=== PATIENT | male | born 1950 | race Caucasian/White ===

== ENCOUNTER 2016-09-20 01:09 | Inpatient (IN) | payer OTHER, MEDICARE ==
[~2016-09-20] VITALS: Ht 177.8 cm; Wt 82.8 kg
[2016-09-20] VITALS (25 sets, daily range): BP systolic 94–132; BP diastolic 57–87; PULSE 57–80; RESP 15–20; TEMP 97.8–98.5; O2SAT 93–99
[~2016-09-20 01:09] MED LIST: ACET325 PO; ATEN-100 PO; METHY5 PO; PROV100T3 PO; VIAG100T PO
[2016-09-20] MEDS ORDERED: TEST-55 INJ (01:26)
[2016-09-20] MEDS ORDERED: ATEN25TA PO (01:26)
[2016-09-20] MEDS ORDERED: RITA20TA PO (01:26)
[2016-09-20] MEDS ORDERED: VITACAP7 PO (01:26)
[2016-09-20] MEDS ORDERED: VIAG100T PO (01:26)
[2016-09-20] MEDS ORDERED: MODA100T9 PO (01:26)
[2016-09-20] MEDS ORDERED: LEVO25TA4 PO (01:26)
[2016-09-20 01:37] LABS: AUTOMATED NEUTROPHIL # 7.8 TH/MM3 (1.8-7.7); BASOPHIL # 0.1 TH/MM3 (0-0.2); BASOPHIL % 1.1 % (0.0-2.0); EOSINOPHIL # 0.5 TH/MM3 (0-0.4); EOSINOPHIL % 4.5 % (0.0-4.0); HEMATOCRIT 41.8 % (39.0-51.0); HEMO FLAGS DIFF FINAL; LYMPH % 16.3 % (9.0-44.0); LYMPHOCYTE # 1.8 TH/MM3 (1.0-4.8); MEAN CELL VOLUME 89.5 FL (80.0-100.0); MEAN CORPUSCULAR HEMOGLOBIN 29.5 PG (27.0-34.0); MEAN CORPUSCULAR HGB CONC 32.9 % (32.0-36.0); MONO % 8.2 % (0.0-8.0); NEUT % 69.9 % (16.0-70.0); PLATELET COUNT 242 TH/MM3 (150-450); RED BLOOD COUNT 4.67 MIL/MM3 (4.50-5.90); RED CELL DISTRIBUTION WIDTH 13.5 % (11.6-17.2); WHITE BLOOD COUNT 11.2 TH/MM3 (4.0-11.0)
[2016-09-20 01:49] LABS: APTT (PATIENT) 27.6 SEC (24.3-30.1); INTERNATIONAL NORMALIZED RATIO 0.9 RATIO; PROTHROMBIN TIME - PATIENT 10.2 SEC (9.8-11.6)
[2016-09-20 01:56] LABS: ANION GAP 5 MEQ/L (5-15); BICARBONATE 28.5 MEQ/L (21.0-32.0); BLOOD UREA NITROGEN 12 MG/DL (7-18); CHLORIDE 107 MEQ/L (98-107); GLOMERULAR FILTRATION RATE 70 ML/MIN (>89); SODIUM (NA) 140 MEQ/L (136-145)
[2016-09-20 01:59] LABS: CREATINE KINASE 171 U/L (39-308)
[2016-09-20] MEDS ORDERED: HEPARIN SODIUM - IV 10,000 UNITS/10 ML VIAL IV ONE (02:15)
[2016-09-20] MEDS ORDERED: NITROGLYCERIN 2% OINT 1 GM PACKET TOPICAL ONE (02:15)
[2016-09-20] MEDS ORDERED: ASPIRIN 81 MG CHEW TAB CHEW ONE (02:15)
[2016-09-20 02:16] LABS: CKMB 7.8 NG/ML (0.5-3.6)
--- NOTE | 2016-09-20 02:33 | PD ---
HPI Chief Complaint: Chest Pain Time Seen by Provider: 01:28 Travel History International Travel<30 days: No Contact w/Intl Traveler<30days: No Traveled to known affect area: No History of Present Illness HPI The patient is a 66 year old male who presents to the [facility] emergency department with a history of a burning sensation in the center of his chest that began this morning just after coming back from eating at noon. The patient reports that the pain has been coming and going. He reports it has been associated with symptoms of acid reflux and belching. The patient denies having any shortness of breath. He denies having any radiation of pain into his jaw. He does however report having a weakness in bilateral upper extremities with a mild sensation of tingling. He denies any prior history of myocardial infarction or congestive heart failure. He reports that he does have a sinus arrhythmia and occasional tachycardia for which she takes atenolol. He reports that yesterday his heartbeat seemed to be irregular therefore he took 2 extra doses of his a atenolol. The patient reports that the chest pain is a 3/10 in severity at this time. He reports that it lasted for 10-15 minutes at a time. He reports that it was improved initially with stretching and extending his back and walking, however that this would not help either. The patient reports that he smokes a pack of cigarettes per day. He denies any history of hypertension or diabetes mellitus. The patient denies any recent fevers, cough, congestion, neck pain, abdominal pain, vomiting, diarrhea , urinary symptoms, or neurologic symptoms. [facility] Past Medical History Narrative Medical The patient's past medical history is significant for bladder cancer in 2009 and in 2011, history of arthritis, history of skin cancer, history of tachycardia and a sinus arrhythmia, history of a lymphocytic colitis, history of chronic low back pain, chronic fatigue, history of sleep apnea, history of erectile dysfunction-he last took Viagra 8 weeks ago. Arthritis: Yes Anxiety: Yes Depression: Yes Cancer: Yes (BLADDER, SKIN ) Cardiovascular Problems: Yes (ARRHYTHMIA) Diabetes: No Diminished Hearing: No Diverticulitis: Yes (LYMPHOCITIC CHOLITIS) Endocrine: No Gastrointestinal Disorders: Yes (LYMPHOCYTIC COLITIS) Glaucoma: No Genitourinary: No Hepatitis: No Hiatal Hernia: No Hypertension: Yes Immune Disorder: No Musculoskeletal: Yes (BACK PAIN) Neurologic: Yes (CHRONIC FATIGUE) Psychiatric: No Reproductive: No Respiratory: Yes (SLEEP APNEA (NO CPAP)) Thyroid Disease: No Tetanus Vaccination: > 5 Years Influenza Vaccination: Yes Past Surgical History Narrative Surgical The patient's past surgical history is significant for bladder cancer resection by cystoscopy, history of tonsillectomy, right knee surgery. AICD: No Genitourinary Surgery: Yes (CYSTO, TURBT) Joint Replacement: No Oral Surgery: Yes (TONSILLECTOMY) Pacemaker: No Tonsillectomy: Yes Other Surgery: Yes Social History Alcohol Use: Yes (OCCAS. BEER) Tobacco Use: Yes (1 PPD) Substance Use: No Allergies-Medications (Allergen,Severity, Reaction): Coded Allergies: Dilaudid (Unverified Adverse Reaction, Severe, N & V, 09/20/16) Reported Meds & Prescriptions Reported Meds & Active Scripts Active Reported Ritalin IR (Methylphenidate HCl) 20 Mg Tab 20 Mg PO TIDAC Modafinil 100 Mg Tab 100 Mg PO BID Atenolol 25 Mg Tab 25 Mg PO BID Viagra (Sildenafil Citrate) 100 Mg Tab 100 Mg PO DAILY PRN Testosterone (Testosterone (Bulk)) 1 Pow Pow 10 Mg INJ 2XWEEK B Complex (B-Complex Vitamins) 1 Cap 1 Cap PO DAILY Levothyroxine (Levothyroxine Sodium) 25 Mcg Tab 25 Mcg PO DAILY Review of Systems General / Constitutional: No: Fever Eyes: No: Visual changes HENT: No: Headaches Cardiovascular: Positive: Chest Pain or Discomfort Respiratory: No: Shortness of Breath Gastrointestinal: Positive: Indigestion, No: Nausea, Vomiting, Diarrhea, Abdominal Pain Genitourinary: No: Dysuria Musculoskeletal: No: Pain Skin: No Rash Neurologic: Positive: Weakness, Paresthesia (bilateral upper extremity), No: Focal Abnormalities, Coordination Problem, Change in Mentation, Slurred Speech, Sensory Disturbance Psychiatric: No: Depression Endocrine: No: Polydipsia Hematologic/Lymphatic: No: Easy Bruising Physical Exam Narrative General: The patient is well-developed well-nourished male in no acute distress. Head and Neck exam: Head is normocephalic atraumatic. Eyes: EOMI, pupils are equal round and reactive to light. Nose: Midline septum with pink mucous membranes Mouth: Dentition unremarkable. Moist mucus membranes. Posterior oropharynx is not erythematous. No tonsillar hypertrophy. Uvula midline. Airway patent. Neck: No palpable lymphadenopathy. No nuchal rigidity. No thyromegaly. Cardiovascular: Regular rate and rhythm without murmurs, gallops, or rubs. No pulse deficit to the extremities and simultaneous auscultation and palpation of his radial artery. Lungs: Clear to auscultation bilaterally. No wheezes, rhonchi, or rales. Abdomen: Soft, without tenderness to palpation in all 4 quadrants of the abdomen. No guarding, rebound, or rigidity. Normal bowel sounds are audible. Extremities: No clubbing, cyanosis, or edema. 2+ pulses in all 4 extremities. No calf tenderness on palpation. Back: No spinous process tenderness to palpation. No costovertebral angle tenderness to palpation. Neurologic Exam: Grossly nonfocal. Skin Exam: No rash noted. Intact skin that is warm and dry. Data Data Last Documented VS Vital Signs Date Time Temp Pulse Resp B/P Pulse Ox O2 Delivery O2 Flow Rate FiO2 09/20/16 02:40 70 15 130/82 96 Room Air 09/20/16 01:10 98.1 Orders Electrocardiogram (09/20/16 01:26) Complete Blood Count With Diff (09/20/16 01:26) Basic Metabolic Panel (Bmp) (09/20/16 01:26) Ckmb (Isoenzyme) Profile (09/20/16 01:26) Troponin I (09/20/16 01:26) Chest, Single Ap (09/20/16 01:26) Iv Access Insert/Monitor (09/20/16:26) Ecg Monitoring (09/20/16:26) Oxygen Administration (09/20/16:26) Oximetry (09/20/16 01:26) Act Partial Throm Time (Ptt) (09/20/16 01:28) Prothrombin Time / Inr (Pt) (09/20/16 01:28) CKMB (09/20/16 01:25) CKMB% (09/20/16 01:25) Nitroglycerin Sl (Nitrostat Sl) (09/20/16 02:15) Nitroglycerin 2% Oint (Nitroglycerin 2% (09/20/16 02:15) Aspirin Chew (Aspirin Chew) (09/20/16 02:15) Heparin Infusion SERENA.Q1H (09/20/16 02:03) Heparin Inj (Heparin Inj) (09/20/16 02:15) Heparin-D5w Inj (Heparin-D5w Inj) (09/20/16 02:15) Act Partial Throm Time (Ptt) (09/20/16 02:03) Prothrombin Time / Inr (Pt) (09/20/16 02:03) Cbc No Diff, Includes Plts (09/20/16 02:03) Cbc No Diff, Includes Plts (09/23/16 06:00) Act Partial Throm Time (Ptt) (09/20/16 09:03) Occult Blood (Hemoccult) Stool (09/20/16 02:03) Pantoprazole Inj (Protonix Inj) (09/20/16 03:00) Sodium Chlorid 0.9% 500 Ml Inj (Ns 500 M (09/20/16 03:45) Admit Order (Ed Use Only) (09/20/16 03:56) Consult Cardiology (09/20/16 ) Labs Laboratory Tests Test 09/20/16 01:25 White Blood Count 11.2 TH/MM3 Red Blood Count 4.67 MIL/MM3 Hemoglobin 13.8 GM/DL Hematocrit 41.8 % Mean Corpuscular Volume 89.5 FL Mean Corpuscular Hemoglobin 29.5 PG Mean Corpuscular Hemoglobin 32.9 % Concent Red Cell Distribution Width 13.5 % Platelet Count 242 TH/MM3 Mean Platelet Volume 8.9 FL Neutrophils (%) (Auto) 69.9 % Lymphocytes (%) (Auto) 16.3 % Monocytes (%) (Auto) 8.2 % Eosinophils (%) (Auto) 4.5 % Basophils (%) (Auto) 1.1 % Neutrophils # (Auto) 7.8 TH/MM3 Lymphocytes # (Auto) 1.8 TH/MM3 Monocytes # (Auto) 0.9 TH/MM3 Eosinophils # (Auto) 0.5 TH/MM3 Basophils # (Auto) 0.1 TH/MM3 CBC Comment DIFF FINAL Differential Comment Prothrombin Time 10.2 SEC Prothromb Time International 0.9 RATIO Ratio Activated Partial 27.6 SEC Thromboplast Time Sodium Level 140 MEQ/L Potassium Level 4.0 MEQ/L Chloride Level 107 MEQ/L Carbon Dioxide Level 28.5 MEQ/L Anion Gap 5 MEQ/L Blood Urea Nitrogen 12 MG/DL Creatinine 1.05 MG/DL Estimat Glomerular Filtration 70 ML/MIN Rate Random Glucose 166 MG/DL Calcium Level 9.2 MG/DL Total Creatine Kinase 171 U/L Creatine Kinase MB 7.8 NG/ML Troponin I 0.60 NG/ML MDM Medical Decision Making Medical Screen Exam Complete: Yes Emergency Medical Condition: Yes Medical Record Reviewed: Yes Interpretation(s) Laboratory Tests Test 09/20/16 01:25 White Blood Count 11.2 TH/MM3 (4.0-11.0) Monocytes (%) (Auto) 8.2 % (0.0-8.0) Eosinophils (%) (Auto) 4.5 % (0.0-4.0) Neutrophils # (Auto) 7.8 TH/MM3 (1.8-7.7) Eosinophils # (Auto) 0.5 TH/MM3 (0-0.4) Estimat Glomerular Filtration 70 ML/MIN (>89) Rate Random Glucose 166 MG/DL (74-106) Creatine Kinase MB 7.8 NG/ML (0.5-3.6) Troponin I 0.60 NG/ML (0.02-0.05) Last Impressions Chest X-Ray 09/20/16 0126 Signed Impressions: Service Date/Time: Tuesday, September 20, 2016 02:16 - CONCLUSION: 1. No active disease. Eric Bowie MD Differential Diagnosis Acute coronary syndrome, versus acid reflux, versus pleurisy, versus pneumonia Narrative Course During the course of the patients emergency department visit, the patients history, examination, and differential diagnosis were reviewed with the patient. The patient had IV access obtained and blood work sent for analysis. The patient had an EKG done on arrival. The patient's EKG shows a sinus rhythm heart rate of 67, no acute ST segment elevation is noted. T waves are inverted in V1, V2, ST depression is noted in V5, lead 2. T waves are inverted in aVL. The patient was provided aspirin 162 mg by mouth 1. Nitroglycerin sublingual every 5 minutes 3 when necessary chest pain, nitroglycerin 1 inch the chest wall was applied. The patients laboratory studies were reviewed and remarkable for a troponin of 0.60. The patient was started on heparin per [place] protocol. A CBC that shows a white count of 11.2, hemoglobin 13.8, platelets 242 with 8.2 monocytes, CMP is remarkable for glucose of 166, CPK 171, MB percent 7.8, troponin I 0.60, PT PTT unremarkable Radiology studies were reviewed and remarkable for a chest x-ray that showed no acute abnormality. The patient on reexamination reported that his chest pain resolved with nitroglycerin. The patient's case was discussed with Dr. Argueta who did agree to see the patient in consultation. The patients results were discussed with the patient, including the plan of care. I explained that further testing and/ or monitoring is indicated based on the patients history, examination, and/ or laboratory findings. Therefore, I recommended admission for additional evaluation. The patient expressed understanding and was agreeable with this plan. The patient was admitted to the hospital in guarded condition and [facility] Physician Communication Physician Communication The patient's case was discussed with Dr. Bermeo who did agree to admit the patient for further evaluation and treatment at this time. Diagnosis Primary Impression: Acute non-ST segment elevation myocardial infarction Admitting Information Admitting Physician Requests: it Nadya Leong MD Sep 20, 2016 02:33
[2016-09-20] MEDS: HEPARIN-D5W INJ 250 ML IV SCH (02:41)
[2016-09-20] MEDS: NITROGLYCERIN 0.4 MG SL 25 TABS/BTL SL PRN ×4 (02:42→16:58)
--- NOTE | 2016-09-20 02:43 | RADRPT ---
EXAM DATE/TIME: 09/20/2016 02:16 [place] COMPARISON: No previous studies available for comparison. INDICATIONS : Shortness of breath. MEDICAL HISTORY : None. SURGICAL HISTORY : None. ENCOUNTER: Initial ACUITY: 1 day PAIN SCORE: Non-responsive. LOCATION: Bilateral chest FINDINGS: A single view of the chest demonstrates the lungs to be symmetrically aerated without evidence of mas s, infiltrate or effusion. The cardiomediastinal contours are unremarkable. Osseous structures are intact. CONCLUSION: 1. No active disease. Eric Bowie MD on September 20, 2016 at 2:40 Board Certified Radiologist. This report was verified electronically.
[2016-09-20] MEDS ORDERED: PANTOPRAZOLE SODIUM 40 MG VIAL IV PUSH ONE (03:00)
[2016-09-20] MEDS ORDERED: SODIUM CHLORID 0.9% 500 ML INJ 500 ML IV ONE (03:45)
[2016-09-20] MEDS ORDERED: BISACODYL 10 MG SUPP PR PRN (04:00)
[2016-09-20] MEDS ORDERED: ACETAMINOPHEN 325 MG TAB PO PRN (04:00)
[2016-09-20] MEDS ORDERED: ACETAMINOPHEN/HYDROcodone 325 MG/5 MG TAB PO PRN (04:00)
[2016-09-20] MEDS ORDERED: SODIUM CHLORIDE 0.9% FLUSH 5 ML FLUSH FLUSH PRN (04:00)
[2016-09-20] MEDS ORDERED: MORPHINE SULFATE 4 MG/ML INJ IV PRN (04:00)
[2016-09-20] MEDS ORDERED: ONDANSETRON HCL 4 MG/2 ML VIAL IVP PRN (04:00)
--- NOTE | 2016-09-20 04:21 | HHI.HP ---
HPI Service [facility] Primary Care Physician Non-Staff Admission Diagnosis Non STEMI Diagnoses: (1) NSTEMI (non-ST elevated myocardial infarction) Diagnosis: Principal (2) Dehydration Diagnosis: Principal (3) Tobacco abuse Diagnosis: Principal Travel History International Travel<30 Days: No Contact w/Intl Traveler <30 Da: No Traveled to Known Affected Are: No History of Present Illness This is a 66-year-old male with a PMH of HTN, Bladder CA, Anxiety, Depression, Sleep Apnea, Erectile Dysfunction, Tobacco Abuse and Chronic Back Pain who presented to the ER w/ complaints of epigastric/chest pain since approx 12pm yesterday. States felt pain was due to heartburn, pain initially improved w/ belching and sitting up straight, however pain progressively more severe throughout the day. Denies fever, chills, cough or SOB. On arrival, BP 132/87 , HR 76, O2 sat 96% on RA, Afebrile. CBC unremarkable except for WBC 11.2. Chemistry unremarkable except for GFR 70. Troponin 0.60. EKG with no acute ischemia. CXR with no acute findings. Dr. rAgueta consulted by ER physician, recommended Heparin gtt and will eval in am. Currently chest pain free. Of note, pt w/ h/o Erectile Dysfunction on Viagra however last dose approx 2 months ago. Review of Systems Except as stated in HPI: all other systems reviewed are Neg ROS: 14 point review of systems otherwise negative. Past Family Social History Past Medical History PMH: HTN, Bladder CA, Anxiety, Depression, Sleep Apnea, Erectile Dysfunction, Tobacco Abuse and Chronic Back Pain Past Surgical History PAST SURGICAL HISTORY: Tonsillectomy, TURP, Right Knee Surgery Allergies: Coded Allergies: Dilaudid (Unverified Adverse Reaction, Severe, N & V, 09/20/16) Family History PAST FAMILY HISTORY: Reviewed. No h/o DM or CAD Social History PAST SOCIAL HISTORY: Occasional alcohol. Smokes 1ppd. Negative for drugs. Physical Exam Vital Signs Vital Signs Date Time Temp Pulse Resp B/P Pulse Ox O2 Delivery O2 Flow Rate FiO2 09/20/16 02:40 70 15 130/82 96 Room Air 09/20/16 01:14 72 16 129/80 98 09/20/16 01:10 98.1 76 20 132/87 96 Room Air Physical Exam PE: GENERAL: Very pleasant middle-aged male in no acute distress. HEENT: PERRLA, EOMI. No scleral icterus or conjunctival pallor. No lid lag or facial droop. CARDIOVASCULAR: Regular rate and rhythm. No obvious murmurs to auscultation. No chest tenderness to palpation. RESPIRATORY: No obvious rhonchi or wheezing. Clear to auscultation. Breath sounds equal bilaterally. GASTROINTESTINAL: Abdomen soft, non-tender, nondistended. BS normal. MUSCULOSKELETAL: Extremities without clubbing, cyanosis, or edema. No obvious deformities. NEUROLOGICAL: Awake, alert and oriented x4. No focal neurologic deficits. Moving both upper and lower extremities spontaneously. Laboratory Laboratory Tests Test 09/20/16 01:25 White Blood Count 11.2 Red Blood Count 4.67 Hemoglobin 13.8 Hematocrit 41.8 Mean Corpuscular Volume 89.5 Mean Corpuscular Hemoglobin 29.5 Mean Corpuscular Hemoglobin 32.9 Concent Red Cell Distribution Width 13.5 Platelet Count 242 Mean Platelet Volume 8.9 Neutrophils (%) (Auto) 69.9 Lymphocytes (%) (Auto) 16.3 Monocytes (%) (Auto) 8.2 Eosinophils (%) (Auto) 4.5 Basophils (%) (Auto) 1.1 Neutrophils # (Auto) 7.8 Lymphocytes # (Auto) 1.8 Monocytes # (Auto) 0.9 Eosinophils # (Auto) 0.5 Basophils # (Auto) 0.1 CBC Comment DIFF FINAL Differential Comment Prothrombin Time 10.2 Prothromb Time International 0.9 Ratio Activated Partial 27.6 Thromboplast Time Sodium Level 140 Potassium Level 4.0 Chloride Level 107 Carbon Dioxide Level 28.5 Anion Gap 5 Blood Urea Nitrogen 12 Creatinine 1.05 Estimat Glomerular Filtration 70 Rate Random Glucose 166 Calcium Level 9.2 Total Creatine Kinase 171 Creatine Kinase MB 7.8 Troponin I 0.60 Result Diagram: 09/20/1612409/20/16124 Assessment and Plan Problem List: (1) NSTEMI (non-ST elevated myocardial infarction) ICD Code: I21.4 Status: Acute (2) Dehydration ICD Code: E86.0 Status: Acute (3) Tobacco abuse ICD Code: Z72.0 Status: Acute Assessment and Plan A/P: 1. NSTEMI: c/o acute chest/epigastric pain earlier today, Trop 0.60, EKG w/ no acute changes. Dr. Argueta consulted by ER physician, recommended Heparin gtt and will eval in am. Currently chest pain free. Morphine prn. Check serial cardiac enzymes, lipid profile, Hgb A1c, TSH. ASA, Statin, B-abdoulaye. Admit to [facility], telemetry. 2. Dehydration: GFR 70, IVF for hydration, repeat labs in am. 3. Tobacco Abuse: Counselled. Ativan prn if needed. No NicoDerm to avoid vasoconstriction. 4. DVT Prophylaxis: Heparin gtt 5. Social work for d/c planning as needed. 6. Case discussed w/ ER physician at length. Physician Certification 2 Midnight Certification Type: Admission for Inpatient Services Order for Inpatient Services The services are ordered in accordance with Medicare regulations or non- Medicare payer requirements, as applicable. In the case of services not specified as inpatient-only, they are appropriately provided as inpatient services in accordance with the 2-midnight benchmark. Estimated LOS (days): 2 days is the estimated time the patient will need to remain in the hospital, assuming treatment plan goals are met and no additional complications. Post-Hospital Plan: Not yet determined Debbie Bermeo MD Sep 20, 2016 04:21
[2016-09-20] MEDS: SODIUM CHLOR 0.9% 1000 ML INJ 1,000 ML IV SCH ×2 (04:41→13:58)
[2016-09-20 08:31] LABS: APTT (PATIENT) 57.5 SEC (24.3-30.1)
[2016-09-20 09:00] LABS: HDL CHOLESTEROL 40.9 MG/DL (40.0-60.0); LDL CHOLESTEROL 118 MG/DL (0-99)
[2016-09-20] MEDS ORDERED: SODIUM CHLORIDE 0.9% FLUSH 5 ML FLUSH FLUSH SCH (09:00)
[2016-09-20] MEDS ORDERED: PRAVASTATIN SOD 40 MG TAB PO SCH (09:00)
[2016-09-20] MEDS: METOPROLOL TARTRATE 25 MG TAB PO SCH ×2 (09:24→20:13)
[2016-09-20] MEDS: ASPIRIN EC 81 MG TABEC PO SCH (09:27)
[2016-09-20] MEDS ORDERED: HEPARIN-NS/PF INJ 500 ML ONE (09:41)
[2016-09-20] MEDS ORDERED: MIDAZOLAM HCL 2 MG/2 ML VIAL ONE (09:41)
[2016-09-20] MEDS ORDERED: HEPARIN SODIUM - IV 10,000 UNITS/10 ML VIAL ONE (09:42)
[2016-09-20] MEDS ORDERED: NITROGLYCERIN INJ 5 ML ONE (09:42)
[2016-09-20] MEDS ORDERED: VERAPAMIL HCL 5 MG/2 ML VIAL ONE (09:51)
--- NOTE | 2016-09-20 09:57 | MB ---
cc: SCOTT BARDALES DO DATE OF CONSULTATION: 09/20/2016 REASON FOR CONSULTATION NSTEMI. HISTORY OF PRESENT ILLNESS Sameer Redman is a pleasant 66-year-old male who presents to [facility] on September 20, 2016 due to chest burning. He states that he felt a burn in his chest all-day yesterday. He was belching and kind of felt slightly better but it was never relieved. He was also sitting up straight and that made him feel somewhat better. He denies fevers, chills, cough or shortness of breath. He has never had an episode like this before. During initial lab draws he was found to have a troponin of 0.60. At that time he was placed on a heparin drip. In seeing him this morning he has no current chest pain or shortness of breath. He states the chest pain went away when he was given nitroglycerin. PAST MEDICAL HISTORY 1. Hypertension. 2. Bladder cancer. 3. Anxiety. 4. Depression. 5. Sleep apnea. 6. Erectile dysfunction. 7. History of tobacco abuse. 8. Chronic back pain. PAST SURGICAL HISTORY 1. Tonsillectomy. 2. TURP. 3. Right knee surgery. ALLERGIES DILAUDID CAUSES NAUSEA OR VOMITING. MEDICATIONS 1. Modafinil 100 mg b.i.d. 2. Synthroid 25 mcg daily. 3. Ritalin IR 20 mg t.i.d. 4. Viagra 100 mg daily as needed. 5. Atenolol 25 mg b.i.d. 6. Testosterone 10 mg injected. FAMILY HISTORY Denies premature coronary artery disease or sudden cardiac within the family. SOCIAL HISTORY Occasionally drinks alcohol. Has smoked for a number of years originally smoking three packs per day and then quit for 10 years then restarted smoking at one pack per day. Denies drugs. REVIEW OF SYSTEMS 14-systems were reviewed including osteopathic with pertinent positives and negatives as above, otherwise negative. PHYSICAL EXAMINATION VITAL SIGNS: Temperature 98.1, heart rate 69, blood pressure 115/65, respirations 16, pulse ox 96% on room air. GENERAL: In general the patient appears well, in no acute distress, alert, awake and oriented x3. HEENT: Extraocular muscles intact. Mucous membranes moist. NECK: Supple. No JVD at 45 degrees. No carotid bruits heard bilaterally. Carotid upstroke is brisk in nature. HEART: Regular rate and rhythm. Positive first and second heart sounds with no noted murmurs, gallops or rubs. PMI does not appear displaced. LUNGS: Decreased breath sounds at bilateral bases but no overt wheezes, rales or rhonchi. ABDOMEN: Soft, nontender, nondistended. No organomegaly noted. EXTREMITIES: No clubbing, cyanosis or edema. Femoral and distal pulses intact bilaterally. NEUROLOGIC: No focal deficits. MUSCULOSKELETAL: Osteopathically no kyphoscoliosis, lordosis or paraspinal tender points. ELECTROCARDIOGRAM Electrocardiogram (September 20, 2016 at 0116): Normal sinus rhythm, mild ST depression inferolaterally, biphasic T-waves in V1 and V2. IMPRESSION 1. Chest pain concerning for coronary insufficiency. 2. NSTEMI. 3. History of hypertension. 4. Tobacco abuse. RECOMMENDATIONS 1. Due to Mr. Redman's chest pain and elevated troponin, the recommendation is that he undergo cardiac catheterization. He understands the risks, benefits and alternatives and signs consent as such. 2. Will check a 2-D echo to look at his overall left ventricular function, cardiac structure and possible valulopathies. 3. He will be further risk stratified including a lipid profile and hemoglobin A1c. 4. I spoke to him for greater than three minutes about tobacco cessation which he understands. 5. Further recommendations will be made after coronary visualization. Thank you for allowing me to see Sameer Redman. If there are any questions, please do not hesitate to call. Scott Bardales DO VGP/BT /9:29 AM /9:45 AM
[2016-09-20] MEDS ORDERED: SODIUM CHLORIDE 0.9% FLUSH 5 ML FLUSH IVF PRN (10:45)
[2016-09-20] MEDS ORDERED: IOHEXOL 350 MG/ML 100 ML BTL (for Cath Lab) OTHER ONE (11:25)
--- NOTE | 2016-09-20 12:10 | EKG ---
Date Performed: 09/20/2016 Time Performed: 01:16:44 PTAGE: 66 years EKG: Sinus rhythm MODERATE ST DEPRESSION Compared to the previous tracing, nonspecific ST segment changes are now not ed in the inferolateral leads ABNORMAL ECG PREVIOUS TRACING : 04/29/2013 10.18 DOCTOR: Obdulio Rangel Interpretating Date/Time 09/20/2016 12:08:13
--- NOTE | 2016-09-20 13:07 | MA ---
cc: SCOTT BARDALES DO DATE: 09/20/2016 PROCEDURE Left heart catheterization, coronary angiogram, moderate sedation 15 minutes. PREPROCEDURE DIAGNOSIS NSTEMI, chest pain. POSTPROCEDURE DIAGNOSIS Multivessel coronary artery disease, NSTEMI. MEDICATION USED 1. Versed 1 mg. 2. Fentanyl 50 mcg. 3. Verapamil 2.5 mg. 4. Nitro 200 mcg. CONTRAST USED 55 cc. FLUOROSCOPY TIME Three minutes. ESTIMATED BLOOD LOSS 10 cc. PROCEDURAL SUMMARY Sameer Redman is a pleasant 66-year-old male who originally presented with chest pain to the emergency room and was found to have an elevated troponin. Due to his chest pain and elevated troponin it was felt that he should undergo coronary visualization. The risks, benefits and alternatives were explained to him and he consented as such. He was brought to the lab and prepped in the usual sterile fashion. The right radial artery was accessed using a modified Seldinger technique and placement of a 5/6 Slender sheath. This was easily aspirated and flushed. A JR4 was then advanced to the ascending aorta over a J-wire and across the aortic valve. Left ventricular end-diastolic pressure was measured at 22. JR4 was then pulled back across the aortic valve showing no significant gradient of aortic stenosis. The JR4 was used for nonselective angiography of the right coronary artery which showed a dominant vessel with a mid lesion of 95%. The JR4 was then exchanged for a JL 3.5 which was used for selective angiography of the left coronary system. The left main is a normal-appearing vessel with 10% in the proximal portion. It bifurcates into an LAD and left circumflex. The LAD has a tight proximal lesion of 95% right at the bifurcation of the first diagonal. The midportion of the LAD has a 50% lesion. The diagonal covers a large area and has no significant disease other than the proximal portion from the bifurcation lesion. The circumflex is a relatively normal-appearing vessel with one large obtuse marginal off of it and no significant disease. The JL 3.5 was then removed over a J-wire. I spoke to the patient and let him know that he should at least consider open heart bypass and that was my recommendation and he agreed to. A radial sheath was placed over the radial arteriotomy with removal of the sheath and hemostasis obtained. At the time of leaving the label cutter he had no chest pain. He left the label cutter cardiovascularly stable. IMPRESSIONS 1. NSTEMI. 2. Multivessel coronary artery disease. 3. Tobacco abuse. RECOMMENDATIONS 1. Because Manjeet has significant lesion of the proximal LAD as well as at the bifurcation of the LAD/diagonal and the RCA, I felt that he should at least consider open heart surgery. His significant other did mention that his most recent hemoglobin A1c was 6.3 putting him in the pre-diabetes/diabetes with a significant lesion in the proximal LAD as well as two-vessel disease. 2. Will obtain a 2-D echo to look at his overall left ventricular function as well as cardiac structure and valvulopathies. 3. I spoke to Dr. Spear about the case who agrees that further workup should be done from a cardiothoracic surgery standpoint. 4. He will be placed back on a heparin drip due to his NSTEMI and significant disease. 5. If he does have any chest pain he may need a nitro drip to further alleviate this. Thank you for allowing me to see Sameer Redamn. If there are any questions, please do not hesitate to call. Scott Bardales DO VGP/BT /12:45 PM /12:56 PM MTDD
[2016-09-20 14:51] LABS: APTT (PATIENT) 32.8 SEC (24.3-30.1)
[2016-09-20] MEDS ORDERED: INSULIN REGULAR (IV INFUSION) 100 UNITS in SODIUM CHLORIDE 0.9% INJ 100 ML IV SCH (15:00)
[2016-09-20] MEDS ORDERED: CHLORHEXIDINE GLUCONATE 4% SOLN 120 ML BTL TOPICAL SCH (15:00)
[2016-09-20] MEDS ORDERED: SODIUM CHLORIDE 0.9% FLUSH 5 ML FLUSH IV FLUSH PRN (15:00)
[2016-09-20] MEDS ORDERED: METOPROLOL TARTRATE 25 MG TAB PO SCH (15:00)
[2016-09-20] MEDS ORDERED: ceFAZolin 2 GM PREMIX 50 ML IV SCH (15:00)
[2016-09-20] MEDS ORDERED: CEFAZOLIN INJ 500 MG in SODIUM CHLORIDE 0.9% IRR BTL 500 ML IRRIGATION SCH (15:00)
[2016-09-20] MEDS ORDERED: PAPAVERINE INJ 60 MG, NITROGLYCERIN INJ 100 MCG, DILTIAZEM INJ 100 MG in SODIUM CHLORID... IRRIGATION SCH (15:00)
--- NOTE | 2016-09-20 15:23 | EC ---
Study Study Date:09/20/2016 STUDY CONCLUSIONS SUMMARY LEFT VENTRICLE: The cavity size was normal. Wall thickness was normal. Systolic function was moderately reduced. The estimated ejection fraction was in the range of 35% to 40%. Distal anteroseptal hypokinesis. If LV function is below 40, please consider prescribing an ACEI or ARB or document rationale for non-use. PROCEDURE DATA STUDY STATUS: Elective. Procedure: Transthoracic echocardiography. Image quality was good. Scanning was performed from the parasternal, apical, and subcostal acoustic windows. Study completion: The patient tolerated the procedure well. Transthoracic echocardiography. M-mode, complete 2D, complete spectral Doppler, and color Doppler. Height: Height: 70in. Weight: Weight: 164.7lb. Body mass index: BMI: 23.7kg/m^2. Body surface area: BSA: 1.92m^2. Patient status: Inpatient. CARDIAC ANATOMY LEFT VENTRICLE: The cavity size was normal. Wall thickness was normal. Systolic function was moderately reduced. The estimated ejection fraction was in the range of 35% to 40%. Distal anteroseptal hypokinesis. AORTIC VALVE: Trileaflet; normal thickness leaflets. Doppler: Transvalvular velocity was within the normal range. There was no stenosis. No regurgitation. Valve area: 2.49cm^2 (Vmax). Indexed valve area: 1.3cm^2/m^2 (Vmax). AORTA: Aortic root: The aortic root was normal in size. MITRAL VALVE: Structurally normal valve. Doppler: Transvalvular velocity was within the normal range. There was no evidence for stenosis. No regurgitation. Peak gradient: 4mm Hg (D). LEFT ATRIUM: The atrium was normal in size. RIGHT VENTRICLE: The cavity size was normal. Wall thickness was normal. PULMONIC VALVE: Doppler: Transvalvular velocity was within the normal range. There was no evidence for stenosis. No regurgitation. TRICUSPID VALVE: Structurally normal valve. Doppler: Transvalvular velocity was within the normal range. No regurgitation. PULMONARY ARTERY: The main pulmonary artery was normal-sized. Systolic pressure was within the normal range. RIGHT ATRIUM: The atrium was normal in size. PERICARDIUM: There was no pericardial effusion. SYSTEMIC VEINS: Inferior vena cava: The vessel was normal in size. Patient weight: 164.7lb _Ejection fraction:_ 65-75% _Fractional shortening:_ 32% up to 5Kg 5-11.5Kg 11.6-22.9Kg 23-45Kg 45-57Kg Aortic Root 7-13 <17 13-22 17-27 17-27 LA diam 6-13 <23 24-38 33-47 37-40 RVID 10-17 7-15 7-15 7-18 8-17 LVIDd 12-22 <32 24-38 33-47 37-40 LVPW 2-4 3-6 5-7 6-8 7-8 IVS 2-4 3-6 5-7 6-8 7-8 BASIC MEASUREMENTS ADULT NORMAL Left ventricle LV internal dimension, ED, chordal 48.8 mm 43-52 level, PLAX LV internal dimension, ES, chordal *42.6 mm 23-38 level, PLAX Fractional shortening, chordal level, *13 % >29 PLAX LV posterior wall thickness, ED 8.19 mm IVS/LVPW ratio, ED 1.03 <1.3 Ventricular septum Septal thickness, ED 8.45 mm Aortic valve Leaflet separation 20 mm 15-26 BASIC MEASUREMENTS ADULT NORMAL Aortic valve Leaflet separation 20 mm 15-26 Aorta Root diameter, ED 33 mm 20-37 Left atrium Anterior-posterior dimension, ES 29 mm 19-40 Anterior-posterior dimension index, ES 1.51 cm/m^2 <2.2 LA/aortic root ratio 0.88 DOPPLER MEASUREMENTS ADULT NORMAL Aortic valve Peak velocity, S 89.6 cm/s Valve area, Vmax 2.49 cm^2 Valve area index, Vmax 1.3 cm^2/m^2 Mitral valve Peak E-wave velocity 102 cm/s Peak A-wave velocity 51.8 cm/s Deceleration time 165 ms 150-230 Peak gradient, D 4 mm Hg Peak E/A ratio 2 Pulmonic valve Peak velocity, S 73.3 cm/s LEGEND: Mean values are shown as u=mean value. Asterisk (*) sutherland values outside specified normal range. Prepared and signed by Willie Pace [id number]
[2016-09-20] MEDS: LEVOTHYROXINE SODIUM 25 MCG TAB PO SCH (15:30)
--- NOTE | 2016-09-20 15:30 | PD.CAR.PN ---
CVT Progress Note Subjective/Hospital Course: sts data discussed with pt RISK SCORES About the STS Risk Calculator Procedure: CAB Only Risk of Mortality: 1.058% Morbidity or Mortality: 12.573% Long Length of Stay: 4.765% Short Length of Stay: 46.861% Permanent Stroke: 1.025% Prolonged Ventilation: 8.357% DSW Infection: 0.49% Renal Failure: 2.386% Reoperation: 4.854% Objective: Vital Signs Date Time Temp Pulse Resp B/P Pulse Ox O2 Delivery O2 Flow Rate FiO2 09/20/16 13:00 63 09/20/16 12:00 60 09/20/16 11:00 57 09/20/16 11:00 97.8 64 16 94/57 95 09/20/16 09:07 98.1 65 18 114/66 99 09/20/16 04:40 69 16 99/68 96 Room Air 09/20/16 04:30 64 16 98/63 95 Room Air 09/20/16 04:00 64 16 103/62 97 Room Air 09/20/16 03:30 65 16 101/65 96 Room Air 09/20/16 03:00 63 16 114/66 96 Room Air 09/20/16 02:45 70 16 121/76 94 Room Air 09/20/16 02:41 80 16 130/82 95 Room Air 09/20/16 02:40 70 15 130/82 96 Room Air 09/20/16 02:00 65 16 128/86 99 Room Air 09/20/16 01:14 72 16 129/80 98 09/20/16 01:10 98.1 76 20 132/87 96 Room Air Labs: Laboratory Tests Test 09/20/16 09/20/16 08:15 14:17 Activated Partial 57.5 SEC 32.8 SEC Thromboplast Time (24.3-30.1) (24.3-30.1) Troponin I 3.24 NG/ML 3.28 NG/ML (0.02-0.05) (0.02-0.05) Triglycerides Level 106 MG/DL (42-150) Cholesterol Level 180 MG/DL (120-200) LDL Cholesterol 118 MG/DL (0-99) HDL Cholesterol 40.9 MG/DL (40.0-60.0) Cholesterol/HDL Ratio 4.40 RATIO Thyroid Stimulating Hormone 1.310 uIU/ML 3rd Gen (0.358-3.740) Result Diagram: 09/20/1612409/20/16124 Shadia Guadarrama Sep 20, 2016 15:30
--- NOTE | 2016-09-20 17:40 | RADRPT ---
EXAM DATE/TIME: 09/20/2016 16:20 [facility] COMPARISON: No previous studies available for comparison. INDICATIONS : Preop cardiac surgery. MEDICAL HISTORY : Carcinoma, bladder. Hypertension. Diverticulitis. Skin cancer. Arrhythmia. Sleep apnea. Tuberculosis. Sleep apnea. Lymphocytic colitis. Renal disease. Arthritis. Depression. Anxiety. SURGICAL HISTORY : Tonsillectomy. Cysto. TURBT. Bladder tumor removed. Orthopedic surgery, right knee. ENCOUNTER: Initial ACUITY: 1 day PAIN SCORE: 0/10 LOCATION: Bilateral neck PEAK SYSTOLIC VELOCITIES (cm/sec): ICA/CCA RATIO: Right: 1.1 Left: 0.9 ICA: Right: 58 Left: 60 CCA: Right: 53 Left: 67 ECA: Right: 51 Left: 58 VERTEBRAL: Right: 51 antegrade Left: 33 antegrade Elevated flow velocities and ICA/CCA ratios have been found to correlate with increased degrees of vessel stenosis, calculated as percentage of diameter relative to a normal segment of distal ICA/CCA FINDINGS: RIGHT CAROTID: No significant stenosis is visualized. The waveforms are within normal limits. LEFT CAROTID: No significant stenosis is visualized. The waveforms are within normal limits. VERTEBRAL ARTERIES: Antegrade flow is seen in both vertebral arteries. MISCELLANEOUS: None. CONCLUSION: Negative for Hemodynamically significant stenosis. Rafa French MD FACR on September 20, 2016 at 17:37 Board Certified Radiologist. This report was verified electronically.
--- NOTE | 2016-09-20 17:48 | RADRPT ---
EXAM DATE/TIME: 09/20/2016 15:20 [facility] COMPARISON: No previous studies available for comparison. INDICATIONS : Preop cardiac surgery. MEDICAL HISTORY : Carcinoma, bladder. Hypertension. Diverticulitis. Skin cancer. Arrhythmia. Sleep apnea. Tuberculosis. Sleep apnea. Lymphocytic colitis. Renal disease. Arthritis. Depression. Anxiety. SURGICAL HISTORY : Tonsillectomy. Cysto. TURBT. Bladder tumor removed. Orthopedic surgery, right knee. ENCOUNTER: Initial ACUITY: 1 day PAIN SCORE: 0/10 LOCATION: Bilateral leg. TECHNIQUE: Venous ultrasound of the left and right leg was performed from the inguinal ligament to the proximal calf. Real-time, color Doppler and spectral tracing, compression and augmentation techniques were us ed. FINDINGS: RIGHT LEG: There is normal compressibility of the deep venous system from the inguinal region to the proximal ca lf. No echogenic clot is seen in the lumen of the common femoral, femoral, popliteal, and posterior tibial veins. There is a normal response of the venous system to proximal and distal augmentation an d respiration. LEFT LEG: There is normal compressibility of the deep venous system from the inguinal region to the proximal ca lf. No echogenic clot is seen in the lumen of the common femoral, femoral, popliteal, and posterior tibial veins. There is a normal response of the venous system to proximal and distal augmentation an d respiration. CONCLUSION: Negative for Deep Venous Thrombosis.. Rafa French MD FACR on September 20, 2016 at 17:46 Board Certified Radiologist. This report was verified electronically.
--- NOTE | 2016-09-20 17:55 | RADRPT ---
EXAM DATE/TIME: 09/20/2016 15:35 [facility] COMPARISON: No previous studies available for comparison. INDICATIONS : Preop cardiac surgery. MEDICAL HISTORY : Carcinoma, bladder. Hypertension. Diverticulitis. Skin cancer. Arrhythmia. Sle ep apnea. Tuberculosis. Sleep apnea. Lymphocytic colitis. Renal disease. Arthritis. Depression. Anxie ty. SURGICAL HISTORY : Tonsillectomy. Cysto. TURBT. Bladder tumor removed. Orthopedic surgery, righ t knee. ENCOUNTER: Initial ACUITY: 1 day PAIN SCORE: 0/10 LOCATION: Bilateral leg. GREATER SAPHENOUS VEIN THIGH: PROXIMAL: Right 4 mm Left 4 mm MID: Right 5 mm Left 3 mm DISTAL: Right 3 mm Left 3 mm CALF: PROXIMAL: Right 2 mm Left 4 mm MID: Right 2 mm Left 3 mm DISTAL: Right 2 mm Left 3 mm FINDINGS: The venous system of the lower extremities are patent by color Doppler imaging. Measurements of the leg veins (in mm) are listed above. CONCLUSION: Venous mapping as described above. Rafa French MD FACR on September 20, 2016 at 17:53 Board Certified Radiologist. This report was verified electronically.
[2016-09-20] MEDS: SODIUM CHLORIDE 0.9% FLUSH 5 ML FLUSH IV FLUSH SCH (20:17)
[2016-09-20] MEDS ORDERED: SODIUM CHLORIDE 0.9% FLUSH 5 ML FLUSH IVF SCH (21:00)
[2016-09-20] MEDS ORDERED: ATORVASTATIN 80 MG TAB PO SCH (21:00)
[2016-09-20 22:09] LABS: HEMOGLOBIN A1a 1.8 %; HEMOGLOBIN A1b 1.6 %; HEMOGLOBIN Ao 84.4 %; HEMOGLOBIN P3 3.5 %
[2016-09-20 22:17] LABS: APTT (PATIENT) 37.9 SEC (24.3-30.1)
[2016-09-21] VITALS (24 sets, daily range): BP systolic 94–128; BP diastolic 56–73; PULSE 52–113; RESP 13–20; TEMP 97.5–99; O2SAT 93–98
[2016-09-21 01:37] LABS: BLOOD, URINE NEG (NEG); GLUCOSE,URINE NEG (NEG); KETONE, URINE NEG (NEG); MUCUS URINE FEW /lpf (OCC); NITRITE,URINE NEG (NEG); PH, URINE 5.5 (5.0-8.5); SQUAMOUS EPITHELIAL CELL URINE <1 /hpf (0-5); URINE COLOR YELLOW (YELLW/STRAW)
[2016-09-21 01:38] LABS: COMMENT (UR) CULT NOT INDICATED; CULTURE IF INDICATED CULT NOT INDICATED
[2016-09-21] MEDS ORDERED: CALCIUM CHLORIDE 10% SOLN 1 GRAM/10 ML SYR IV ONE (05:00)
[2016-09-21] MEDS ORDERED: SODIUM BICARBONATE 8.4% SOLN 50 MEQ/50 ML VIAL IV ONE (05:00)
[2016-09-21] MEDS ORDERED: GLYCOPYRROLATE 0.2 MG/ML VIAL IV ONE (05:00)
[2016-09-21] MEDS ORDERED: AMIODARONE HCL 150 MG/3 ML VIAL IV ONE (05:00)
[2016-09-21] MEDS ORDERED: PROTAMINE SULFATE 250 MG/25 ML VIAL IV ONE ×2 (05:00→11:18)
[2016-09-21] MEDS ORDERED: DEXMEDETOMIDINE INJ 50 ML IV ONE (05:00)
[2016-09-21] MEDS ORDERED: MAGNESIUM SULFATE 1000 MG/2 ML VIAL (PED) IV ONE (05:00)
[2016-09-21] MEDS ORDERED: PHENYLEPHRINE HCL 10 MG/ML VIAL IV ONE (05:00)
[2016-09-21] MEDS ORDERED: NITROGLYCERIN-DEXTROSE INJ 250 ML IV ONE (05:00)
[2016-09-21] MEDS ORDERED: ceFAZolin INJ 1,000 MG VIAL IV ONE (05:00)
[2016-09-21] MEDS ORDERED: HEPARIN SODIUM - SQ 10,000 UNITS/ML VIAL SQ ONE (05:00)
[2016-09-21] MEDS ORDERED: LIDOCAINE HCL 2% 100 MG/5 ML SYRINGE IV PUSH ONE (05:00)
[2016-09-21] MEDS ORDERED: VECURONIUM BROMIDE 10 MG VIAL IV ONE (05:00)
[2016-09-21] MEDS ORDERED: ceFAZolin 2 GM PREMIX 50 ML IV ONE (05:00)
[2016-09-21] MEDS ORDERED: ESMOLOL HCL 100 MG/10 ML VIAL IV ONE (05:00)
[2016-09-21] MEDS: LEVOTHYROXINE SODIUM 25 MCG TAB PO SCH (05:42)
[2016-09-21] MEDS: HEPARIN-D5W INJ 250 ML IV SCH (05:52)
[2016-09-21 06:07] LABS: AUTOMATED NEUTROPHIL # 6.4 TH/MM3 (1.8-7.7); BASOPHIL # 0.1 TH/MM3 (0-0.2); BASOPHIL % 0.7 % (0.0-2.0); EOSINOPHIL # 0.4 TH/MM3 (0-0.4); HEMATOCRIT 39.5 % (39.0-51.0); HEMO FLAGS DIFF FINAL; LYMPH % 24.6 % (9.0-44.0); LYMPHOCYTE # 2.5 TH/MM3 (1.0-4.8); MEAN CELL VOLUME 88.4 FL (80.0-100.0); MEAN CORPUSCULAR HEMOGLOBIN 30.4 PG (27.0-34.0); MEAN CORPUSCULAR HGB CONC 34.4 % (32.0-36.0); MONO % 6.7 % (0.0-8.0); PLATELET COUNT 216 TH/MM3 (150-450); RED BLOOD COUNT 4.47 MIL/MM3 (4.50-5.90); RED CELL DISTRIBUTION WIDTH 13.8 % (11.6-17.2); WHITE BLOOD COUNT 10.1 TH/MM3 (4.0-11.0)
[2016-09-21 06:21] LABS: APTT (PATIENT) 43.7 SEC (24.3-30.1)
[2016-09-21 06:35] LABS: ALT (GPT) 27 U/L (12-78); ANION GAP 8 MEQ/L (5-15); AST (GOT) 45 U/L (15-37); BICARBONATE 27.7 MEQ/L (21.0-32.0); BLOOD UREA NITROGEN 10 MG/DL (7-18); CHLORIDE 107 MEQ/L (98-107); GLOMERULAR FILTRATION RATE 75 ML/MIN (>89); POTASSIUM 4.1 MEQ/L (3.5-5.1); SODIUM (NA) 143 MEQ/L (136-145)
[2016-09-21 06:37] LABS: ALKALINE PHOSPHATASE 55 U/L (45-117); TOTAL BILIRUBIN ADULT 0.3 MG/DL (0.2-1.0)
[2016-09-21] MEDS ORDERED: LORazepam 2 MG/ML VIAL IV PUSH PRN (06:45)
--- NOTE | 2016-09-21 07:32 | HHI.PR ---
Subjective Remarks no chest pains or shortness of breath, no leg pains no nausea or vomiting ready to "jump out of my skin"- on Ritalin as OP 20 mg tid for years maintenance on Provigil bid for sleep disorder- patient can dozed off easily had sleep studies done before Objective Vitals Vital Signs Date Time Temp Pulse Resp B/P Pulse Ox O2 Delivery O2 Flow Rate FiO2 09/20/16 18:00 65 09/20/16 17:00 69 09/20/16 16:00 63 09/20/16 15:00 57 09/20/16 15:00 57 09/20/16 15:00 98.3 64 18 105/65 95 09/20/16 14:00 62 09/20/16 13:00 63 09/20/16 12:00 60 09/20/16 11:00 57 09/20/16 11:00 97.8 64 16 94/57 95 09/20/16 09:07 98.1 65 18 114/66 99 I/O 09/20/16 09/20/16 09/20/16 09/21/16 09/21/16 09/21/16 07:00 15:00 23:00 07:00 15:00 23:00 Intake Total 841 ml Balance 841 ml Intake Oral 720 ml IV Total 121 ml # Voids 1 Result Diagram: 09/21/16 0555 09/21/16 0555 Imaging Last Impressions Chest X-Ray 09/20/16 0126 Signed Impressions: Service Date/Time: Tuesday, September 20, 2016 02:16 - CONCLUSION: 1. No active disease. Eric Bowie MD Lower Extremity Ultrasound 09/20/16 0000 Signed Impressions: Service Date/Time: Tuesday, September 20, 2016 15:35 - CONCLUSION: Venous mapping as described above. Rafa French MD FACR Carotid Artery Ultrasound 09/20/16 0000 Signed Impressions: Service Date/Time: Tuesday, September 20, 2016 16:20 - CONCLUSION: Negative for Hemodynamically significant stenosis. Rafa French MD FACR Objective Remarks awake and alert, oriented x 3 anicteric lungs clear rgular rhythm abdomen soft, nontender extremities no edema neuro exam- unremarkable Procedures 09/20- Cardia catheterization- Multivessel disease A/P Problem List: (1) NSTEMI (non-ST elevated myocardial infarction) ICD Code: I21.4 Status: Acute (2) Dehydration ICD Code: E86.0 Status: Acute (3) Tobacco abuse ICD Code: Z72.0 Status: Acute Assessment and Plan 66 years old male ACS- NSTEMI: S/P cardiac catheterization- multivessel disease for CABG today BB, ASA, Heparin drip DC statins- per patient and gets- severe myalgias/muscle cramps and aches Ischemic Cardiomyopathy EF 35- 40 %. on BB BP - borderline. consider adding MARYANNE- post surgery Dehydration: GFR 70creatinine improved. Decrease IVF to KVO DM type 2- Hemoglobin A1C 6.3 per - A1C has been on that range but never addressed ff blood sugars post op, Insulin if needed for tight control History of ADHD- History of Sleep disorder - Narcolepsy On Ritalin 20 mg po tid- maintenance for years - give a dose now- with sips of water - restart post surgery Provigil 20 mg bid- start post op Ativan 1 mg q 6 IV prn for anxiety Tobacco Abuse: Counselled. Ativan prn if needed. No NicoDerm to avoid vasoconstriction. history of hypothyroidism continue Synthroid DVT Prophylaxis: Heparin gtt Social work for d/c planning as needed. discussed with and patient will need cardiac rehab post surgery Mehnaz Alcala MD Sep 21, 2016 07:32
[2016-09-21] MEDS ORDERED: METHYLPHENIDATE HCL 10 MG TAB PO STA (08:04)
--- NOTE | 2016-09-21 08:09 | MB ---
cc: LORETTA SPEAR DATE OF CONSULTATION 09/20/2016 DATE OF 1950. 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 A 66-year-old male that had a sudden onset two days ago of some midsternal dull pain, then became worse, more like a burning after he saw his [id number] on the ground outside, tried to pick her up and then started having this pain. Noticed some heaviness in his arms. The pain was off and on the following next day and then came in to the emergency department. He was found to have a non-ST elevation myocardial infarction. A troponin elevated to 3.24. He had some associated nausea, no diaphoresis, no shortness of breath. Risk factors include age, hypertension, glucose intolerance. The patient underwent cardiac cath today by Dr. Roldan which showed left main disease of 10%, 95% proximal LAD, 50% mid-distal LAD, diagonal 95%. The circ was 10%. The OM was 10%. RCA was 95% occluded. Per Dr. Spear the EF appeared to be about 35%. The patient was found to have multivessel disease. He also had some mild pain during the catheterization and remains on a heparin drip, is currently painfree. PAST MEDICAL HISTORY Significant for: 1. Hypertension. 2. Anxiety. 3. Depression. 4. Obstructive sleep apnea. He does not use a C-PAP machine at home. 5. Erectile dysfunction. 6. Tobacco abuse. 7. Chronic pain. 8. He had rheumatic fever as a child. PAST SURGICAL HISTORY Surgeries include: 1. Tonsillectomy. 2. Transurethral resection. 3. Right knee surgery. FAMILY HISTORY Mother and father both . Mother from heart disease. Father had cancer. SOCIAL HISTORY The patient . Smoked for 30 years, three packs, quit for 10 years, then he has been smoking a pack for the last 10 years. No alcohol for the last 10 years. No illicit drugs. REVIEW OF SYSTEMS GENERAL: No night sweats, fever, heat or cold intolerance. SKIN: No psoriasis, itching or hives. HEENT: No blurred vision, hearing loss. RESPIRATORY: Positive for shortness of breath. CARDIOVASCULAR: No paroxysmal nocturnal dyspnea. No orthopnea. Chest pain as above in the history of present illness. GASTROINTESTINAL: No diarrhea, vomiting. GENITOURINARY: No burning, frequency, urgency CENTRAL NERVOUS SYSTEM: No history of TIA, CVA, seizure disorder. ENDOCRINOLOGY: Positive for glucose intolerance. Positive for hypothyroidism. PHYSICAL EXAMINATION VITAL SIGNS: On exam blood pressure 114/60, heart rate 65, afebrile. GENERAL: The patient is awake, alert, in no acute distress. HEENT: Head is normocephalic, atraumatic. Pupils equal and reactive. Oral mucosa pink, moist. NECK: Supple. No JVD. CARDIOVASCULAR: Heart sounds S1-S2, regular rate and rhythm. No rubs, murmurs or gallops. LUNGS: Clear to auscultation. No wheezes, rales or rhonchi. ABDOMEN: Soft, nontender. No masses or organomegaly. EXTREMITIES: No cyanosis, clubbing or edema. LABORATORY DATA Lab work shows hemoglobin of 13, hematocrit of 41, white cell count of 11, platelet count 242. Sodium 140, potassium 4.0, BUN of 12, creatinine 1.05. Troponin 3.28. Triglycerides 106, cholesterol 180, LDL 118, HDL of 40. TSH 1.31. IMAGING Chest x-ray is unremarkable. EKG shows a normal sinus rhythm with some nonspecific ST changes in lateral leads. ASSESSMENT AND PLAN 1. This is a 66-year-old male positive ruled in for non ST-elevation myocardial infarction. Underwent cardiac cath with multivessel disease. Cardiac films have been reviewed by Dr. Loretta Spear. Procedures, alternatives and risks have been discussed with the patient. Plan will be for surgery tomorrow afternoon. Pending also his hemoglobin A1c. 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 2. Hypertension. Controlled at this time. 3. He has had history of sleep apnea. Possible underlying narcolepsy. He apparently takes Ritalin and modafinil for daytime sleepiness. We will evaluate restarting those postsurgery. DICTATED BY: ALEXANDRIA Ramirez MD BOBBY Allen/JANESSA /3:34 PM /8:08 AM
[2016-09-21] MEDS: METOPROLOL TARTRATE 25 MG TAB PO SCH (08:38)
[2016-09-21] MEDS: SODIUM CHLORIDE 0.9% FLUSH 5 ML FLUSH IV FLUSH SCH ×2 (08:39→21:00)
--- NOTE | 2016-09-21 10:11 | PD.CARD.PN ---
Subjective Subjective Remarks No chest pain, no shortness of breath Objective Medications Current Medications Medications (Trade) Dose Ordered Sig/[place] Route Start Time Stop Time Status Last Admin Nitroglycerin 0.4 mg 0.4 mg Q5M PRN SL 09/20/16 02:15 09/20/16 16:58 Heparin Sodium/ Dextrose 250 ml @ 0 mls/hr TITRATE IV 09/20/16 02:15 09/21/16 05:52 (NS 1000 ml Inj) 1,000 ml @ 0 mls/hr Q10H IV 09/20/16 03:58 09/20/16 04:41 (Zofran Inj) 4 mg Q6H PRN IVP 09/20/16 04:00 (Dulcolax Supp) 10 mg DAILY PRN VA 09/20/16 04:00 (Tylenol) 650 mg Q6H PRN PO 09/20/16 04:00 09/21/16 02:23 ([place] 5-325 Mg) 1 tab Q4H PRN PO 09/20/16 04:00 (Morphine Inj) 2 mg Q3H PRN IV 09/20/16 04:00 (Ecotrin Ec) 81 mg DAILY PO 09/21/16 09:00 (Lopressor) 12.5 mg Q12HR PO 09/20/16 09:00 09/21/16 08:38 (NS Flush) 2 ml BID IV FLUSH 09/20/16 21:00 09/21/16 08:39 (NS Flush) 2 ml UNSCH PRN IV FLUSH 09/20/16 15:00 (Synthroid) 25 mcg DAILY@0600 PO 09/20/16 15:30 09/21/16 05:42 (Ativan Inj) 1 mg Q6H PRN IV PUSH 09/21/16 06:45 Vital Signs / I&O Vital Signs Date Time Temp Pulse Resp B/P Pulse Ox O2 Delivery O2 Flow Rate FiO2 09/21/16 06:00 80 09/21/16 05:00 66 09/21/16 04:00 61 09/21/16 03:00 99.0 69 20 106/67 95 09/21/16 03:00 68 09/21/16 02:00 68 09/21/16 01:00 64 09/21/16 00:00 63 09/20/16 23:00 98.5 73 20 115/73 93 09/20/16 23:00 64 09/20/16 22:00 74 09/20/16 21:00 70 09/20/16 20:00 72 09/20/16 19:00 66 09/20/16 19:00 98.3 72 18 111/66 98 09/20/16 18:00 65 09/20/16 17:00 69 09/20/16 16:00 63 09/20/16 15:00 57 09/20/16 15:00 57 09/20/16 15:00 98.3 64 18 105/65 95 09/20/16 14:00 62 09/20/16 13:00 63 09/20/16 12:00 60 09/20/16 11:00 57 09/20/16 11:00 97.8 64 16 94/57 95 I/O 09/20/16 09/20/16 09/20/16 09/21/16 09/21/16 09/21/16 07:00 15:00 23:00 07:00 15:00 23:00 Intake Total 841 ml 356 ml Balance 841 ml 356 ml Intake Oral 720 ml 240 ml IV Total 121 ml 116 ml # Voids 1 3 # Bowel Movements 1 Physical Exam GENERAL: NAD, AAOx3 SKIN: Warm and dry. HEAD: Atraumatic. Normocephalic. EYES: Pupils equal and round. No scleral icterus. No injection or drainage. ENT: No nasal bleeding or discharge. Mucous membranes pink and moist. NECK: Trachea midline. No JVD. CARDIOVASCULAR: Regular rate and rhythm. RESPIRATORY: No accessory muscle use. Clear to auscultation. Breath sounds equal bilaterally. GASTROINTESTINAL: Abdomen soft, non-tender, nondistended. Hepatic and splenic margins not palpable. MUSCULOSKELETAL: Extremities without clubbing, cyanosis, or edema. No obvious deformities. Right radial no hematoma, neurovascularly intact distally NEUROLOGICAL: Awake and alert. No obvious cranial nerve deficits. Motor grossly within normal limits. Five out of 5 muscle strength in the arms and legs. Normal speech. PSYCHIATRIC: Appropriate mood and affect; insight and judgment normal. Laboratory Laboratory Tests Test 09/20/16 09/20/16 09/20/16 09/20/16 14:17 15:38 16:25 21:43 Activated Partial 32.8 SEC 37.9 SEC Thromboplast Time Troponin I 3.28 NG/ML Blood Type A POSITIVE A POSITIVE Antibody Screen NEGATIVE Crossmatch Leukocyte-Reduced Red Blood Cells Blood Bank Comment Test 09/21/16 09/21/16 09/21/16 00:35 00:55 05:55 Nasal Screen MRSA (PCR) NEGATIVE Urine Color YELLOW Urine Turbidity CLEAR Urine pH 5.5 Urine Specific [place] 1.014 Urine Protein NEG mg/dL Urine Glucose (UA) NEG mg/dL Urine Ketones NEG mg/dL Urine Occult Blood NEG Urine Nitrite NEG Urine Bilirubin NEG Urine Urobilinogen LESS THAN 2.0 MG/DL Urine Leukocyte Esterase NEG Urine WBC LESS THAN 1 /hpf Urine Squamous Epithelial <1 /hpf Cells Urine Mucus FEW /lpf Microscopic Urinalysis Comment CULT NOT INDICATED White Blood Count 10.1 TH/MM3 Red Blood Count 4.47 MIL/MM3 Hemoglobin 13.6 GM/DL Hematocrit 39.5 % Mean Corpuscular Volume 88.4 FL Mean Corpuscular Hemoglobin 30.4 PG Mean Corpuscular Hemoglobin 34.4 % Concent Red Cell Distribution Width 13.8 % Platelet Count 216 TH/MM3 Mean Platelet Volume 8.9 FL Neutrophils (%) (Auto) 64.0 % Lymphocytes (%) (Auto) 24.6 % Monocytes (%) (Auto) 6.7 % Eosinophils (%) (Auto) 4.0 % Basophils (%) (Auto) 0.7 % Neutrophils # (Auto) 6.4 TH/MM3 Lymphocytes # (Auto) 2.5 TH/MM3 Monocytes # (Auto) 0.7 TH/MM3 Eosinophils # (Auto) 0.4 TH/MM3 Basophils # (Auto) 0.1 TH/MM3 CBC Comment DIFF FINAL Differential Comment Activated Partial 43.7 SEC Thromboplast Time Sodium Level 143 MEQ/L Potassium Level 4.1 MEQ/L Chloride Level 107 MEQ/L Carbon Dioxide Level 27.7 MEQ/L Anion Gap 8 MEQ/L Blood Urea Nitrogen 10 MG/DL Creatinine 1.00 MG/DL Estimat Glomerular Filtration 75 ML/MIN Rate Random Glucose 93 MG/DL Calcium Level 8.6 MG/DL Total Bilirubin 0.3 MG/DL Aspartate Amino Transf 45 U/L (AST/SGOT) Alanine Aminotransferase 27 U/L (ALT/SGPT) Alkaline Phosphatase 55 U/L Total Protein 6.1 GM/DL Albumin 3.0 GM/DL Assessment and Plan Problem List: (1) NSTEMI (non-ST elevated myocardial infarction) (2) Multi-vessel coronary artery stenosis (3) Tobacco abuse (4) Dehydration Assessment and Plan 1) MVCAD for CABG today 2) No chest pain, continue heparin, stop per CT surgery recommendation pre- operatively 3) EF 35-40% 4) Tobacco cessation 5) ASA/BB 6) Statin held due to history of myalgias Scott Roldan DO Sep 21, 2016 10:11
[2016-09-21] MEDS ORDERED: LACTATED RINGER'S 1000 ML INJ 2,000 ML IV ONE (11:18)
[2016-09-21] MEDS ORDERED: SODIUM CHLORID 0.9% 500 ML INJ 500 ML IV ONE (11:18)
[2016-09-21] MEDS ORDERED: NORMOSOL R INJ 2,000 ML IV ONE (11:18)
[2016-09-21 13:17] LABS: APTT (PATIENT) 44.3 SEC (24.3-30.1)
[2016-09-21] MEDS ORDERED: HEPARIN SODIUM - IV 10,000 UNITS/10 ML VIAL ONE ×2 (13:31→14:25)
[2016-09-21] MEDS ORDERED: HEPARIN SODIUM - SQ 10,000 UNITS/ML VIAL ONE (13:32)
[2016-09-21] MEDS ORDERED: VANCOMYCIN HCL 1000 MG VIAL ONE (13:32)
[2016-09-21] MEDS ORDERED: methylPREDNISolone SOD SUCC 125 MG/2 ML VIAL ONE (13:32)
[2016-09-21] MEDS ORDERED: CARDIOPLEGIC IRR 1,000 ML ONE (14:23)
[2016-09-21] MEDS ORDERED: POTASSIUM CHLORIDE 40 MEQ/20 ML VIAL ONE (14:24)
[2016-09-21] MEDS ORDERED: MANNITOL INJ 50 ML ONE (14:24)
[2016-09-21] MEDS ORDERED: ALBUMIN HUMAN 25% 12.5 GM/50 ML BAGP IV ONE (14:24)
[2016-09-21] MEDS ORDERED: SODIUM BICARBONATE 8.4% INJ 50 ML ONE (14:25)
[2016-09-21] MEDS ORDERED: MAGNESIUM SULFATE INJ 2 GM in SODIUM CHLORIDE 0.9% INJ 100 ML IV PRN ×4 (21:00)
[2016-09-21] MEDS ORDERED: INSULIN REGULAR (IV INFUSION) 100 UNITS in SODIUM CHLORIDE 0.9% INJ 99 ML IV SCH (21:00)
[2016-09-21] MEDS ORDERED: METOPROLOL TARTRATE 5 MG/5 ML VIAL IV PUSH PRN (21:00)
[2016-09-21] MEDS ORDERED: SODIUM CHLORIDE 0.9% FLUSH 5 ML FLUSH IV FLUSH PRN (21:00)
[2016-09-21] MEDS ORDERED: hydrALAZINE HCL 20 MG/ML VIAL IV PRN (21:00)
[2016-09-21] MEDS ORDERED: CALCIUM CHLORIDE INJ 1 GM in SODIUM CHLORIDE 0.9% INJ 100 ML IV PRN (21:00)
[2016-09-21] MEDS ORDERED: ACETAMINOPHEN 325 MG TAB PO PRN (21:00)
[2016-09-21] MEDS ORDERED: POTASSIUM CHLOR 20 MEQ PREMIX 100 ML IV PRN ×3 (21:00)
[2016-09-21] MEDS ORDERED: CLEVIDIPINE INJ 50 ML IV SCH (21:00)
[2016-09-21] MEDS ORDERED: POTASSIUM CHLORIDE 20 MEQ CONTROLLED RELEASE TAB PO PRN ×2 (21:00)
[2016-09-21] MEDS ORDERED: DEXTROSE 50% IN WATER 50 ML VIAL(D50) IV PUSH PRN (21:00)
[2016-09-21] MEDS ORDERED: ACETAMINOPHEN 650 MG SUPP RECTAL PRN (21:00)
[2016-09-21] MEDS ORDERED: CALCIUM CHLORIDE 10% 1 GRAM/10 ML VIAL IV PRN (21:00)
[2016-09-21] MEDS ORDERED: Post-op Orders (for Pharmacy) MISC OTHER ONE (21:00)
[2016-09-21] MEDS ORDERED: ONDANSETRON HCL 4 MG/2 ML VIAL IV PUSH PRN (21:00)
--- NOTE | 2016-09-21 21:08 | PD.OP ---
cc: Loretta Spear MD; Scott Roldan DO Operative Report Date of Surgery: Sep 21, 2016 Preoperative Diagnosis: (1) NSTEMI (non-ST elevated myocardial infarction) (2) Multi-vessel coronary artery stenosis Postoperative Diagnosis: same Procedure: CABG x 3 HERRERA to LAD - good SVG to D1 - good SVG to RCA - good EVH Anesthesia: Dr. Cooper Surgeon: Loretta Spear Inspector Machine Cut Glass(s): Alex Andujar Operation and Findings: The risks, benefits, complications, treatment options, and expected outcomes were discussed with the patient. The possibilities of reaction to medication, pulmonary aspiration, perforation of viscus, bleeding, recurrent infection, the need for additional procedures, failure to diagnose a condition, and creating a complication requiring transfusion or operation were discussed with the patient. The patient concurred with the proposed plan, giving informed consent. The site of surgery properly noted/marked. The patient was taken to Operating Room, identified as Sameer Redman and the procedure verified as CABG, EVH, SHANTAL. A Time Out was held and the above information confirmed. Standard monitoring lines and Bello catheter were placed. General anesthesia was induced. The patient was prepped and draped in a sterile fashion. A median sternotomy was performed and electrocautery was used to obtain hemostasis. The left internal mammary artery was procured as a pedicle from the 7th rib to the 1st rib in the usual manner. Simultaneously left greater saphenous vein was procured from the left leg using a minimally invasive endoscopic technique. The vein was prepared for anastomosis and the leg wound was irrigated and closed in 2 layers. The pericardium was opened and a pericardial sling was created using interrupted 0 silk sutures. The patient was heparinized for cardiopulmonary bypass and the distal mammary pedicle was instrumented for anastomosis. The heart was instrumented for cardiopulmonary bypass in the usual manner. Antegrade blood cardioplegia was employed. The patient was placed on cardiopulmonary bypass. An aortic cross-clamp was applied and the heart was arrested using cold blood cardioplegia. Antegrade cardioplegia was administered after he each anastomosis. After adequate arrest, the distal right coronary circulation was investigated and the distal RCA was opened with a Rincon blade and found to be a 1.5 millimeter good target. Saphenous vein was approximated to the RCA artery using a running 7 0 Prolene suture. The graft was measured for length and orientation and the proximal anastomosis was constructed to the ascending aorta using a running 5 0 Prolene suture after creating an aortotomy with a 5 millimeter punch. The 1st diagonal artery was then opened with a Rincon blade and found to be a 1.5 millimeter good target. Saphenous vein was approximated to the D1 artery using a running 7 0 Prolene suture. The graft was measured for length and orientation and was suspended from the pericardium. The distal LAD was opened with a Rincon blade and found to be a 1.5 millimeter good target. The left internal mammary artery was approximated to the LAD using a running 7 0 Prolene suture. The pedicle was attached to the epicardium using interrupted 5 0 silk suture. The patient was systemically rewarmed and received a hotshot dose of warm blood cardioplegia. The aorta was vented and the proximal anastomosis to the D1 graft was accomplished using a running 5 0 Prolene suture after creating an aortotomy was a 5 millimeter punch. The cross -clamp was removed and all proximal and distal anastomoses were examined for hemostasis. The patient was paced weaned from cardiopulmonary bypass. Protamine was given. There was no adverse reaction. Decannulation was carried out without incident. Wound was checked for hemostasis which was obtained using electrocautery. A 36 [place] mediastinal and 32 [place] left pleural chest were placed and secured to the skin with 0 silk suture. The sternum was closed with stainless steel wire. The fascia was closed with 1. PDS. The subcutaneous tissue was closed using a running 2-0 Vicryl suture. The skin was closed with 4- 0 Monocryl. Sterile dressings were placed. At the end of the operation, all sponge, instruments, and needle counts were correct. The patient was transferred to the CVICU in stable condition. Findings: Improved LV function after revascularization XC: 49 min CPB: 60 min Drains: mediastinal x 1 pleural x 1 Complications: none Disposition: to CVICU in stable condition Loretta Spear MD Sep 21, 2016 21:08
[2016-09-21] MEDS ORDERED: ceFAZolin INJ 1,000 MG VIAL ONE (21:11)
[2016-09-21] MEDS ORDERED: MIDAZOLAM HCL 5 MG/5 ML VIAL ONE (21:58)
[2016-09-21] MEDS ORDERED: fentaNYL CITRATE 1000 MCG/20 ML VIAL ONE (21:58)
[2016-09-21] MEDS: LACTATED RINGER'S 1000 ML INJ 500 ML IV PRN ×2 (22:00→22:30)
[2016-09-21] MEDS ORDERED: RESP: ALBUTEROL 2.5 MG/IPRATROPIUM 0.5 MG NEB (PRN) NEB (22:45)
[2016-09-21] MEDS ORDERED: RESP: RACEPINEPHRINE 2.25% 0.5 ML NEB NEB PRN (22:45)
--- NOTE | 2016-09-21 22:47 | RADRPT ---
EXAM DATE/TIME: 09/21/2016 22:06 [facility] COMPARISON: CHEST SINGLE AP, September 20, 2016, 2:16. INDICATIONS : Post CABG. MEDICAL HISTORY : Carcinoma, bladder. Hypertension. Skin cancer. SURGICAL HISTORY : None. ENCOUNTER: Initial ACUITY: 1 day PAIN SCORE: Non-responsive. LOCATION: Bilateral chest FINDINGS: Single view of the chest demonstrates postsurgical changes following CABG. There is no evidence of pneumothorax however patchy airspace disease is seen in both lungs especially on the left. Supportive devices which include an endotracheal tube, nasogastric tube, left subclavian central line and left thoracostomy tube are in good position. CONCLUSION: Poor lung aeration with patchy airspace disease status post CABG. No evidence of pneumothorax. Support devices are in good position. Jonathan Freeman MD on September 21, 2016 at 22:44 Board Certified Radiologist. This report was verified electronically.
[2016-09-21] MEDS: KETOROLAC TROMETHAMINE 30 MG/ML (IVP) VIAL IV PUSH PRN (23:00)
[2016-09-22] VITALS (20 sets, daily range): BP systolic 96–118; BP diastolic 53–82; PULSE 66–154; RESP 15–19; TEMP 97.5–98.1; O2SAT 94–98
[2016-09-22] MEDS: oxyCODONE/ACETAMINOPHEN 5 MG/325 MG TAB PO PRN ×6 (02:18→23:21)
[2016-09-22] MEDS: AMIODARONE 200 MG TAB PO SCH ×4 (02:18→20:36)
[2016-09-22] MEDS: ACETAMINOPHEN 1000 MG/100 ML VIAL IV SCH ×3 (03:05→15:40)
[2016-09-22] MEDS: RESP: ALBUTEROL 2.5 MG/IPRATROPIUM 0.5 MG NEB (SCH) NEB ×4 (04:43→21:12)
[2016-09-22 05:00] LABS: HEMATOCRIT 34.6 % (39.0-51.0); MEAN CORPUSCULAR HEMOGLOBIN 29.3 PG (27.0-34.0); MEAN CORPUSCULAR HGB CONC 32.9 % (32.0-36.0); PLATELET COUNT 160 TH/MM3 (150-450); RED BLOOD COUNT 3.88 MIL/MM3 (4.50-5.90); RED CELL DISTRIBUTION WIDTH 13.7 % (11.6-17.2); REVIEW FLAG FINAL
[2016-09-22 05:24] LABS: POTASSIUM 4.3 MEQ/L (3.5-5.1)
[2016-09-22] MEDS: PANTOPRAZOLE SOD 40 MG DELAYED RELEASE TAB PO SCH (05:29)
[2016-09-22] MEDS: LEVOTHYROXINE SODIUM 25 MCG TAB PO SCH (05:29)
--- NOTE | 2016-09-22 06:42 | RADRPT ---
EXAM DATE/TIME: 09/22/2016 05:31 [facility] COMPARISON: CHEST SINGLE AP, September 21, 2016, 22:06. INDICATIONS : Post CABG. Follow up. MEDICAL HISTORY : Cardiovascular disease. SURGICAL HISTORY : CABG. ENCOUNTER: Subsequent ACUITY: 3 days PAIN SCORE: 5/10 LOCATION: Bilateral chest FINDINGS: Basilar airspace disease and small effusions remain. There is a left-sided chest tube with tiny apica l pneumothorax. Previous nasogastric tube and endotracheal tube have been removed. Central chest tube also present. Left central line in superior vena cava. CONCLUSION: 1. Central and left sided chest tubes remain with tiny left pneumothorax. Minimal basilar airspace di sease. Interval extubation. Eric Bowie MD on September 22, 2016 at 6:39 Board Certified Radiologist. This report was verified electronically.
[2016-09-22] MEDS: KETOROLAC TROMETHAMINE 30 MG/ML (IVP) VIAL IV PUSH PRN ×2 (08:30→12:45)
[2016-09-22] MEDS ORDERED: BISACODYL 10 MG SUPP RECTAL PRN (09:00)
[2016-09-22] MEDS ORDERED: GLUCAGON 1 MG/ML VIAL OTHER PRN (09:00)
[2016-09-22] MEDS ORDERED: DEXTROSE 50% IN WATER 50 ML VIAL(D50) IV PRN (09:00)
[2016-09-22] MEDS ORDERED: SOD PHOSPHATE/SOD BIPHOSPHATE (ADULT) ENEMA 133ML RECTAL PRN (09:00)
[2016-09-22] MEDS ORDERED: ASPIRIN 81 MG CHEW TAB PO SCH (09:00)
--- NOTE | 2016-09-22 09:02 | PD.CAR.PN ---
CVT Progress Note CVT: POD #: 1 Subjective/Hospital Course: 66/ male admitted with chest pain / NSTEMI , multi vessel disease EF 35%, PMH: HTN, CORY ( does not use CPAP) , anxiety , daytime sleepiness, tobacco abuse surgery: CABG x 3, HERRERA to LAD - good, SVG to D1 - good, SVG to RCA - good 09/21 3800 crystalloid, cell saver 750, EBL 1400, urine 610 extubated 2300 last pm 09/22 up in chair, on 5 liter nasal cannula on nebs , aggressive pulm toileting c/o right eye being scratchy, no drainage, mild injection no pressors, off insulin gtt Objective: GENERAL: SKIN: Warm and dry./ prevena to chest , incision left leg HEAD: Normocephalic. EYES: No scleral icterus. No injection or drainage. NECK: Supple, trachea midline. No JVD or lymphadenopathy. CARDIOVASCULAR: Regular rate and rhythm without murmurs, gallops, + rubs. RESPIRATORY: Breath sounds equal bilaterally. diminished in bases No accessory muscle use. chest tube to wall suction / drained 520cc / 12 hrs GASTROINTESTINAL: Abdomen soft, non-tender, nondistended. MUSCULOSKELETAL: No cyanosis, or edema. BACK: Nontender without obvious deformity. No CVA tenderness. Vital Signs Date Time Temp Pulse Resp B/P Pulse Ox O2 Delivery O2 Flow Rate FiO2 09/22/16 07:33 97.7 67 18 100/56 95 09/22/16 07:32 67 09/22/16 07:31 95 Nasal Cannula 5.00 09/22/16 07:10 94 Nasal Cannula 5.00 09/22/16 03:35 99 Simple Mask 6.00 09/22/16 03:31 73 09/22/16 03:31 98.1 66 15 96/53 98 Arterial Line 09/21/16 23:44 97 Mask 6 09/21/16 23:17 52 09/21/16 23:17 98.1 75 15 94/56 96 97/63 09/21/16 23:00 95 Simple Mask 8.00 09/21/16 22:00 93 45 09/21/16 22:00 96 Mechanical Ventilator 50 09/21/16 21:45 97.5 80 13 113/60 97 100/58 09/21/16 16:01 104 09/21/16 15:01 98.1 103 18 105/73 97 09/21/16 15:00 113 09/21/16 14:00 92 09/21/16 13:01 88 09/21/16 12:00 92 09/21/16 11:45 98.5 90 16 105/66 95 09/21/16 11:00 94 09/21/16 10:00 92 09/21/16 09:00 76 Labs: Laboratory Tests Test 09/22/16 04:34 White Blood Count 15.0 TH/MM3 (4.0-11.0) Red Blood Count 3.88 MIL/MM3 (4.50-5.90) Hemoglobin 11.4 GM/DL (13.0-17.0) Hematocrit 34.6 % (39.0-51.0) Mean Corpuscular Volume 89.0 FL (80.0-100.0) Mean Corpuscular Hemoglobin 29.3 PG (27.0-34.0) Mean Corpuscular Hemoglobin 32.9 % Concent (32.0-36.0) Red Cell Distribution Width 13.7 % (11.6-17.2) Platelet Count 160 TH/MM3 (150-450) Mean Platelet Volume 9.2 FL (7.0-11.0) Sodium Level 144 MEQ/L (136-145) Potassium Level 4.3 MEQ/L (3.5-5.1) Chloride Level 112 MEQ/L (98-107) Carbon Dioxide Level 24.0 MEQ/L (21.0-32.0) Anion Gap 8 MEQ/L (5-15) Blood Urea Nitrogen 10 MG/DL (7-18) Creatinine 0.84 MG/DL (0.60-1.30) Estimat Glomerular Filtration 91 ML/MIN (>89) Rate Random Glucose 129 MG/DL (74-106) Calcium Level 7.4 MG/DL (8.5-10.1) Protein Corrected Calcium 9.0 MG/DL (8.5-10.1) Magnesium Level 2.0 MG/DL (1.5-2.5) Total Protein 4.3 GM/DL (6.4-8.2) Result Diagram: 09/22/16 0434 09/22/16433 Telemetry: NSR (1) NSTEMI (non-ST elevated myocardial infarction) (2) S/P CABG x 3 Plan: ASA, statin , amiodarone start BB this pm start virginie when BP improved transfer to stepdown pulm toileting toradol for + rub (3) Multi-vessel coronary artery stenosis (4) Tobacco abuse Plan: smoking cessation (5) Narcolepsy Plan: back on Shadia Harrell Sep 22, 2016 09:02
--- NOTE | 2016-09-22 09:15 | RSPPFT ---
DATE OF PROCEDURE: 09/20/16 COMMENTS: Spirometry with FVC of 2.6 predicted 4.2, FEV1 of 1.5 predicted 3.3, FEV1/FVC ratio 59% predicted 79%. IMPRESSION: On the basis of the above, patient has a severe obstructive lung defect.
[2016-09-22] MEDS: SODIUM CHLORIDE 0.9% FLUSH 5 ML FLUSH IV FLUSH SCH ×2 (09:28→21:00)
[2016-09-22] MEDS: MAGNESIUM HYDROXIDE SUSP 30 ML CUP PO SCH (09:28)
[2016-09-22] MEDS: DOCUSATE SODIUM 100 MG CAP PO SCH ×2 (09:29→20:34)
[2016-09-22] MEDS: ASPIRIN EC 81 MG TABEC PO SCH (09:29)
[2016-09-22] MEDS: VITAMIN B COMPLEX/VIT C TAB PO SCH (09:29)
[2016-09-22] MEDS: MULTIVITAMINS/MINERALS THERAPEUTIC TAB PO SCH (09:29)
--- NOTE | 2016-09-22 09:46 | EKG ---
Date Performed: 09/22/2016 Time Performed: 04:16:44 PTAGE: 66 years EKG: Sinus rhythm Prolonged QT interval Extensive T wave changes may be due to myocardial ischemia Abnormal ECG PREVIOUS TRACING : 09/20/2016 01.16 DOCTOR: Tobin Ibrahim Interpretating Date/Time 09/22/2016 09:46:14
[2016-09-22] MEDS: INSULIN ASPART SUPPLEMENTAL SCALE SQ SCH ×4 (10:00→22:00)
[2016-09-22] MEDS: ERYTHROMYCIN 0.5% OPTH OINT 3.5 GM TUBO RIGHT EYE SCH ×2 (11:41→20:36)
[2016-09-22] MEDS: METHYLPHENIDATE HCL 10 MG TAB PO SCH ×2 (11:41→16:57)
--- NOTE | 2016-09-22 12:21 | HHI.PR ---
Subjective Remarks up on chair good incentive spirometry effort Objective Vitals Vital Signs Date Time Temp Pulse Resp B/P Pulse Ox O2 Delivery O2 Flow Rate FiO2 09/22/16 09:12 18 09/22/16 09:12 18 09/22/16 07:33 97.7 67 18 100/56 95 09/22/16 07:32 67 09/22/16 07:31 95 Nasal Cannula 5.00 09/22/16 07:10 94 Nasal Cannula 5.00 09/22/16 03:35 99 Simple Mask 6.00 09/22/16 03:31 73 09/22/16 03:31 98.1 66 15 96/53 98 Arterial Line 09/21/16 23:44 97 Mask 6 09/21/16 23:44 97 Nasal Cannula 6.00 09/21/16 23:17 52 09/21/16 23:17 98.1 75 15 94/56 96 97/63 09/21/16 23:00 95 Simple Mask 8.00 09/21/16 22:00 93 45 09/21/16 22:00 96 Mechanical Ventilator 50 09/21/16 21:45 97.5 80 13 113/60 97 100/58 09/21/16 16:01 104 09/21/16 15:01 98.1 103 18 105/73 97 09/21/16 15:00 113 09/21/16 14:00 92 09/21/16 13:01 88 I/O 09/21/16 09/21/16 09/21/16 09/22/16 09/22/16 09/22/16 07:00 15:00 23:00 07:00 15:00 23:00 Intake Total 356 ml 200 ml 2090 ml Output Total 1520 ml Balance 356 ml 200 ml 570 ml Intake Oral 240 ml 0 ml 480 ml IV Total 116 ml 200 ml 1610 ml Output Urine Total 1000 ml Chest Tube Drainage Total 520 ml # Voids 3 2 # Bowel Movements 1 0 Result Diagram: 09/22/16 0434 09/22/16 0434 Imaging Last Impressions Chest X-Ray 09/22/16 0500 Signed Impressions: Service Date/Time: Thursday, September 22, 2016 05:31 - CONCLUSION: 1. Central and left sided chest tubes remain with tiny left pneumothorax. Minimal basilar airspace disease. Interval extubation. Eric Bowie MD Lower Extremity Ultrasound 09/20/16 0000 Signed Impressions: Service Date/Time: Tuesday, September 20, 2016 15:35 - CONCLUSION: Venous mapping as described above. Rafa French MD FACR Carotid Artery Ultrasound 09/20/16 0000 Signed Impressions: Service Date/Time: Tuesday, September 20, 2016 16:20 - CONCLUSION: Negative for Hemodynamically significant stenosis. Rafa French MD FACR Objective Remarks awake and alert, oriented x 3 anicteric chest wall- sternum- VAC dressing with CT in place lungs clear regular rhythm abdomen soft, nontender extremities no edema neuro exam- unremarkable Procedures 09/20- Cardia catheterization- Multivessel disease 09/21- CABG A/P Problem List: (1) NSTEMI (non-ST elevated myocardial infarction) ICD Code: I21.4 Status: Acute (2) Dehydration ICD Code: E86.0 Status: Acute (3) Tobacco abuse ICD Code: Z72.0 Status: Acute Assessment and Plan 66 years old male ACS- NSTEMI: multivessel disease S/P CABG 09/21 BB, ASA, amiodarone DC statins- per patient and gets- severe myalgias/muscle cramps and aches Ischemic Cardiomyopathy EF 35- 40 %. on BB BP - borderline. consider adding MARYANNE- post surgery when BP better Dehydration: GFR 70creatinine improved. Decrease IVF to KVO DM type 2- Hemoglobin A1C 6.3 per - A1C has been on that range but never addressed ff blood sugars post op, Insulin if needed for tight control History of ADHD- History of Sleep disorder - Narcolepsy On Ritalin 20 mg po tid- maintenance for years - give a dose now- with sips of water - restart post surgery Provigil 20 mg bid- start post op Ativan 1 mg q 6 IV prn for anxiety Tobacco Abuse: Counselled. Ativan prn if needed. No NicoDerm to avoid vasoconstriction. history of hypothyroidism continue Synthroid will need cardiac rehab post surgery Mehnaz Alcala MD Sep 22, 2016 12:21
--- NOTE | 2016-09-22 12:25 | PD.CARD.PN ---
Subjective Subjective Remarks No chest pain, no shortness of breath, ambulating Objective Medications Current Medications Medications (Trade) Dose Ordered Sig/[place] Route Start Time Stop Time Status Last Admin (Dulcolax Supp) 10 mg DAILY PRN [place] 09/20/16 04:00 (Ecotrin Ec) 81 mg DAILY PO 09/21/16 09:00 09/22/16 09:29 (Synthroid) 25 mcg DAILY@0600 PO 09/20/16 15:30 09/22/16 05:29 (NS Flush) 2 ml BID IV FLUSH 09/21/16 21:00 09/22/16 09:28 IV Flush 2 ml 2 ml UNSCH PRN IV FLUSH 09/21/16 21:00 (Ancef Inj/NS Inj) 100 ml @ 200 mls/hr Q8H IV 09/22/16 05:00 09/23/16 13:29 09/22/16 05:29 (Protonix) 40 mg DAILY@06 PO 09/22/16 06:00 09/22/16 05:29 (Cordarone) 400 mg Q8HR PO 09/21/16 22:00 09/22/16 05:29 (Tylenol) 650 mg Q4H PRN PO 09/21/16 21:00 (Ofirmev Inj) 1,000 mg Q6H IV 09/21/16 21:00 09/22/16 15:01 09/22/16 09:28 (Percocet 5-325 Mg) 1 tab Q3H PRN PO 09/21/16 21:00 09/22/16 08:30 (Toradol Inj) 15 mg Q6H PRN IV PUSH 09/21/16 21:00 09/23/16 20:59 09/22/16 08:30 (Zofran Inj) 4 mg Q6H PRN IV PUSH 09/21/16 21:00 09/22/16 04:37 (D50w (Vial) Inj) 25 ml UNSCH PRN IV PUSH 09/21/16 21:00 ([place] C) 1 tab DAILY PO 09/22/16 09:00 09/22/16 09:29 (Ritalin Ir) 20 mg TIDAC PO 09/22/16 08:00 09/22/16 11:41 (Colace) 100 mg BID PO 09/22/16 09:00 09/22/16 09:29 (Theragran M Tab) 1 tab DAILY PO 09/22/16 09:00 09/22/16 09:29 (Milk Of Magnesia Liq) 30 ml DAILY PO 09/22/16 09:00 09/22/16 09:28 (Miralax) 17 gm DAILY PO 09/23/16 09:00 (Senokot) 8.6 mg HS PO 09/22/16 21:00 (Fleets Enema (Adult)) 133 ml UNSCH PRN RECTAL 09/22/16 09:00 (Lopressor) 12.5 mg BID PO 09/22/16 21:00 (NovoLOG SUPPLEMENTAL SCALE) 1 02,06,10,14,18,22 SQ 09/22/16 10:00 (D50w (Vial) Inj) 25 ml UNSCH PRN IV 09/22/16 09:00 (Glucagon Inj) 1 mg UNSCH PRN OTHER 09/22/16 09:00 (Ilotycin 0.5% Opth Oint) 1 applic Q12HR RIGHT EYE 09/22/16 11:00 09/22/16 11:41 Vital Signs / I&O Vital Signs Date Time Temp Pulse Resp B/P Pulse Ox O2 Delivery O2 Flow Rate FiO2 09/22/16 09:12 18 09/22/16 09:12 18 09/22/16 07:33 97.7 67 18 100/56 95 09/22/16 07:32 67 09/22/16 07:31 95 Nasal Cannula 5.00 09/22/16 07:10 94 Nasal Cannula 5.00 09/22/16 03:35 99 Simple Mask 6.00 09/22/16 03:31 73 09/22/16 03:31 98.1 66 15 96/53 98 Arterial Line 09/21/16 23:44 97 Mask 6 09/21/16 23:44 97 Nasal Cannula 6.00 09/21/16 23:17 52 09/21/16 23:17 98.1 75 15 94/56 96 97/63 09/21/16 23:00 95 Simple Mask 8.00 09/21/16 22:00 93 45 09/21/16 22:00 96 Mechanical Ventilator 50 09/21/16 21:45 97.5 80 13 113/60 97 100/58 09/21/16 16:01 104 09/21/16 15:01 98.1 103 18 105/73 97 09/21/16 15:00 113 09/21/16 14:00 92 09/21/16 13:01 88 I/O 09/21/16 09/21/16 09/21/16 09/22/16 09/22/16 09/22/16 07:00 15:00 23:00 07:00 15:00 23:00 Intake Total 356 ml 200 ml 2090 ml Output Total 1520 ml Balance 356 ml 200 ml 570 ml Intake Oral 240 ml 0 ml 480 ml IV Total 116 ml 200 ml 1610 ml Output Urine Total 1000 ml Chest Tube Drainage Total 520 ml # Voids 3 2 # Bowel Movements 1 0 Physical Exam GENERAL: NAD, AAOx3 SKIN: Warm and dry. HEAD: Atraumatic. Normocephalic. EYES: Pupils equal and round. No scleral icterus. No injection or drainage. ENT: No nasal bleeding or discharge. Mucous membranes pink and moist. NECK: Trachea midline. No JVD. CARDIOVASCULAR: Regular rate and rhythm. RESPIRATORY: No accessory muscle use. Decreased breath sounds bilaterally GASTROINTESTINAL: Abdomen soft, non-tender, nondistended. Hepatic and splenic margins not palpable. MUSCULOSKELETAL: Extremities without clubbing, cyanosis, or edema. No obvious deformities. Right radial no hematoma, neurovascularly intact distally NEUROLOGICAL: Awake and alert. No obvious cranial nerve deficits. Motor grossly within normal limits. Five out of 5 muscle strength in the arms and legs. Normal speech. PSYCHIATRIC: Appropriate mood and affect; insight and judgment normal. Laboratory Laboratory Tests Test 09/21/16 09/22/16 12:23 04:34 Activated Partial 44.3 SEC Thromboplast Time White Blood Count 15.0 TH/MM3 Red Blood Count 3.88 MIL/MM3 Hemoglobin 11.4 GM/DL Hematocrit 34.6 % Mean Corpuscular Volume 89.0 FL Mean Corpuscular Hemoglobin 29.3 PG Mean Corpuscular Hemoglobin 32.9 % Concent Red Cell Distribution Width 13.7 % Platelet Count 160 TH/MM3 Mean Platelet Volume 9.2 FL Sodium Level 144 MEQ/L Potassium Level 4.3 MEQ/L Chloride Level 112 MEQ/L Carbon Dioxide Level 24.0 MEQ/L Anion Gap 8 MEQ/L Blood Urea Nitrogen 10 MG/DL Creatinine 0.84 MG/DL Estimat Glomerular Filtration 91 ML/MIN Rate Random Glucose 129 MG/DL Calcium Level 7.4 MG/DL Protein Corrected Calcium 9.0 MG/DL Magnesium Level 2.0 MG/DL Total Protein 4.3 GM/DL Assessment and Plan Problem List: (1) NSTEMI (non-ST elevated myocardial infarction) (2) S/P CABG x 3 (3) Multi-vessel coronary artery stenosis (4) Tobacco abuse (5) Narcolepsy Assessment and Plan 1) MVCAD s/p CABG (HERRERA to LAD, SVG to Diag, SVG to RCA) POD #1 2) EF 35-40% pre-operatively 3) Tobacco cessation 4) ASA/BB/Amio 5) Statin held due to history of myalgias 6) Questionable Afib pre-operatively, will attempt to find rhythm for documentation Scott Roldan DO Sep 22, 2016 12:25
[2016-09-22] MEDS: SENNOSIDES 8.6 MG TAB PO SCH (20:35)
[2016-09-22] MEDS: METOPROLOL TARTRATE 25 MG TAB PO SCH (20:36)
[2016-09-22] MEDS ORDERED: AMIODARONE 150 MG/D5W 97 ML BOLUS 10 MINUTES IV ONE ×2 (22:45)
[2016-09-23] VITALS (30 sets, daily range): BP systolic 90–110; BP diastolic 56–77; PULSE 69–131; RESP 17–20; TEMP 97.7–98.9; O2SAT 92–97
[2016-09-23] MEDS: oxyCODONE/ACETAMINOPHEN 5 MG/325 MG TAB PO PRN ×5 (03:34→21:36)
[2016-09-23] MEDS: INSULIN ASPART SUPPLEMENTAL SCALE SQ SCH ×5 (03:34→20:39)
[2016-09-23 05:02] LABS: AUTOMATED NEUTROPHIL # 12.8 TH/MM3 (1.8-7.7); BASOPHIL # 0.1 TH/MM3 (0-0.2); BASOPHIL % 0.4 % (0.0-2.0); EOSINOPHIL # 0.2 TH/MM3 (0-0.4); EOSINOPHIL % 1.2 % (0.0-4.0); HEMATOCRIT 34.7 % (39.0-51.0); HEMO FLAGS DIFF FINAL; LYMPH % 9.5 % (9.0-44.0); LYMPHOCYTE # 1.5 TH/MM3 (1.0-4.8); MEAN CELL VOLUME 88.6 FL (80.0-100.0); MEAN CORPUSCULAR HEMOGLOBIN 29.3 PG (27.0-34.0); MONO % 6.1 % (0.0-8.0); NEUT % 82.8 % (16.0-70.0); PLATELET COUNT 165 TH/MM3 (150-450); RED BLOOD COUNT 3.92 MIL/MM3 (4.50-5.90); RED CELL DISTRIBUTION WIDTH 13.7 % (11.6-17.2); WHITE BLOOD COUNT 15.5 TH/MM3 (4.0-11.0)
[2016-09-23 05:33] LABS: BICARBONATE 26.4 MEQ/L (21.0-32.0); MAGNESIUM 2.1 MG/DL (1.5-2.5); POTASSIUM 4.4 MEQ/L (3.5-5.1)
[2016-09-23 05:44] LABS: CALCIUM-PROTEIN CORRECTED 8.3 MG/DL (8.5-10.1)
[2016-09-23] MEDS: AMIODARONE 200 MG TAB PO SCH ×3 (05:54→20:28)
[2016-09-23] MEDS: PANTOPRAZOLE SOD 40 MG DELAYED RELEASE TAB PO SCH (05:54)
[2016-09-23] MEDS: LEVOTHYROXINE SODIUM 25 MCG TAB PO SCH (05:54)
[2016-09-23] MEDS: METHYLPHENIDATE HCL 10 MG TAB PO SCH ×2 (07:18→11:33)
[2016-09-23] MEDS: RESP: ALBUTEROL 2.5 MG/IPRATROPIUM 0.5 MG NEB (SCH) NEB ×3 (07:34→21:23)
--- NOTE | 2016-09-23 09:59 | PD.CARD.PN ---
Subjective Subjective Remarks No chest pain, some shortness of breath Bad night, unable to sleep Objective Medications Current Medications Medications (Trade) Dose Ordered Sig/[place] Route Start Time Stop Time Status Last Admin (Dulcolax Supp) 10 mg DAILY PRN TX 09/20/16 04:00 (Ecotrin Ec) 81 mg DAILY PO 09/21/16 09:00 09/22/16 09:29 (Synthroid) 25 mcg DAILY@0600 PO 09/20/16 15:30 09/23/16 05:54 (NS Flush) 2 ml BID IV FLUSH 09/21/16 21:00 09/22/16 21:00 IV Flush 2 ml 2 ml UNSCH PRN IV FLUSH 09/21/16 21:00 (Ancef Inj/NS Inj) 100 ml @ 200 mls/hr Q8H IV 09/22/16 05:00 09/23/16 13:29 09/23/16 03:35 (Protonix) 40 mg DAILY@06 PO 09/22/16 06:00 09/23/16 05:54 (Cordarone) 400 mg Q8HR PO 09/21/16 22:00 09/23/16 05:54 (Tylenol) 650 mg Q4H PRN PO 09/21/16 21:00 (Percocet 5-325 Mg) 1 tab Q3H PRN PO 09/21/16 21:00 09/23/16 07:18 (Toradol Inj) 15 mg Q6H PRN IV PUSH 09/21/16 21:00 09/23/16 20:59 09/22/16 12:45 (Zofran Inj) 4 mg Q6H PRN IV PUSH 09/21/16 21:00 09/22/16 04:37 (D50w (Vial) Inj) 25 ml UNSCH PRN IV PUSH 09/21/16 21:00 (Allbee C) 1 tab DAILY PO 09/22/16 09:00 09/22/16 09:29 (Ritalin Ir) 20 mg TIDAC PO 09/22/16 08:00 09/23/16 07:18 (Colace) 100 mg BID PO 09/22/16 09:00 09/22/16 20:34 (Theragran M Tab) 1 tab DAILY PO 09/22/16 09:00 09/22/16 09:29 (Milk Of Magnesia Liq) 30 ml DAILY PO 09/22/16 09:00 09/22/16 09:28 (Miralax) 17 gm DAILY PO 09/23/16 09:00 (Senokot) 8.6 mg HS PO 09/22/16 21:00 (Fleets Enema (Adult)) 133 ml UNSCH PRN RECTAL 09/22/16 09:00 (Lopressor) 12.5 mg BID PO 09/22/16 21:00 09/22/16 20:36 (NovoLOG SUPPLEMENTAL SCALE) 1 02,06,10,14,18,22 SQ 09/22/16 10:00 09/23/16 06:01 (D50w (Vial) Inj) 25 ml UNSCH PRN IV 09/22/16 09:00 (Glucagon Inj) 1 mg UNSCH PRN OTHER 09/22/16 09:00 (Ilotycin 0.5% Opth Oint) 1 applic Q12HR RIGHT EYE 09/22/16 11:00 09/22/16 20:36 Vital Signs / I&O Vital Signs Date Time Temp Pulse Resp B/P Pulse Ox O2 Delivery O2 Flow Rate FiO2 09/23/16 07:41 92 Nasal Cannula 3.00 09/23/16 07:33 117 09/23/16 07:33 95 Nasal Cannula 3.00 09/23/16 07:33 97.8 117 20 103/61 95 09/23/16 06:06 111 09/23/16 05:26 104 09/23/16 04:06 97.7 72 17 110/56 96 09/23/16 04:00 85 09/23/16 03:00 95 Nasal Cannula 3.00 09/23/16 03:00 93 09/23/16 02:13 93 09/23/16 01:35 98 09/23/16 00:00 104 09/22/16 23:23 97.5 123 19 117/62 96 09/22/16 23:00 124 09/22/16 23:00 96 Nasal Cannula 3.00 09/22/16 22:27 154 09/22/16 22:00 94 09/22/16 21:13 97 Nasal Cannula 4.00 09/22/16 21:00 84 09/22/16 20:00 89 09/22/16 19:00 98 Nasal Cannula 4.00 09/22/16 19:00 86 09/22/16 19:00 97.6 90 17 109/69 98 09/22/16 18:00 82 09/22/16 17:00 80 09/22/16 16:00 78 09/22/16 15:30 95 Nasal Cannula 4.00 09/22/16 15:24 98.0 67 18 110/82 95 09/22/16 15:00 90 09/22/16 14:00 80 09/22/16 12:00 97 Nasal Cannula 4.00 09/22/16 12:00 98.0 67 18 118/67 95 09/22/16 11:00 84 09/22/16 10:00 20 I/O 09/22/16 09/22/16 09/22/16 09/23/16 09/23/16 09/23/16 07:00 15:00 23:00 07:00 15:00 23:00 Intake Total 2090 ml 1075 ml 780 ml Output Total 1520 ml 540 ml 700 ml Balance 570 ml 535 ml 80 ml Intake Oral 480 ml 975 ml 480 ml IV Total 1610 ml 100 ml 300 ml Output Urine Total 1000 ml 300 ml 500 ml Chest Tube Drainage Total 520 ml 240 ml 200 ml # Bowel Movements 0 0 Physical Exam GENERAL: NAD, AAOx3 SKIN: Warm and dry. HEAD: Atraumatic. Normocephalic. EYES: Pupils equal and round. No scleral icterus. No injection or drainage. ENT: No nasal bleeding or discharge. Mucous membranes pink and moist. NECK: Trachea midline. No JVD. CARDIOVASCULAR: Irregularly irregular RESPIRATORY: No accessory muscle use. Decreased breath sounds bilaterally GASTROINTESTINAL: Abdomen soft, non-tender, nondistended. Hepatic and splenic margins not palpable. MUSCULOSKELETAL: Extremities without clubbing, cyanosis, or edema. No obvious deformities. Right radial no hematoma, neurovascularly intact distally NEUROLOGICAL: Awake and alert. No obvious cranial nerve deficits. Motor grossly within normal limits. Five out of 5 muscle strength in the arms and legs. Normal speech. PSYCHIATRIC: Appropriate mood and affect; insight and judgment normal. Laboratory Laboratory Tests Test 09/23/16 04:45 White Blood Count 15.5 TH/MM3 Red Blood Count 3.92 MIL/MM3 Hemoglobin 11.5 GM/DL Hematocrit 34.7 % Mean Corpuscular Volume 88.6 FL Mean Corpuscular Hemoglobin 29.3 PG Mean Corpuscular Hemoglobin 33.0 % Concent Red Cell Distribution Width 13.7 % Platelet Count 165 TH/MM3 Mean Platelet Volume 9.0 FL Neutrophils (%) (Auto) 82.8 % Lymphocytes (%) (Auto) 9.5 % Monocytes (%) (Auto) 6.1 % Eosinophils (%) (Auto) 1.2 % Basophils (%) (Auto) 0.4 % Neutrophils # (Auto) 12.8 TH/MM3 Lymphocytes # (Auto) 1.5 TH/MM3 Monocytes # (Auto) 0.9 TH/MM3 Eosinophils # (Auto) 0.2 TH/MM3 Basophils # (Auto) 0.1 TH/MM3 CBC Comment DIFF FINAL Differential Comment Sodium Level 138 MEQ/L Potassium Level 4.4 MEQ/L Chloride Level 104 MEQ/L Carbon Dioxide Level 26.4 MEQ/L Anion Gap 8 MEQ/L Blood Urea Nitrogen 10 MG/DL Creatinine 1.10 MG/DL Estimat Glomerular Filtration 67 ML/MIN Rate Random Glucose 135 MG/DL Calcium Level 7.3 MG/DL Protein Corrected Calcium 8.3 MG/DL Magnesium Level 2.1 MG/DL Total Protein 5.3 GM/DL Assessment and Plan Problem List: (1) NSTEMI (non-ST elevated myocardial infarction) (2) S/P CABG x 3 (3) Multi-vessel coronary artery stenosis (4) Tobacco abuse (5) Narcolepsy Assessment and Plan 1) MVCAD s/p CABG (HERRERA to LAD, SVG to Diag, SVG to RCA) POD #2 2) EF 35-40% pre-operatively 3) Tobacco cessation 4) ASA/BB/Amio 5) Statin held due to history of myalgias 6) Afib with RVR this morning.... will rebolus with Amio and start drip... attempt to increase BB 7) CHADSVASC2 = 4, will plan on placing on Eliquis 5mg BID once chest tubes removed Per the patient, felt heart fluttering before, may have had Afib in the past Scott Roldan DO Sep 23, 2016 09:59
[2016-09-23] MEDS ORDERED: AMIODARONE INJ 150 MG in DEXTROSE 5% IN WATER 100ML INJ 97 ML IV ONE ×2 (10:00)
[2016-09-23] MEDS: ASPIRIN EC 81 MG TABEC PO SCH (10:12)
[2016-09-23] MEDS: DOCUSATE SODIUM 100 MG CAP PO SCH ×2 (10:12→20:30)
[2016-09-23] MEDS: MULTIVITAMINS/MINERALS THERAPEUTIC TAB PO SCH (10:13)
[2016-09-23] MEDS: METOPROLOL TARTRATE 25 MG TAB PO SCH ×2 (10:13→20:28)
[2016-09-23] MEDS ORDERED: LORazepam 0.5 MG TAB PO PRN (10:15)
[2016-09-23] MEDS: ERYTHROMYCIN 0.5% OPTH OINT 3.5 GM TUBO RIGHT EYE SCH ×2 (10:15→20:35)
[2016-09-23] MEDS: AMIODARONE INJ 450 MG in DEXTROSE 5% IN WATE(EXCEL) INJ 241 ML IV SCH ×4 (11:34→21:27)
--- NOTE | 2016-09-23 12:27 | HHI.PR ---
Subjective Remarks up in chair + pain Objective Vitals Vital Signs Date Time Temp Pulse Resp B/P Pulse Ox O2 Delivery O2 Flow Rate FiO2 09/23/16 07:41 92 Nasal Cannula 3.00 09/23/16 07:33 117 09/23/16 07:33 95 Nasal Cannula 3.00 09/23/16 07:33 97.8 117 20 103/61 95 09/23/16 06:06 111 09/23/16 05:26 104 09/23/16 04:06 97.7 72 17 110/56 96 09/23/16 04:00 85 09/23/16 03:00 95 Nasal Cannula 3.00 09/23/16 03:00 93 09/23/16 02:13 93 09/23/16 01:35 98 09/23/16 00:00 104 09/22/16 23:23 97.5 123 19 117/62 96 09/22/16 23:00 124 09/22/16 23:00 96 Nasal Cannula 3.00 09/22/16 22:27 154 09/22/16 22:00 94 09/22/16 21:13 97 Nasal Cannula 4.00 09/22/16 21:00 84 09/22/16 20:00 89 09/22/16 19:00 98 Nasal Cannula 4.00 09/22/16 19:00 86 09/22/16 19:00 97.6 90 17 109/69 98 09/22/16 18:00 82 09/22/16 17:00 80 09/22/16 16:00 78 09/22/16 15:30 95 Nasal Cannula 4.00 09/22/16 15:24 98.0 67 18 110/82 95 09/22/16 15:00 90 09/22/16 14:00 80 I/O 09/22/16 09/22/16 09/22/16 09/23/16 09/23/16 09/23/16 07:00 15:00 23:00 07:00 15:00 23:00 Intake Total 2090 ml 1075 ml 780 ml Output Total 1520 ml 540 ml 700 ml Balance 570 ml 535 ml 80 ml Intake Oral 480 ml 975 ml 480 ml IV Total 1610 ml 100 ml 300 ml Output Urine Total 1000 ml 300 ml 500 ml Chest Tube Drainage Total 520 ml 240 ml 200 ml # Bowel Movements 0 0 Result Diagram: 09/23/165 09/23/165 Imaging Last Impressions Chest X-Ray 09/22/16 0500 Signed Impressions: Service Date/Time: Thursday, September 22, 2016 05:31 - CONCLUSION: 1. Central and left sided chest tubes remain with tiny left pneumothorax. Minimal basilar airspace disease. Interval extubation. Eric Bowie MD Lower Extremity Ultrasound 09/20/16 0000 Signed Impressions: Service Date/Time: Tuesday, September 20, 2016 15:35 - CONCLUSION: Venous mapping as described above. Rafa French MD FACR Carotid Artery Ultrasound 09/20/16 0000 Signed Impressions: Service Date/Time: Tuesday, September 20, 2016 16:20 - CONCLUSION: Negative for Hemodynamically significant stenosis. Rafa French MD FACR Objective Remarks awake and alert, oriented x 3 anicteric chest wall- sternum- VAC dressing with CT in place lungs clear irregularly irregular rhythm abdomen soft, nontender extremities + LE edema, sutures- dry neuro exam- unremarkable Procedures 09/20- Cardia catheterization- Multivessel disease 09/21- CABG A/P Problem List: (1) NSTEMI (non-ST elevated myocardial infarction) ICD Code: I21.4 Status: Acute (2) Dehydration ICD Code: E86.0 Status: Acute (3) Tobacco abuse ICD Code: Z72.0 Status: Acute Assessment and Plan 66 years old male ACS- NSTEMI: multivessel disease S/P CABG 09/21 Atrial fibrillation -chronic - went into RVR this am- now in 80s - bolus AMio BB, ASA, amiodarone- started on IV this am no statins- per patient and gets- severe myalgias/muscle cramps and aches Ischemic Cardiomyopathy EF 35- 40 %. on BB BP - borderline. consider adding MARYANNE- post surgery when BP better Dehydration: GFR 70 creatinine improved. voiding well DM type 2- Hemoglobin A1C 6.3 per - A1C has been on that range but never addressed ff blood sugars post op, Insulin if needed for tight control History of ADHD- History of Sleep disorder - Narcolepsy On Ritalin 20 mg po tid- maintenance for years - Provigil 20 mg bid- start post op Ativan 1 mg q 6 IV prn for anxiety Tobacco Abuse: Counselled. Ativan prn if needed. No NicoDerm to avoid vasoconstriction. history of hypothyroidism continue Synthroid will need cardiac rehab post surgery- [facility] consult Mehnaz Alcala MD Sep 23, 2016 12:26 pm
--- NOTE | 2016-09-23 12:52 | PD.CAR.PN ---
CVT Progress Note CVT: POD #: 2 Subjective/Hospital Course: 66/ male admitted with chest pain / NSTEMI , multi vessel disease EF 35%, PMH: HTN, CORY ( does not use CPAP) , anxiety , daytime sleepiness, tobacco abuse surgery: CABG x 3, HERRERA to LAD - good, SVG to D1 - good, SVG to RCA - good 09/21 3800 crystalloid, cell saver 750, EBL 1400, urine 610 extubated 2300 last pm 09/22 up in chair, on 5 liter nasal cannula on nebs , aggressive pulm toileting c/o right eye being scratchy, no drainage, mild injection no pressors, off insulin gtt 09/23 not sleeping well at night, very anxious hold ritalin went into afib RVR last pm, recieved amiodarone bolus remained in afib this am, additional bolus given, and amiodarone gtt started hold on diuresis ambulate, pulm toileting Objective: Vital Signs Date Time Temp Pulse Resp B/P Pulse Ox O2 Delivery O2 Flow Rate FiO2 09/23/16 07:41 92 Nasal Cannula 3.00 09/23/16 07:33 117 09/23/16 07:33 95 Nasal Cannula 3.00 09/23/16 07:33 97.8 117 20 103/61 95 09/23/16 06:06 111 09/23/16 05:26 104 09/23/16 04:06 97.7 72 17 110/56 96 09/23/16 04:00 85 09/23/16 03:00 95 Nasal Cannula 3.00 09/23/16 03:00 93 09/23/16 02:13 93 09/23/16 01:35 98 09/23/16 00:00 104 09/22/16 23:23 97.5 123 19 117/62 96 09/22/16 23:00 124 09/22/16 23:00 96 Nasal Cannula 3.00 09/22/16 22:27 154 09/22/16 22:00 94 09/22/16 21:13 97 Nasal Cannula 4.00 09/22/16 21:00 84 09/22/16 20:00 89 09/22/16 19:00 98 Nasal Cannula 4.00 09/22/16 19:00 86 09/22/16 19:00 97.6 90 17 109/69 98 09/22/16 18:00 82 09/22/16 17:00 80 09/22/16 16:00 78 09/22/16 15:30 95 Nasal Cannula 4.00 09/22/16 15:24 98.0 67 18 110/82 95 09/22/16 15:00 90 09/22/16 14:00 80 Labs: Laboratory Tests Test 09/23/16 04:45 White Blood Count 15.5 TH/MM3 (4.0-11.0) Red Blood Count 3.92 MIL/MM3 (4.50-5.90) Hemoglobin 11.5 GM/DL (13.0-17.0) Hematocrit 34.7 % (39.0-51.0) Mean Corpuscular Volume 88.6 FL (80.0-100.0) Mean Corpuscular Hemoglobin 29.3 PG (27.0-34.0) Mean Corpuscular Hemoglobin 33.0 % Concent (32.0-36.0) Red Cell Distribution Width 13.7 % (11.6-17.2) Platelet Count 165 TH/MM3 (150-450) Mean Platelet Volume 9.0 FL (7.0-11.0) Neutrophils (%) (Auto) 82.8 % (16.0-70.0) Lymphocytes (%) (Auto) 9.5 % (9.0-44.0) Monocytes (%) (Auto) 6.1 % (0.0-8.0) Eosinophils (%) (Auto) 1.2 % (0.0-4.0) Basophils (%) (Auto) 0.4 % (0.0-2.0) Neutrophils # (Auto) 12.8 TH/MM3 (1.8-7.7) Lymphocytes # (Auto) 1.5 TH/MM3 (1.0-4.8) Monocytes # (Auto) 0.9 TH/MM3 (0-0.9) Eosinophils # (Auto) 0.2 TH/MM3 (0-0.4) Basophils # (Auto) 0.1 TH/MM3 (0-0.2) CBC Comment DIFF FINAL Differential Comment Sodium Level 138 MEQ/L (136-145) Potassium Level 4.4 MEQ/L (3.5-5.1) Chloride Level 104 MEQ/L (98-107) Carbon Dioxide Level 26.4 MEQ/L (21.0-32.0) Anion Gap 8 MEQ/L (5-15) Blood Urea Nitrogen 10 MG/DL (7-18) Creatinine 1.10 MG/DL (0.60-1.30) Estimat Glomerular Filtration 67 ML/MIN (>89) Rate Random Glucose 135 MG/DL (74-106) Calcium Level 7.3 MG/DL (8.5-10.1) Protein Corrected Calcium 8.3 MG/DL (8.5-10.1) Magnesium Level 2.1 MG/DL (1.5-2.5) Total Protein 5.3 GM/DL (6.4-8.2) Result Diagram: 09/23/1644409/23/16444 (1) NSTEMI (non-ST elevated myocardial infarction) (2) S/P CABG x 3 Plan: ASA, statin , amiodarone BB start virginie when BP improved pulm toileting toradol for + rub (3) Multi-vessel coronary artery stenosis (4) Tobacco abuse Plan: smoking cessation (5) Narcolepsy Plan: hold ritalin for now, with new onset of afib (6) Anxiety Plan: add prn ativan (7) Afib Plan: on amiodarone cuba v score 4-5 will need NOAC when chest tubes out Shadia Guadarrama Sep 23, 2016 12:52
--- NOTE | 2016-09-23 12:56 | HHI.FF ---
Face to Face Verification Diagnosis: (1) Acute non-ST segment elevation myocardial infarction (2) Narcolepsy (3) Anxiety (4) Afib (5) S/P CABG x 3 Physical Therapy Order: Evaluate and Treat Home Health Nursing Order: Signs/symptoms of disease process Wound care and dressing changes Instructions: Incentive spirometry Q1 hr x 10, while awake, also use acapella device hourly whole awake Sternal Breast Bone Precautions: NO pushing or pulling, ( pt must use sternal pillow to support chest with all activities and with coughing ( takes up to 3 months breast bone to heal ) All females to wear sternal bra , launder as needed Daily incision care: ok to shower daily, no tub bath. Wash all incisions with liquid dial soap, clean wash cloth to each site, rinse and pat dry. Observe for any signs of infection, such as drainage which is dark yellow, phillips, green or foul smelling. Immediately report to the surgeon any drainage from the chest incision, or legs, and for any abnormal drainage from the chest tube sites. Notify surgeon if any temp >101.5 degrees F. When specialty dressing removed/ or if you do not have one, continue to shower daily as above, then rinse and pat incision dry and paint with betadine daily x 5 days. Allow steri strips to fall off if you have any. Avoid lotions, creams, salves, oils, etc. for the first month Please see attached forms for additional instructions regarding post Open Heart specialty wound vacuum dressings. ELZBIETA or Prevena , Dressing to be removed by Nursing staff on _09/28/[address] Spear patients , please obtain CBC, BMP, PA & Lat CXR in 2 weeks, results to Dr. Spear ( prescription will be given) ( ) (Tele: [phone]) , Valve replacement pts will need 2decho in 2 weeks with results to Dr. Spear . Please obtain 2 d echo at your commissioner of internal revenue office if possible F/U appointment: as per DC instructions: PCP in 2 weeks, CV surgeon 2 weeks, Trim Line Worker 3-4 weeks For any questions regarding incisions/ dressing / meds / post op care or above Symptoms, Tuesday 8am-5pm Heart & Vascular Surgery Office ( Dr. Sharma & Dr. Spear), After Hours / Nights (5pm -8am) Weekends and Holidays Please call [facility] Card[facility] ([facility]) Charge Nurse Heart and Vascular Surgery patients *Special attention to sternal dressing Mandatory frequency Assess and evaluation, 4 days in a row The next week 3X week 2 times a week for 4 weeks 1 time a week for 5 weeks Schedule Heart and Vascular patients for full 60 day certification period Initial visit Review Open Heart Surgery Discharge Instructions (Sternal precautions, Activity, Elastic hose, Incision care, Driving, Incentive spirometry, Smoking, [place], Work and other) Need Betadine to paint incision Medication reconciliation Importance of follow up care/ check on appointments Make calendar record temperature daily When to call [facility] nurse, review instructions, phone list Incentive Spirometry, demonstration Visit 1- Begin discharge instruction for patient family and/ or caregiver using teach back method- Signs and symptoms of infection Disease characteristics Medicines and side effects Foods and nutrition/ appetite Infection control/ hand washing/ hygiene Visit 2- Continue teaching Discharge instructions- include additional information on smoking cessation , sternal dressing (sternal vac) Visit 3- Continue teaching- Cough and deep breathing, incision monitoring. Choose my plate Visit 4- Continue teaching- Discuss limitations Discuss how they are feeling Discuss progress toward goals Remaining visits- continue teaching and monitoring I have seen patient Sameer Redman on 09/23/16. My clinical findings support the need for the requested home health care services because: Deconditioned w/ increased weakness I certify that my clinical findings support that this patient is homebound because: Post-op weakness Shadia Guadarrama Sep 23, 2016 12:56
[2016-09-23] MEDS: KETOROLAC TROMETHAMINE 30 MG/ML (IVP) VIAL IV PUSH PRN (13:54)
[2016-09-23] MEDS: SODIUM CHLORIDE 0.9% FLUSH 5 ML FLUSH IV FLUSH SCH ×2 (13:55→20:34)
[2016-09-23] MEDS: SENNOSIDES 8.6 MG TAB PO SCH (20:30)
[2016-09-23] MEDS: ATORVASTATIN 40 MG TAB PO SCH (20:33)
[2016-09-23] MEDS ORDERED: KETOROLAC TROMETHAMINE 30 MG/ML (IVP) VIAL IV PUSH PRN (23:30)
[2016-09-24] VITALS (33 sets, daily range): BP systolic 98–118; BP diastolic 55–70; PULSE 67–116; RESP 16–22; TEMP 97.4–98.3; O2SAT 92–95
[2016-09-24] MEDS: oxyCODONE/ACETAMINOPHEN 5 MG/325 MG TAB PO PRN ×4 (03:56→23:18)
[2016-09-24] MEDS: INSULIN ASPART SUPPLEMENTAL SCALE SQ SCH ×4 (06:14→23:07)
[2016-09-24] MEDS: PANTOPRAZOLE SOD 40 MG DELAYED RELEASE TAB PO SCH (06:14)
[2016-09-24] MEDS: AMIODARONE 200 MG TAB PO SCH ×2 (06:14→23:16)
[2016-09-24] MEDS: LEVOTHYROXINE SODIUM 25 MCG TAB PO SCH (06:14)
[2016-09-24] MEDS: RESP: ALBUTEROL 2.5 MG/IPRATROPIUM 0.5 MG NEB (SCH) NEB ×2 (07:39→13:22)
[2016-09-24] MEDS ORDERED: MAGNESIUM SULFATE 1 GM PREMIX 100 ML IV ONE (09:00)
[2016-09-24] MEDS: MAGNESIUM HYDROXIDE SUSP 30 ML CUP PO SCH ×2 (09:00→10:37)
[2016-09-24] MEDS: ERYTHROMYCIN 0.5% OPTH OINT 3.5 GM TUBO RIGHT EYE SCH ×2 (09:00→21:00)
--- NOTE | 2016-09-24 10:23 | PD.CAR.PN ---
CVT Progress Note CVT: POD #: 3 Subjective/Hospital Course: 66/ male admitted with chest pain / NSTEMI , multi vessel disease EF 35%, PMH: HTN, CORY ( does not use CPAP) , anxiety , daytime sleepiness, tobacco abuse surgery: CABG x 3, HERRERA to LAD - good, SVG to D1 - good, SVG to RCA - good 09/21 3800 crystalloid, cell saver 750, EBL 1400, urine 610 extubated 2300 last pm 09/22 up in chair, on 5 liter nasal cannula on nebs , aggressive pulm toileting c/o right eye being scratchy, no drainage, mild injection no pressors, off insulin gtt 09/23 not sleeping well at night, very anxious hold ritalin went into afib RVR last pm, recieved amiodarone bolus remained in afib this am, additional bolus given, and amiodarone gtt started hold on diuresis ambulate, pulm toileting 09/24 converted to NSR IV amiodarone off on BB, po amiodarone continue pulm toileting and gentle diuresis continue to ambulate Objective: GENERAL: feels better today SKIN: Warm and dry./ prevena dressing to chest , incision intact to leg HEAD: Normocephalic. EYES: No scleral icterus. No injection or drainage. NECK: Supple, trachea midline. No JVD or lymphadenopathy. CARDIOVASCULAR: Regular rate and rhythm without murmurs, gallops, or rubs. RESPIRATORY: few basilar crackles Breath sounds equal bilaterally. No accessory muscle use. GASTROINTESTINAL: Abdomen soft, non-tender, nondistended. MUSCULOSKELETAL: No cyanosis, or edema. BACK: Nontender without obvious deformity. No CVA tenderness. Vital Signs Date Time Temp Pulse Resp B/P Pulse Ox O2 Delivery O2 Flow Rate FiO2 09/24/16 06:33 69 09/24/16 06:20 74 09/24/16 06:00 71 09/24/16 05:00 71 09/24/16 04:42 72 09/24/16 03:50 97.4 73 18 98/58 94 09/24/16 03:50 94 Nasal Cannula 2.00 09/24/16 03:00 67 09/24/16 02:20 69 09/24/16 01:26 68 09/24/16 00:06 94 Nasal Cannula 2.00 09/24/16 00:00 71 09/23/16 23:45 98.2 70 17 101/61 94 09/23/16 23:00 82 09/23/16 22:00 72 09/23/16 21:23 93 21 09/23/16 21:00 82 09/23/16 20:00 92 09/23/16 19:15 94 Room Air 09/23/16 19:00 97.9 80 20 101/57 97 09/23/16 19:00 82 09/23/16 18:00 80 09/23/16 17:00 69 09/23/16 16:00 87 09/23/16 15:35 90 09/23/16 15:35 98.8 90 18 107/77 96 09/23/16 15:35 96 Nasal Cannula 2.00 09/23/16 15:00 84 09/23/16 14:00 72 09/23/16 13:00 85 09/23/16 12:00 95 09/23/16 11:30 87 09/23/16 11:30 96 Nasal Cannula 2.00 09/23/16 11:30 98.9 87 20 90/59 96 09/23/16 11:00 99 Result Diagram: 09/23/165 09/23/165 Telemetry: Afib>NSR (1) NSTEMI (non-ST elevated myocardial infarction) (2) S/P CABG x 3 Plan: ASA, statin , amiodarone /increase BB start virginie when BP improved pulm toileting (3) Multi-vessel coronary artery stenosis (4) Tobacco abuse Plan: smoking cessation (5) Narcolepsy Plan: decrease dose of Ritalin (6) Anxiety Plan: add prn ativan (7) Afib Plan: converted to NSR on amiodarone cuba v score 4-5 start Shadia Morales Sep 24, 2016 10:23
[2016-09-24] MEDS: POTASSIUM CHLORIDE 10 MEQ CAP PO SCH ×2 (10:30→23:08)
[2016-09-24] MEDS: FUROSEMIDE 20 MG/2 ML VIAL IV PUSH SCH ×2 (10:36→17:24)
[2016-09-24] MEDS: ASPIRIN EC 81 MG TABEC PO SCH (10:37)
[2016-09-24] MEDS: DOCUSATE SODIUM 100 MG CAP PO SCH ×2 (10:37→21:00)
[2016-09-24] MEDS: POLYETHYLENE GLYCOL 17 GM PKG PO SCH (10:39)
[2016-09-24] MEDS: SODIUM CHLORIDE 0.9% FLUSH 5 ML FLUSH IV FLUSH SCH ×2 (10:39→23:17)
[2016-09-24] MEDS: MULTIVITAMINS/MINERALS THERAPEUTIC TAB PO SCH (10:40)
[2016-09-24] MEDS: METHYLPHENIDATE HCL 10 MG TAB PO SCH ×2 (12:01→17:24)
--- NOTE | 2016-09-24 13:03 | PD.CARD.PN ---
Subjective Subjective Remarks Patient seen earlier No chest pain, no shortness of breath, better night Afib converted to NSR on Amio drip Objective Medications Current Medications Medications (Trade) Dose Ordered Sig/Gilmar Route Start Time Stop Time Status Last Admin (Dulcolax Supp) 10 mg DAILY PRN [place] 09/20/16 04:00 (Ecotrin Ec) 81 mg DAILY PO 09/21/16 09:00 09/24/16 10:37 (Synthroid) 25 mcg DAILY@0600 PO 09/20/16 15:30 09/24/16 06:14 (NS Flush) 2 ml BID IV FLUSH 09/21/16 21:00 09/24/16 10:39 (NS Flush) 2 ml UNSCH PRN IV FLUSH 09/21/16 21:00 (Protonix) 40 mg DAILY@06 PO 09/22/16 06:00 09/24/16 06:14 (Tylenol) 650 mg Q4H PRN PO 09/21/16 21:00 (Percocet 5-325 Mg) 1 tab Q3H PRN PO 09/21/16 21:00 09/24/16 12:06 (Zofran Inj) 4 mg Q6H PRN IV PUSH 09/21/16 21:00 09/22/16 04:37 (D50w (Vial) Inj) 25 ml UNSCH PRN IV PUSH 09/21/16 21:00 (Allbee C) 1 tab DAILY PO 09/22/16 09:00 09/22/16 09:29 (Colace) 100 mg BID PO 09/22/16 09:00 09/24/16 10:37 (Theragran M Tab) 1 tab DAILY PO 09/22/16 09:00 09/24/16 10:40 (Milk Of Magnesia Liq) 30 ml DAILY PO 09/22/16 09:00 09/24/16 10:37 (Miralax) 17 gm DAILY PO 09/23/16 09:00 09/24/16 10:39 (Senokot) 8.6 mg HS PO 09/22/16 21:00 09/23/16 20:30 (Fleets Enema (Adult)) 133 ml UNSCH PRN RECTAL 09/22/16 09:00 (D50w (Vial) Inj) 25 ml UNSCH PRN IV 09/22/16 09:00 (Glucagon Inj) 1 mg UNSCH PRN OTHER 09/22/16 09:00 (Ilotycin 0.5% Opth Oint) 1 applic Q12HR RIGHT EYE 09/22/16 11:00 09/22/16 20:36 (Ativan) 0.5 mg Q12H PRN PO 09/23/16 10:15 09/23/16 23:50 (NovoLOG SUPPLEMENTAL SCALE) 1 ACHS SQ 09/23/16 16:00 09/24/16 12:02 (Lipitor) 40 mg HS PO 09/23/16 21:00 (Lasix Inj) 20 mg BID@09,18 IV PUSH 09/24/16 09:00 09/24/16 10:36 (KCl) 10 meq BID PO 09/24/16 09:00 09/24/16 10:30 (Lopressor) 25 mg BID PO 09/24/16 21:00 (Eliquis) 5 mg BID PO 09/24/16 21:00 (Ritalin Ir) 10 mg TIDAC PO 09/24/16 12:00 09/24/16 12:01 (Cordarone) 400 mg Q12HR PO 09/24/16 21:00 Vital Signs / I&O Vital Signs Date Time Temp Pulse Resp B/P Pulse Ox O2 Delivery O2 Flow Rate FiO2 09/24/16 06:33 69 09/24/16 06:20 74 09/24/16 06:00 71 09/24/16 05:00 71 09/24/16 04:42 72 09/24/16 03:50 97.4 73 18 98/58 94 09/24/16 03:50 94 Nasal Cannula 2.00 09/24/16 03:00 67 09/24/16 02:20 69 09/24/16 01:26 68 09/24/16 00:06 94 Nasal Cannula 2.00 09/24/16 00:00 71 09/23/16 23:45 98.2 70 17 101/61 94 09/23/16 23:00 82 09/23/16 22:00 72 09/23/16 21:23 93 21 09/23/16 21:00 82 09/23/16 20:00 92 09/23/16 19:15 94 Room Air 09/23/16 19:00 97.9 80 20 101/57 97 09/23/16 19:00 82 09/23/16 18:00 80 09/23/16 17:00 69 09/23/16 16:00 87 09/23/16 15:35 90 09/23/16 15:35 98.8 90 18 107/77 96 09/23/16 15:35 96 Nasal Cannula 2.00 09/23/16 15:00 84 09/23/16 14:00 72 I/O 09/23/16 09/23/16 09/23/16 09/24/16 09/24/16 09/24/16 07:00 15:00 23:00 07:00 15:00 23:00 Intake Total 780 ml 1141 ml 680 ml Output Total 700 ml 1040 ml 1020 ml Balance 80 ml 101 ml -340 ml Intake Oral 480 ml 900 ml 480 ml IV Total 300 ml 241 ml 200 ml Output Urine Total 500 ml 950 ml 950 ml Chest Tube Drainage Total 200 ml 90 ml 70 ml # Bowel Movements 0 Physical Exam GENERAL: NAD, AAOx3 SKIN: Warm and dry. HEAD: Atraumatic. Normocephalic. EYES: Pupils equal and round. No scleral icterus. No injection or drainage. ENT: No nasal bleeding or discharge. Mucous membranes pink and moist. NECK: Trachea midline. No JVD. CARDIOVASCULAR: RRR, no murmurs noted RESPIRATORY: No accessory muscle use. Decreased breath sounds bilaterally GASTROINTESTINAL: Abdomen soft, non-tender, nondistended. Hepatic and splenic margins not palpable. MUSCULOSKELETAL: Extremities without clubbing, cyanosis, or edema. No obvious deformities. Right radial no hematoma, neurovascularly intact distally NEUROLOGICAL: Awake and alert. No obvious cranial nerve deficits. Motor grossly within normal limits. Five out of 5 muscle strength in the arms and legs. Normal speech. PSYCHIATRIC: Appropriate mood and affect; insight and judgment normal. Laboratory Laboratory Tests Test 09/22/16 09/23/16 04:34 04:45 White Blood Count 15.0 TH/MM3 15.5 TH/MM3 (4.0-11.0) (4.0-11.0) Red Blood Count 3.88 MIL/MM3 3.92 MIL/MM3 (4.50-5.90) (4.50-5.90) Hemoglobin 11.4 GM/DL 11.5 GM/DL (13.0-17.0) (13.0-17.0) Hematocrit 34.6 % 34.7 % (39.0-51.0) (39.0-51.0) Mean Corpuscular Volume 89.0 FL 88.6 FL (80.0-100.0) (80.0-100.0) Mean Corpuscular Hemoglobin 29.3 PG 29.3 PG (27.0-34.0) (27.0-34.0) Mean Corpuscular Hemoglobin 32.9 % 33.0 % Concent (32.0-36.0) (32.0-36.0) Red Cell Distribution Width 13.7 % 13.7 % (11.6-17.2) (11.6-17.2) Platelet Count 160 TH/MM3 165 TH/MM3 (150-450) (150-450) Mean Platelet Volume 9.2 FL 9.0 FL (7.0-11.0) (7.0-11.0) Sodium Level 144 MEQ/L 138 MEQ/L (136-145) (136-145) Potassium Level 4.3 MEQ/L 4.4 MEQ/L (3.5-5.1) (3.5-5.1) Chloride Level 112 MEQ/L 104 MEQ/L (98-107) (98-107) Carbon Dioxide Level 24.0 MEQ/L 26.4 MEQ/L (21.0-32.0) (21.0-32.0) Anion Gap 8 MEQ/L (5-15) 8 MEQ/L (5-15) Blood Urea Nitrogen 10 MG/DL (7-18) 10 MG/DL (7-18) Creatinine 0.84 MG/DL 1.10 MG/DL (0.60-1.30) (0.60-1.30) Estimat Glomerular Filtration 91 ML/MIN (>89) 67 ML/MIN (>89) Rate Random Glucose 129 MG/DL 135 MG/DL (74-106) (74-106) Calcium Level 7.4 MG/DL 7.3 MG/DL (8.5-10.1) (8.5-10.1) Protein Corrected Calcium 9.0 MG/DL 8.3 MG/DL (8.5-10.1) (8.5-10.1) Magnesium Level 2.0 MG/DL 2.1 MG/DL (1.5-2.5) (1.5-2.5) Total Protein 4.3 GM/DL 5.3 GM/DL (6.4-8.2) (6.4-8.2) Neutrophils (%) (Auto) 82.8 % (16.0-70.0) Lymphocytes (%) (Auto) 9.5 % (9.0-44.0) Monocytes (%) (Auto) 6.1 % (0.0-8.0) Eosinophils (%) (Auto) 1.2 % (0.0-4.0) Basophils (%) (Auto) 0.4 % (0.0-2.0) Neutrophils # (Auto) 12.8 TH/MM3 (1.8-7.7) Lymphocytes # (Auto) 1.5 TH/MM3 (1.0-4.8) Monocytes # (Auto) 0.9 TH/MM3 (0-0.9) Eosinophils # (Auto) 0.2 TH/MM3 (0-0.4) Basophils # (Auto) 0.1 TH/MM3 (0-0.2) CBC Comment DIFF FINAL Differential Comment Assessment and Plan Problem List: (1) NSTEMI (non-ST elevated myocardial infarction) (2) S/P CABG x 3 (3) Multi-vessel coronary artery stenosis (4) Tobacco abuse (5) Narcolepsy (6) Anxiety (7) Afib Assessment and Plan 1) MVCAD s/p CABG (HERRERA to LAD, SVG to Diag, SVG to RCA) POD #3 2) EF 35-40% pre-operatively 3) Tobacco cessation 4) ASA/BB/Amio 5) Statin held due to history of myalgias 6) Amio drip off, continue BB 7) CHADSVASC2 = 4, will plan on placing on Eliquis 5mg BID once chest tubes removed Per the patient, felt heart fluttering before, may have had Afib in the past Scott Roldan DO Sep 24, 2016 13:03
--- NOTE | 2016-09-24 14:17 | HHI.PR ---
Subjective Remarks very motivated with therapy and lifestyle modification Objective Vitals Vital Signs Date Time Temp Pulse Resp B/P Pulse Ox O2 Delivery O2 Flow Rate FiO2 09/24/16 13:47 95 21 09/24/16 11:30 72 09/24/16 11:30 94 Room Air 09/24/16 11:30 98.1 72 22 112/68 94 09/24/16 07:30 98.3 72 20 107/55 92 09/24/16 07:30 92 Room Air 09/24/16 07:30 72 09/24/16 06:33 69 09/24/16 06:20 74 09/24/16 06:00 71 09/24/16 05:00 71 09/24/16 04:42 72 09/24/16 03:50 97.4 73 18 98/58 94 09/24/16 03:50 94 Nasal Cannula 2.00 09/24/16 03:00 67 09/24/16 02:20 69 09/24/16 01:26 68 09/24/16 00:06 94 Nasal Cannula 2.00 09/24/16 00:00 71 09/23/16 23:45 98.2 70 17 101/61 94 09/23/16 23:00 82 09/23/16 22:00 72 09/23/16 21:23 93 21 09/23/16 21:00 82 09/23/16 20:00 92 09/23/16 19:15 94 Room Air 09/23/16 19:00 97.9 80 20 101/57 97 09/23/16 19:00 82 09/23/16 18:00 80 09/23/16 17:00 69 09/23/16 16:00 87 09/23/16 15:35 90 09/23/16 15:35 98.8 90 18 107/77 96 09/23/16 15:35 96 Nasal Cannula 2.00 09/23/16 15:00 84 I/O 09/23/16 09/23/16 09/23/16 09/24/16 09/24/16 09/24/16 07:00 15:00 23:00 07:00 15:00 23:00 Intake Total 780 ml 1141 ml 680 ml Output Total 700 ml 1040 ml 1020 ml Balance 80 ml 101 ml -340 ml Intake Oral 480 ml 900 ml 480 ml IV Total 300 ml 241 ml 200 ml Output Urine Total 500 ml 950 ml 950 ml Chest Tube Drainage Total 200 ml 90 ml 70 ml # Bowel Movements 0 Result Diagram: 09/23/16 0445 09/23/16 0445 Imaging Last Impressions Chest X-Ray 09/22/16 0500 Signed Impressions: Service Date/Time: Thursday, September 22, 2016 05:31 - CONCLUSION: 1. Central and left sided chest tubes remain with tiny left pneumothorax. Minimal basilar airspace disease. Interval extubation. Eric Bowie MD Lower Extremity Ultrasound 09/20/16 0000 Signed Impressions: Service Date/Time: Tuesday, September 20, 2016 15:35 - CONCLUSION: Venous mapping as described above. Rafa French MD FACR Carotid Artery Ultrasound 09/20/16 0000 Signed Impressions: Service Date/Time: Tuesday, September 20, 2016 16:20 - CONCLUSION: Negative for Hemodynamically significant stenosis. Rafa French MD FACR Objective Remarks awake and alert, oriented x 3 anicteric chest wall- sternum- Prevena dressing lungs clear in SR abdomen soft, nontender extremities + LE edema, sutures- dry neuro exam- unremarkable Procedures 09/20- Cardia catheterization- Multivessel disease 09/21- CABG A/P Problem List: (1) NSTEMI (non-ST elevated myocardial infarction) ICD Code: I21.4 Status: Acute (2) Dehydration ICD Code: E86.0 Status: Acute (3) Tobacco abuse ICD Code: Z72.0 Status: Acute Assessment and Plan 66 years old male ACS- NSTEMI: multivessel disease S/P CABG 09/21 Atrial fibrillation - now in SR BB, ASA, no statins- per patient and gets- severe myalgias/muscle cramps and aches Ischemic Cardiomyopathy EF 35- 40 %. on BB BP - borderline. consider adding MARYANNE- BP better ANNAMARIE: improved. voiding well DM type 2- Hemoglobin A1C 6.3 per - A1C has been on that range but never addressed History of ADHD- History of Sleep disorder - Narcolepsy On Ritalin 20 mg po tid- maintenance for years - Provigil 20 mg bid- start post op Ativan 1 mg q 6 IV prn for anxiety Tobacco Abuse: Counselled. Ativan prn if needed. No NicoDerm to avoid vasoconstriction. history of hypothyroidism continue Synthroid DC planning- [facility] Mehnaz Alcala MD Sep 24, 2016 14:17 Mehnaz Alcala MD Sep 24, 2016 14:17 Mehnaz Alcala MD Sep 24, 2016 14:17
[2016-09-24] MEDS ORDERED: AMIODARONE 200 MG TAB PO ONE (18:00)
[2016-09-24] MEDS ORDERED: METOPROLOL TARTRATE 25 MG TAB PO ONE (19:00)
[2016-09-24] MEDS: MAGNESIUM SULFATE 1 GM PREMIX 100 ML IV SCH ×2 (19:00→23:18)
[2016-09-24] MEDS: SENNOSIDES 8.6 MG TAB PO SCH (21:00)
[2016-09-24] MEDS ORDERED: AMIODARONE 200 MG TAB PO SCH ×2 (21:00)
[2016-09-24] MEDS: ATORVASTATIN 40 MG TAB PO SCH (23:08)
[2016-09-24] MEDS: APIXABAN 5 MG TABLET PO SCH (23:13)
[2016-09-24] MEDS: METOPROLOL TARTRATE 25 MG TAB PO SCH (23:19)
[2016-09-25] VITALS (27 sets, daily range): BP systolic 91–123; BP diastolic 53–73; PULSE 65–118; RESP 16–17; TEMP 97.8–98.2; O2SAT 82–96
[2016-09-25 04:27] LABS: BICARBONATE 28.9 MEQ/L (21.0-32.0); MAGNESIUM 2.3 MG/DL (1.5-2.5); POTASSIUM 3.8 MEQ/L (3.5-5.1)
[2016-09-25] MEDS: METHYLPHENIDATE HCL 10 MG TAB PO SCH ×3 (06:48→16:48)
[2016-09-25] MEDS: INSULIN ASPART SUPPLEMENTAL SCALE SQ SCH ×4 (06:48→21:08)
[2016-09-25] MEDS: LEVOTHYROXINE SODIUM 25 MCG TAB PO SCH (06:48)
[2016-09-25] MEDS: oxyCODONE/ACETAMINOPHEN 5 MG/325 MG TAB PO PRN ×5 (06:48→21:06)
[2016-09-25] MEDS: PANTOPRAZOLE SOD 40 MG DELAYED RELEASE TAB PO SCH (06:48)
--- NOTE | 2016-09-25 07:07 | RADRPT ---
EXAM DATE/TIME: 09/25/2016 03:42 [place] COMPARISON: CHEST SINGLE AP, September 22, 2016, 5:31. INDICATIONS : Shortness of breath, possible pulmonary disease. MEDICAL HISTORY : Cardiovascular disease. SURGICAL HISTORY : CABG. ENCOUNTER: Subsequent ACUITY: 1 week PAIN SCORE: 1/10 LOCATION: Bilateral chest FINDINGS: There has been removal of thoracostomy tubes. There is slight persistent basilar atelectasis bilatera lly. Cardiac contours are satisfactory. CONCLUSION: Thoracostomy tube removal without evidence of pneumothorax. Mild persistent bibasilar atelectasis Albin Arce MD on September 25, 2016 at 7:05 Board Certified Radiologist. This report was verified electronically.
[2016-09-25] MEDS: ASPIRIN EC 81 MG TABEC PO SCH (08:34)
[2016-09-25] MEDS: FUROSEMIDE 20 MG/2 ML VIAL IV PUSH SCH ×2 (08:34→16:49)
[2016-09-25] MEDS: MULTIVITAMINS/MINERALS THERAPEUTIC TAB PO SCH (08:34)
[2016-09-25] MEDS: APIXABAN 5 MG TABLET PO SCH ×2 (08:34→21:06)
[2016-09-25] MEDS: AMIODARONE 200 MG TAB PO SCH ×2 (08:34→21:05)
[2016-09-25] MEDS: POTASSIUM CHLORIDE 10 MEQ CAP PO SCH ×2 (08:34→21:06)
[2016-09-25] MEDS: SODIUM CHLORIDE 0.9% FLUSH 5 ML FLUSH IV FLUSH SCH ×2 (08:35→21:00)
[2016-09-25] MEDS: POLYETHYLENE GLYCOL 17 GM PKG PO SCH (08:36)
[2016-09-25] MEDS: METOPROLOL TARTRATE 25 MG TAB PO SCH ×2 (08:36→21:06)
[2016-09-25] MEDS: DOCUSATE SODIUM 100 MG CAP PO SCH ×2 (08:36→21:00)
[2016-09-25] MEDS: ERYTHROMYCIN 0.5% OPTH OINT 3.5 GM TUBO RIGHT EYE SCH ×2 (08:37→21:00)
[2016-09-25] MEDS: MAGNESIUM HYDROXIDE SUSP 30 ML CUP PO SCH (08:46)
[2016-09-25] MEDS: VITAMIN B COMPLEX/VIT C TAB PO SCH ×2 (09:00→11:52)
--- NOTE | 2016-09-25 11:04 | HHI.PR ---
Subjective Remarks no complains good po ambulating around gradually around his room very supportive Objective Vitals Vital Signs Date Time Temp Pulse Resp B/P Pulse Ox O2 Delivery O2 Flow Rate FiO2 09/25/16 10:00 66 09/25/16 09:00 79 09/25/16 08:00 74 09/25/16 07:30 94 Room Air 09/25/16 07:30 97.8 80 16 123/73 94 09/25/16 07:00 76 09/25/16 06:51 78 09/25/16 04:13 91 Room Air 09/25/16 04:12 98.1 67 16 93/53 91 09/25/16 04:00 67 09/25/16 03:00 65 09/25/16 02:00 65 09/25/16 01:23 97.8 79 16 110/63 96 09/25/16 01:00 68 09/25/16 00:00 73 09/24/16 23:01 96 Room Air 09/24/16 23:00 74 09/24/16 22:00 75 09/24/16 21:39 95 09/24/16 21:34 95 Room Air 09/24/16 21:29 97.8 79 16 115/70 95 09/24/16 21:00 80 09/24/16 20:44 116 09/24/16 19:00 116 09/24/16 18:00 96 09/24/16 17:15 111 09/24/16 17:00 101 09/24/16 16:00 80 09/24/16 15:45 97.9 83 18 118/62 94 09/24/16 15:45 94 Room Air 09/24/16 15:00 79 09/24/16 14:00 79 09/24/16 13:47 95 21 09/24/16 13:00 76 09/24/16 12:00 78 09/24/16 11:30 72 09/24/16 11:30 94 Room Air 09/24/16 11:30 98.1 72 22 112/68 94 I/O 09/24/16 09/24/16 09/24/16 09/25/16 09/25/16 09/25/16 07:00 15:00 23:00 07:00 15:00 23:00 Intake Total 680 ml 1000 ml 820 ml Output Total 1020 ml 1960 ml 500 ml Balance -340 ml -960 ml 320 ml Intake Oral 480 ml 900 ml 720 ml IV Total 200 ml 100 ml 100 ml Output Urine Total 950 ml 1900 ml 500 ml Chest Tube Drainage Total 70 ml 60 ml # Bowel Movements 1 1 Result Diagram: 09/23/16 0445 09/25/16 0338 Imaging Last Impressions Chest X-Ray 09/25/16 0600 Signed Impressions: Service Date/Time: Sunday, September 25, 2016 03:42 - CONCLUSION: Thoracostomy tube removal without evidence of pneumothorax. Mild persistent bibasilar atelectasis Albin Arce MD Lower Extremity Ultrasound 09/20/16 0000 Signed Impressions: Service Date/Time: Tuesday, September 20, 2016 15:35 - CONCLUSION: Venous mapping as described above. Rafa Frnech MD FACR Carotid Artery Ultrasound 09/20/16 0000 Signed Impressions: Service Date/Time: Tuesday, September 20, 2016 16:20 - CONCLUSION: Negative for Hemodynamically significant stenosis. Rafa French MD FACR Objective Remarks awake and alert, oriented x 3 anicteric chest wall- post op dressing in place lungs clear rhythm- sinus abdomen soft, nontender extremities + LE edema,- improved +, sutures- dry neuro exam- unremarkable Procedures 09/20- Cardia catheterization- Multivessel disease 09/21- CABG A/P Problem List: (1) NSTEMI (non-ST elevated myocardial infarction) ICD Code: I21.4 Status: Acute (2) Dehydration ICD Code: E86.0 Status: Acute (3) Tobacco abuse ICD Code: Z72.0 Status: Acute Assessment and Plan 66 years old male ACS- NSTEMI: multivessel disease S/P CABG 09/21 Transient Atrial fibrillation 09/24 - now in SR BB, ASA, amiodarone. Cardiology- Dr. Roldan ff no statins- per patient and gets- severe myalgias/muscle cramps and aches Ischemic Cardiomyopathy EF 35- 40 %. on BB BP - borderline. - BP better, consider MARYANNE in BPs better- currently SBP 90s on Lasix 20 mg q 12 ANNAMARIE: improved. voiding well Glucose Intolerance Hemoglobin A1C 6.3 per - A1C has been on that range but never addressed ff BS. ADA diet. dietary nutrition consult for counselling History of ADHD- History of Sleep disorder - Narcolepsy On Ritalin 20 mg po tid- maintenance for years - Provigil 20 mg bid- start post op Ativan 1 mg q 6 IV prn for anxiety Tobacco Abuse: Counselled. Ativan prn if needed. No NicoDerm to avoid vasoconstriction. history of hypothyroidism continue Synthroid DC planning- [facility] Mehnaz Alcala MD Sep 25, 2016 11:04
[2016-09-25] MEDS ORDERED: ONETKIT9 (11:14)
--- NOTE | 2016-09-25 12:41 | PD.CAR.PN ---
CVT Progress Note CVT: POD #: 4 Subjective/Hospital Course: 66/ male admitted with chest pain / NSTEMI , multi vessel disease EF 35%, PMH: HTN, CORY ( does not use CPAP) , anxiety , daytime sleepiness, tobacco abuse surgery: CABG x 3, HERRERA to LAD - good, SVG to D1 - good, SVG to RCA - good 09/21 3800 crystalloid, cell saver 750, EBL 1400, urine 610 extubated 2300 last pm 09/22 up in chair, on 5 liter nasal cannula on nebs , aggressive pulm toileting c/o right eye being scratchy, no drainage, mild injection no pressors, off insulin gtt 09/23 not sleeping well at night, very anxious hold ritalin went into afib RVR last pm, recieved amiodarone bolus remained in afib this am, additional bolus given, and amiodarone gtt started hold on diuresis ambulate, pulm toileting 09/24 converted to NSR IV amiodarone off on BB, po amiodarone continue pulm toileting and gentle diuresis continue to ambulate 09/25/16 No complaints One episode AFIB yesterday - in NSR now. his relates he had episodes of irregular heart rhythm in the past as well Objective: Vital Signs Date Time Temp Pulse Resp B/P Pulse Ox O2 Delivery O2 Flow Rate FiO2 09/25/16 12:00 68 09/25/16 11:00 Room Air 09/25/16 11:00 66 09/25/16 11:00 97.8 67 16 91/60 94 09/25/16 10:00 66 09/25/16 09:00 79 09/25/16 08:00 74 09/25/16 07:30 94 Room Air 09/25/16 07:30 97.8 80 16 123/73 94 09/25/16 07:00 76 09/25/16 06:51 78 09/25/16 04:13 91 Room Air 09/25/16 04:12 98.1 67 16 93/53 91 09/25/16 04:00 67 09/25/16 03:00 65 09/25/16 02:00 65 09/25/16 01:23 97.8 79 16 110/63 96 09/25/16 01:00 68 09/25/16 00:00 73 09/24/16 23:01 96 Room Air 09/24/16 23:00 74 09/24/16 22:00 75 09/24/16 21:39 95 09/24/16 21:34 95 Room Air 09/24/16 21:29 97.8 79 16 115/70 95 09/24/16 21:00 80 09/24/16 20:44 116 09/24/16 19:00 116 09/24/16 18:00 96 09/24/16 17:15 111 09/24/16 17:00 101 09/24/16 16:00 80 09/24/16 15:45 97.9 83 18 118/62 94 09/24/16 15:45 94 Room Air 09/24/16 15:00 79 09/24/16 14:00 79 09/24/16 13:47 95 21 09/24/16 13:00 76 Labs: Laboratory Tests Test 09/25/16 03:38 Sodium Level 138 MEQ/L (136-145) Potassium Level 3.8 MEQ/L (3.5-5.1) Chloride Level 102 MEQ/L (98-107) Carbon Dioxide Level 28.9 MEQ/L (21.0-32.0) Anion Gap 7 MEQ/L (5-15) Blood Urea Nitrogen 10 MG/DL (7-18) Creatinine 0.88 MG/DL (0.60-1.30) Estimat Glomerular Filtration 86 ML/MIN (>89) Rate Random Glucose 95 MG/DL (74-106) Calcium Level 7.8 MG/DL (8.5-10.1) Magnesium Level 2.3 MG/DL (1.5-2.5) Result Diagram: 09/23/16 0445 09/25/16 0338 Imaging: Last 24 hours Impressions Chest X-Ray 09/25/16 0600 Signed Impressions: Service Date/Time: Sunday, September 25, 2016 03:42 - CONCLUSION: Thoracostomy tube removal without evidence of pneumothorax. Mild persistent bibasilar atelectasis Albin Arce MD Cardiovascular: RRR Telemetry: NSR Pulmonary: CTA GI/: NABS, NT Incision: dry and intact Plan: D/C tomorrow (1) NSTEMI (non-ST elevated myocardial infarction) (2) S/P CABG x 3 (3) Multi-vessel coronary artery stenosis (4) Tobacco abuse (5) Narcolepsy (6) Anxiety (7) Afib Loretta Spear MD Sep 25, 2016 12:41
--- NOTE | 2016-09-25 15:49 | PD.CARD.PN ---
Subjective Subjective Remarks Feels well, no CV complaints Objective Medications Current Medications Medications (Trade) Dose Ordered Sig/[place] Route Start Time Stop Time Status Last Admin (Dulcolax Supp) 10 mg DAILY PRN [place] 09/20/16 04:00 (Ecotrin Ec) 81 mg DAILY PO 09/21/16 09:00 09/25/16 08:34 (Synthroid) 25 mcg DAILY@0600 PO 09/20/16 15:30 09/25/16 06:48 (NS Flush) 2 ml BID IV FLUSH 09/21/16 21:00 09/25/16 08:35 (NS Flush) 2 ml UNSCH PRN IV FLUSH 09/21/16 21:00 (Protonix) 40 mg DAILY@06 PO 09/22/16 06:00 09/25/16 06:48 (Tylenol) 650 mg Q4H PRN PO 09/21/16 21:00 (Percocet 5-325 Mg) 1 tab Q3H PRN PO 09/21/16 21:00 09/25/16 13:24 (Zofran Inj) 4 mg Q6H PRN IV PUSH 09/21/16 21:00 09/22/16 04:37 (D50w (Vial) Inj) 25 ml UNSCH PRN IV PUSH 09/21/16 21:00 (Allbee C) 1 tab DAILY PO 09/22/16 09:00 09/25/16 09:00 (Colace) 100 mg BID PO 09/22/16 09:00 09/24/16 10:37 (Theragran M Tab) 1 tab DAILY PO 09/22/16 09:00 09/25/16 08:34 (Milk Of Magnesia Liq) 30 ml DAILY PO 09/22/16 09:00 09/24/16 10:37 (Miralax) 17 gm DAILY PO 09/23/16 09:00 09/24/16 10:39 (Senokot) 8.6 mg HS PO 09/22/16 21:00 09/23/16 20:30 (Fleets Enema (Adult)) 133 ml UNSCH PRN RECTAL 09/22/16 09:00 (D50w (Vial) Inj) 25 ml UNSCH PRN IV 09/22/16 09:00 (Glucagon Inj) 1 mg UNSCH PRN OTHER 09/22/16 09:00 (Ilotycin 0.5% Opth Oint) 1 applic Q12HR RIGHT EYE 09/22/16 11:00 09/22/16 20:36 (Ativan) 0.5 mg Q12H PRN PO 09/23/16 10:15 09/23/16 23:50 (NovoLOG SUPPLEMENTAL SCALE) 1 ACHS SQ 09/23/16 16:00 09/24/16 23:07 (Lipitor) 40 mg HS PO 09/23/16 21:00 09/24/16 23:08 (Lasix Inj) 20 mg BID@09,18 IV PUSH 09/24/16 09:00 09/25/16 08:34 (KCl) 10 meq BID PO 09/24/16 09:00 09/25/16 08:34 (Lopressor) 25 mg BID PO 09/24/16 21:00 09/25/16 08:36 (Eliquis) 5 mg BID PO 09/24/16 21:00 09/25/16 08:34 (Ritalin Ir) 10 mg TIDAC PO 09/24/16 12:00 09/25/16 11:52 (Cordarone) 200 mg DAILY PO 10/02/16 09:00 (Cordarone) 400 mg Q12HR PO 09/24/16 21:00 09/27/16 20:59 09/25/16 08:34 Vital Signs / I&O Vital Signs Date Time Temp Pulse Resp B/P Pulse Ox O2 Delivery O2 Flow Rate FiO2 09/25/16 15:00 72 09/25/16 15:00 Room Air 09/25/16 14:00 70 09/25/16 13:00 72 09/25/16 12:00 68 09/25/16 11:00 Room Air 09/25/16 11:00 66 09/25/16 11:00 97.8 67 16 91/60 94 09/25/16 10:00 66 09/25/16 09:00 79 09/25/16 08:00 74 09/25/16 07:30 94 Room Air 09/25/16 07:30 97.8 80 16 123/73 94 09/25/16 07:00 76 09/25/16 06:51 78 09/25/16 04:13 91 Room Air 09/25/16 04:12 98.1 67 16 93/53 91 09/25/16 04:00 67 09/25/16 03:00 65 09/25/16 02:00 65 09/25/16 01:23 97.8 79 16 110/63 96 09/25/16 01:00 68 09/25/16 00:00 73 09/24/16 23:01 96 Room Air 09/24/16 23:00 74 09/24/16 22:00 75 09/24/16 21:39 95 09/24/16 21:34 95 Room Air 09/24/16 21:29 97.8 79 16 115/70 95 09/24/16 21:00 80 09/24/16 20:44 116 09/24/16 19:00 116 09/24/16 18:00 96 09/24/16 17:15 111 09/24/16 17:00 101 09/24/16 16:00 80 I/O 09/24/16 09/24/16 09/24/16 09/25/16 09/25/16 09/25/16 07:00 15:00 23:00 07:00 15:00 23:00 Intake Total 680 ml 1000 ml 820 ml Output Total 1020 ml 1960 ml 500 ml Balance -340 ml -960 ml 320 ml Intake Oral 480 ml 900 ml 720 ml IV Total 200 ml 100 ml 100 ml Output Urine Total 950 ml 1900 ml 500 ml Chest Tube Drainage Total 70 ml 60 ml # Bowel Movements 1 1 Physical Exam HEENT/neck: -JVD Lungs: CTA BL CV: RRR Ext: -CCE Laboratory Laboratory Tests Test 09/25/16 03:38 Sodium Level 138 MEQ/L Potassium Level 3.8 MEQ/L Chloride Level 102 MEQ/L Carbon Dioxide Level 28.9 MEQ/L Anion Gap 7 MEQ/L Blood Urea Nitrogen 10 MG/DL Creatinine 0.88 MG/DL Estimat Glomerular Filtration 86 ML/MIN Rate Random Glucose 95 MG/DL Calcium Level 7.8 MG/DL Magnesium Level 2.3 MG/DL Imaging Last Impressions Chest X-Ray 09/25/16 0600 Signed Impressions: Service Date/Time: Sunday, September 25, 2016 03:42 - CONCLUSION: Thoracostomy tube removal without evidence of pneumothorax. Mild persistent bibasilar atelectasis Albin Arce MD Lower Extremity Ultrasound 09/20/16 0000 Signed Impressions: Service Date/Time: Tuesday, September 20, 2016 15:35 - CONCLUSION: Venous mapping as described above. Rafa French MD FACR Carotid Artery Ultrasound 09/20/16 0000 Signed Impressions: Service Date/Time: Tuesday, September 20, 2016 16:20 - CONCLUSION: Negative for Hemodynamically significant stenosis. Rafa French MD FACR Assessment and Plan Problem List: (1) NSTEMI (non-ST elevated myocardial infarction) (2) S/P CABG x 3 (3) Multi-vessel coronary artery stenosis (4) Tobacco abuse (5) Narcolepsy (6) Anxiety (7) Afib Assessment and Plan 1) CAD stable s/p CABG 2) AF with conversion to NSR on Amiodarone. CT out and now on Eliquis per Dr. Roldan Discussed Condition With Keesha Thompson Sep 25, 2016 15:49
[2016-09-25] MEDS: ATORVASTATIN 40 MG TAB PO SCH (21:00)
[2016-09-25] MEDS: SENNOSIDES 8.6 MG TAB PO SCH (21:00)
[2016-09-26] VITALS (14 sets, daily range): BP systolic 105–112; BP diastolic 46–64; PULSE 63–76; RESP 18; TEMP 98.1–98.2; O2SAT 95–96
[2016-09-26] MEDS: oxyCODONE/ACETAMINOPHEN 5 MG/325 MG TAB PO PRN ×2 (03:33→07:56)
[2016-09-26] MEDS: LEVOTHYROXINE SODIUM 25 MCG TAB PO SCH (06:07)
[2016-09-26] MEDS: INSULIN ASPART SUPPLEMENTAL SCALE SQ SCH ×2 (06:07→11:00)
[2016-09-26] MEDS: PANTOPRAZOLE SOD 40 MG DELAYED RELEASE TAB PO SCH (06:08)
[2016-09-26 07:03] LABS: HEMATOCRIT 35.1 % (39.0-51.0); MEAN CELL VOLUME 89.4 FL (80.0-100.0); MEAN CORPUSCULAR HEMOGLOBIN 29.8 PG (27.0-34.0); MEAN CORPUSCULAR HGB CONC 33.3 % (32.0-36.0); PLATELET COUNT 243 TH/MM3 (150-450); RED BLOOD COUNT 3.92 MIL/MM3 (4.50-5.90); RED CELL DISTRIBUTION WIDTH 13.8 % (11.6-17.2); REVIEW FLAG FINAL; WHITE BLOOD COUNT 10.9 TH/MM3 (4.0-11.0)
[2016-09-26] MEDS: METHYLPHENIDATE HCL 10 MG TAB PO SCH (07:54)
[2016-09-26] MEDS: APIXABAN 5 MG TABLET PO SCH (07:54)
[2016-09-26] MEDS: AMIODARONE 200 MG TAB PO SCH (07:54)
[2016-09-26] MEDS: ASPIRIN EC 81 MG TABEC PO SCH (07:54)
[2016-09-26] MEDS: FUROSEMIDE 20 MG/2 ML VIAL IV PUSH SCH (07:56)
[2016-09-26] MEDS: SODIUM CHLORIDE 0.9% FLUSH 5 ML FLUSH IV FLUSH SCH (08:02)
[2016-09-26] MEDS: VITAMIN B COMPLEX/VIT C TAB PO SCH (08:06)
[2016-09-26] MEDS: DOCUSATE SODIUM 100 MG CAP PO SCH (08:06)
[2016-09-26] MEDS: POLYETHYLENE GLYCOL 17 GM PKG PO SCH (08:07)
[2016-09-26] MEDS: MAGNESIUM HYDROXIDE SUSP 30 ML CUP PO SCH (08:07)
[2016-09-26] MEDS: ERYTHROMYCIN 0.5% OPTH OINT 3.5 GM TUBO RIGHT EYE SCH (08:08)
[2016-09-26] MEDS: METOPROLOL TARTRATE 25 MG TAB PO SCH (08:16)
[2016-09-26] MEDS: MULTIVITAMINS/MINERALS THERAPEUTIC TAB PO SCH (08:16)
[2016-09-26] MEDS: POTASSIUM CHLORIDE 10 MEQ CAP PO SCH (08:16)
--- NOTE | 2016-09-26 08:38 | HHI.PR ---
Subjective Remarks No acute events overnight. Afebrile, vital signs stable. Patient with no complaints this morning. Denies chest pain, shortness of breath. Able to walk without difficulty. Objective Vitals Vital Signs Date Time Temp Pulse Resp B/P Pulse Ox O2 Delivery O2 Flow Rate FiO2 09/26/16 07:41 95 21 09/26/16 07:30 98.2 76 18 105/46 96 09/26/16 06:00 66 09/26/16 05:00 63 09/26/16 04:19 Room Air 09/26/16 04:18 98.1 66 112/64 96 09/26/16 04:00 64 09/26/16 03:00 68 09/26/16 02:00 64 09/26/16 01:00 68 09/26/16 00:00 66 09/25/16 23:00 Room Air 09/25/16 23:00 105 09/25/16 23:00 98.0 67 99/61 94 09/25/16 22:00 118 09/25/16 21:00 89 09/25/16 20:10 93 21 09/25/16 20:00 85 09/25/16 19:00 105 09/25/16 19:00 98.2 82 100/63 82 09/25/16 19:00 Room Air 09/25/16 18:00 87 09/25/16 17:00 68 09/25/16 16:00 71 09/25/16 15:00 72 09/25/16 15:00 Room Air 09/25/16 15:00 98.1 72 17 113/68 94 09/25/16 14:00 70 09/25/16 13:00 72 09/25/16 12:00 68 09/25/16 11:00 Room Air 09/25/16 11:00 66 09/25/16 11:00 97.8 67 16 91/60 94 09/25/16 10:00 66 09/25/16 09:00 79 I/O 09/25/16 09/25/16 09/25/16 09/26/16 09/26/16 09/26/16 07:00 15:00 23:00 07:00 15:00 23:00 Intake Total 820 ml 1000 ml 700 ml Output Total 500 ml 3150 ml 350 ml Balance 320 ml -2150 ml 350 ml Intake Oral 720 ml 1000 ml 700 ml IV Total 100 ml Output Urine Total 500 ml 3150 ml 350 ml # Voids 1 # Bowel Movements 1 1 Result Diagram: 09/26/16 0620 09/25/16 0338 Objective Remarks Gen.: No acute distress Head: Normocephalic. Atraumatic. EENT: Pupils equal round and reactive to light. Nose without drainage. Airway intact. Throat without injection. Cardiovascular: Regular rate and rhythm. No murmurs, rubs or gallops. Respiratory: Lungs clear to auscultation bilaterally. No wheezes or rhonchi. Abdomen: Soft, nontender, nondistended. No peritoneal signs. Musculoskeletal: No gross deformities. No edema. Skin: No obvious rashes or erythema. Neuro: Sensory and motor grossly intact. Cranial nerves II through XII grossly intact. Psych: Appropriate mood and affect Procedures 09/20- Cardia catheterization- Multivessel disease 09/21- CABG A/P Problem List: (1) NSTEMI (non-ST elevated myocardial infarction) ICD Code: I21.4 Status: Acute (2) Dehydration ICD Code: E86.0 Status: Acute (3) Tobacco abuse ICD Code: Z72.0 Status: Acute Assessment and Plan 66 year old male ACS- NSTEMI: multivessel disease S/P CABG 09/21 Transient Atrial fibrillation 09/24 - now in SR BB, ASA, amiodarone. Cardiology- Dr. Roldan ff no statins- per patient and gets- severe myalgias/muscle cramps and aches Ischemic Cardiomyopathy EF 35- 40 %. on BB BP - borderline. - BP better, consider MARYANNE in BPs better- currently SBP 110s on Lasix 20 mg q 12 ANNAMARIE: improved. voiding well Glucose Intolerance Hemoglobin A1C 6.3 per - BG followed by PCP History of ADHD- History of Sleep disorder - Narcolepsy On Ritalin 20 mg po tid- maintenance for years - Provigil 20 mg bid- start post op Ativan 1 mg q 6 IV prn for anxiety Tobacco Abuse: Counselled. Ativan prn if needed. No NicoDerm to avoid vasoconstriction. history of hypothyroidism continue Synthroid DC planning- [facility] - DC today Shari Bauman MD R3 Sep 26, 2016 08:38
[2016-09-26] MEDS ORDERED: AMIO200T PO (08:45)
[2016-09-26] MEDS ORDERED: ASPI81TA11 PO (08:45)
[2016-09-26] MEDS ORDERED: APIX5TAB PO (08:45)
[2016-09-26] MEDS ORDERED: OXYC1TAB63 PO (08:45)
[2016-09-26] MEDS ORDERED: FURO1TAB62 PO (08:45)
[2016-09-26] MEDS ORDERED: METO25TA3 PO (08:45)
--- NOTE | 2016-09-26 08:53 | HHI.DS ---
See discharge summary Discharge Summary Admission Date Sep 20, 2016 at 03:59 Discharge Date: Sep 26, 2016 Admitting Diagnosis Non STEMI (1) NSTEMI (non-ST elevated myocardial infarction) ICD Code: I21.4 Diagnosis: Principal (2) Dehydration ICD Code: E86.0 Diagnosis: Secondary (3) Tobacco abuse ICD Code: Z72.0 Diagnosis: Secondary Procedures 09/20- Cardia catheterization- Multivessel disease 09/21- CABG Brief History - From Admission This is a 66-year-old male with a PMH of HTN, Bladder CA, Anxiety, Depression, Sleep Apnea, Erectile Dysfunction, Tobacco Abuse and Chronic Back Pain who presented to the ER w/ complaints of epigastric/chest pain since approx 12pm yesterday. States felt pain was due to heartburn, pain initially improved w/ belching and sitting up straight, however pain progressively more severe throughout the day. Denies fever, chills, cough or SOB. On arrival, BP 132/87 , HR 76, O2 sat 96% on RA, Afebrile. CBC unremarkable except for WBC 11.2. Chemistry unremarkable except for GFR 70. Troponin 0.60. EKG with no acute ischemia. CXR with no acute findings. Dr. Argueta consulted by ER physician, recommended Heparin gtt and will eval in am. Currently chest pain free. Of note, pt w/ h/o Erectile Dysfunction on Viagra however last dose approx 2 months ago. CBC/BMP: 09/26/16 0620 09/25/16 0338 Significant Findings Laboratory Tests Test 09/25/16 09/26/16 03:38 06:20 Estimat Glomerular Filtration 86 ML/MIN (>89) Rate Calcium Level 7.8 MG/DL (8.5-10.1) Red Blood Count 3.92 MIL/MM3 (4.50-5.90) Hemoglobin 11.7 GM/DL (13.0-17.0) Hematocrit 35.1 % (39.0-51.0) Imaging Last Impressions Chest X-Ray 09/25/16 0600 Signed Impressions: Service Date/Time: Sunday, September 25, 2016 03:42 - CONCLUSION: Thoracostomy tube removal without evidence of pneumothorax. Mild persistent bibasilar atelectasis Albin Arce MD Lower Extremity Ultrasound 09/20/16 0000 Signed Impressions: Service Date/Time: Tuesday, September 20, 2016 15:35 - CONCLUSION: Venous mapping as described above. Rafa French MD FACR Carotid Artery Ultrasound 09/20/16 0000 Signed Impressions: Service Date/Time: Tuesday, September 20, 2016 16:20 - CONCLUSION: Negative for Hemodynamically significant stenosis. Rafa French MD FACR PE at Discharge Gen.: No acute distress Head: Normocephalic. Atraumatic. EENT: Pupils equal round and reactive to light. Nose without drainage. Airway intact. Throat without injection. Cardiovascular: Regular rate and rhythm. No murmurs, rubs or gallops. Respiratory: Lungs clear to auscultation bilaterally. No wheezes or rhonchi. Abdomen: Soft, nontender, nondistended. No peritoneal signs. Musculoskeletal: No gross deformities. No edema. Skin: No obvious rashes or erythema. Neuro: Sensory and motor grossly intact. Cranial nerves II through XII grossly intact. Psych: Appropriate mood and affect Hospital Course 66-year-old male admitted for NSTEMI, found to have LAD and RCA stenosis on cardiac catheterization. Referred for CABG, tolerated procedure well. Found to have paroxysmal atrial fibrillation for which he is being treated with amiodarone and metoprolol. Patient will follow-up with his PCP regarding elevated HbA1c of 6.4, cardiovascular surgery and cardiology. Pt Condition on Discharge: Good Discharge Disposition: Discharge Home Discharge Time: <= 30 minutes Discharge Instructions DIET: Follow Instructions for: Heart Healthy Diet Activities you can perform: See Additionl Instruction Other Activity Instructions: Avoid lifting more than 10 lbs Follow up Referrals: Cardiology PCP Follow-up Surgical New Orders: BASIC METABOLIC PROF - 2 Weeks CBC NO DIFF - 2 Weeks X-RAY CHEST PA & LAT - 2 Weeks New Medications: Furosemide (Lasix) 20 Mg Tab 20 MG PO BID #60 Ref 0 TAB Onetouch Ultra 2 Glucose System (Onetouch Ultra 2 Glucose System) 1 Kit Kit 1 KIT .ROUTE DIRECTED Blood Sugar Management #1 Ref 0 KIT Amiodarone (Amiodarone) 200 Mg Tab 400 MG PO Q12HR #60 TAB Apixaban (Eliquis) 5 Mg Tab 5 MG PO BID #[address] (Aspirin EC) 81 Mg Tabdr 81 MG PO DAILY #30 TAB Metoprolol Tartrate (Metoprolol Tartrate) 25 Mg Tab 25 MG PO BID #60 TAB Oxycodone-Acetaminophen (Oxycodone-Acetaminophen) 5-325 mg Tab 1 TAB PO Q3H PRN PAIN SCALE 1 TO 5 #90 TAB Continued Medications: B-Complex Vitamins (B Complex) 1 Cap 1 CAP PO DAILY Nutritional Supplement #30 Ref 0 CAP Levothyroxine (Levothyroxine) 25 Mcg Tab 25 MCG PO DAILY Thyroid #30 Ref 0 TAB Methylphenidate IR (Ritalin IR) 20 Mg Tab 20 MG PO TIDAC #90 Ref 0 TAB Modafinil (Modafinil) 100 Mg Tab 100 MG PO BID Manage Daytime Sleepiness Ref 0 TAB Sildenafil (Viagra) 100 Mg Tab 100 MG PO DAILY PRN ERECTILE DYSFUNCTION Ref 0 TAB Testosterone (Bulk) (Testosterone) 1 Pow Pow 10 MG INJ 2XWEEK Discontinued Medications: Atenolol (Atenolol) 25 Mg Tab 25 MG PO BID Blood Pressure Management #60 Ref 0 TAB Shari Bauman MD R3 Sep 26, 2016 08:53
[2016-09-26] MEDS ORDERED: POTA10CA PO (09:15)
[2016-09-26 10:03] LABS: BICARBONATE 30.6 MEQ/L (21.0-32.0); POTASSIUM 4.3 MEQ/L (3.5-5.1)
--- NOTE | 2016-09-26 10:23 | PD.CAR.PN ---
CVT Progress Note CVT: POD #: 5 Subjective/Hospital Course: 66/ male admitted with chest pain / NSTEMI , multi vessel disease EF 35%, PMH: HTN, CORY ( does not use CPAP) , anxiety , daytime sleepiness, tobacco abuse surgery: CABG x 3, HERRERA to LAD - good, SVG to D1 - good, SVG to RCA - good 09/21 3800 crystalloid, cell saver 750, EBL 1400, urine 610 extubated 2300 last pm 09/22 up in chair, on 5 liter nasal cannula on nebs , aggressive pulm toileting c/o right eye being scratchy, no drainage, mild injection no pressors, off insulin gtt 09/23 not sleeping well at night, very anxious hold ritalin went into afib RVR last pm, recieved amiodarone bolus remained in afib this am, additional bolus given, and amiodarone gtt started hold on diuresis ambulate, pulm toileting 09/24 converted to NSR IV amiodarone off on BB, po amiodarone continue pulm toileting and gentle diuresis continue to ambulate 09/25/16 No complaints One episode AFIB yesterday - in NSR now. his relates he had episodes of irregular heart rhythm in the past as well 09/26/16 No complaints. One episode of AFIB yesterday which was rate-controlled - spontaneously converted to NSR. He is anticoagulated on Eliquis. Objective: Vital Signs Date Time Temp Pulse Resp B/P Pulse Ox O2 Delivery O2 Flow Rate FiO2 09/26/16 09:15 18 09/26/16 09:00 75 09/26/16 08:00 75 09/26/16 07:41 95 21 09/26/16 07:30 Room Air 09/26/16 07:30 98.2 76 18 105/46 96 09/26/16 07:00 71 09/26/16 06:00 66 09/26/16 05:00 63 09/26/16 04:19 Room Air 09/26/16 04:18 98.1 66 112/64 96 09/26/16 04:00 64 09/26/16 03:00 68 09/26/16 02:00 64 09/26/16 01:00 68 09/26/16 00:00 66 09/25/16 23:00 Room Air 09/25/16 23:00 105 09/25/16 23:00 98.0 67 99/61 94 09/25/16 22:00 118 09/25/16 21:00 89 09/25/16 20:10 93 21 09/25/16 20:00 85 09/25/16 19:00 105 09/25/16 19:00 98.2 82 100/63 82 09/25/16 19:00 Room Air 09/25/16 18:00 87 09/25/16 17:00 68 09/25/16 16:00 71 09/25/16 15:00 72 09/25/16 15:00 Room Air 09/25/16 15:00 98.1 72 17 113/68 94 09/25/16 14:00 70 09/25/16 13:00 72 09/25/16 12:00 68 09/25/16 11:00 Room Air 09/25/16 11:00 66 09/25/16 11:00 97.8 67 16 91/60 94 Labs: Laboratory Tests Test 09/26/16 09/26/16 06:20 09:14 White Blood Count 10.9 TH/MM3 (4.0-11.0) Red Blood Count 3.92 MIL/MM3 (4.50-5.90) Hemoglobin 11.7 GM/DL (13.0-17.0) Hematocrit 35.1 % (39.0-51.0) Mean Corpuscular Volume 89.4 FL (80.0-100.0) Mean Corpuscular Hemoglobin 29.8 PG (27.0-34.0) Mean Corpuscular Hemoglobin 33.3 % Concent (32.0-36.0) Red Cell Distribution Width 13.8 % (11.6-17.2) Platelet Count 243 TH/MM3 (150-450) Mean Platelet Volume 9.3 FL (7.0-11.0) Sodium Level 137 MEQ/L (136-145) Potassium Level 4.3 MEQ/L (3.5-5.1) Chloride Level 98 MEQ/L (98-107) Carbon Dioxide Level 30.6 MEQ/L (21.0-32.0) Anion Gap 8 MEQ/L (5-15) Blood Urea Nitrogen 9 MG/DL (7-18) Creatinine 1.01 MG/DL (0.60-1.30) Estimat Glomerular Filtration 74 ML/MIN (>89) Rate Random Glucose 134 MG/DL (74-106) Calcium Level 8.1 MG/DL (8.5-10.1) Result Diagram: 09/26/1661909/26/1614 Cardiovascular: RRR Telemetry: NSR Pulmonary: CTA GI/: NABS, NT Incision: dry and intact Plan: D/C home today Needs appt. with cardiology - Dr. Roldan in 2 weeks for management of PSVT Follow-up with me in 3-4 weeks (1) NSTEMI (non-ST elevated myocardial infarction) (2) S/P CABG x 3 (3) Multi-vessel coronary artery stenosis (4) Tobacco abuse (5) Narcolepsy (6) Anxiety (7) Loretta Cameron MD Sep 26, 2016 10:23
[2016-09-26] MEDS ORDERED: OXYC1TAB36 PO ×2 (10:43→10:45)
[2016-10-02] MEDS ORDERED: AMIODARONE 200 MG TAB PO SCH (09:00)
[2017-01-13] MEDS ORDERED: VITA100T65 PO (13:23)
[2017-01-13] MEDS ORDERED: RITA10CA PO (13:23)
[2017-01-13] MEDS ORDERED: LEVO50TA4 PO (13:23)
[2017-01-13] MEDS ORDERED: METF500T4 PO (13:23)
[2017-01-13] MEDS ORDERED: MODA200T12 PO (13:23)
[2017-01-13] MEDS ORDERED: APIX2.5T PO (13:23)
[2017-01-13] MEDS ORDERED: MAGN400T2 PO (13:23)
[2017-01-13] MEDS ORDERED: VITA1000 PO (13:24)
[2017-01-13] MEDS ORDERED: CHOL5000 PO (13:24)
[2017-01-13] MEDS ORDERED: VIAG100T PO (14:13)
== END 2016-09-26 12:15 | disposition home or self-care (01) | DRG 234 ==
LOC: NEPE 01:09 → NEDA 03:59 → NEDH 07:43 → HCIS 08:53 → HCVR 09-21 21:40 → HCPC 09-22 09:56
PROVIDERS: ADMIT Family Medicine; ATTEND Family Medicine
PROC: B2111ZZ Fluoroscopy of Multiple Coronary Arteries using Low Osmolar Contrast (ICD-10-PCS; 2016-09-20)
PROC: 4A023N7 Measurement of Cardiac Sampling and Pressure, Left Heart, Percutaneous Approach (ICD-10-PCS; 2016-09-20)
PROC: 02100Z9 Bypass Coronary Artery, One Artery from Left Internal Mammary, Open Approach (ICD-10-PCS; 2016-09-21)
PROC: 06BQ0ZZ Excision of Left Saphenous Vein, Open Approach (ICD-10-PCS; 2016-09-21)
PROC: 5A1221Z Performance of Cardiac Output, Continuous (ICD-10-PCS; 2016-09-21)
PROC: B246ZZ4 Ultrasonography of Right and Left Heart, Transesophageal (ICD-10-PCS; 2016-09-21)
PROC: 021109W Bypass Coronary Artery, Two Arteries from Aorta with Autologous Venous Tissue, Open Approach (ICD-10-PCS; principal; 2016-09-21 15:58)
DX: I21.4 Non-ST elevation (NSTEMI) myocardial infarction (principal); N17.9 Acute kidney failure, unspecified; I48.0 Paroxysmal atrial fibrillation; I10 Essential (primary) hypertension; E86.0 Dehydration; E03.9 Hypothyroidism, unspecified; F32.9 Major depressive disorder, single episode, unspecified; I25.10 Atherosclerotic heart disease of native coronary artery without angina pectoris; M19.90 Unspecified osteoarthritis, unspecified site; N52.9 Male erectile dysfunction, unspecified; M54.5 Low back pain; G89.29 Other chronic pain; I25.5 Ischemic cardiomyopathy; G47.419 Narcolepsy without cataplexy; G47.33 Obstructive sleep apnea (adult) (pediatric); F41.9 Anxiety disorder, unspecified; F17.210 Nicotine dependence, cigarettes, uncomplicated; Z85.51 Personal history of malignant neoplasm of bladder; Z85.828 Personal history of other malignant neoplasm of skin; Z88.5 Allergy status to narcotic agent
CPT/HCPCS: 71010; 76937; 80048; 80053; 80061; 81001; 82550; 82552; 82948; 83036; 83735; 84155; 84443; 84484; 85025; 85027; 85610; 85730; 86850; 86900; 86901; 86920; 87641; 93005; 93306; 93318; 93454; 93880; 93970; 93998; 94002; 94010; 94150; 94640; 94664; 94667; 94668; 96365; 96374; 96375; C1730; C1731; C1732; C1759; C1766; C1769; C1893; C2630; C9113; C9399; J0131; J0282; J0690; J1644; J1815; J1885; J1940; J2150; J2250; J2370; J2405; J2720; J2930; J3010; J3370; J3475; J3480; J7030; J7040; J7060; J7120; P9047; Q9967

== ENCOUNTER 2016-12-12 23:57 | Emergency (ER) | payer OTHER ==
[~2016-12-12] VITALS: Ht 177.8 cm; Wt 77.0 kg
[~2016-12-12 23:57] MED LIST changes: -ACET325 PO; +AMIO200T PO; +APIX5TAB PO; +ASPI81TA11 PO; -ATEN-100 PO; +FURO1TAB62 PO; +LEVO25TA4 PO; -METHY5 PO; +METO25TA3 PO; +MODA100T9 PO; +ONETKIT9; +OXYC1TAB36 PO; +POTA10CA PO; -PROV100T3 PO; +RITA20TA PO; +TEST-55 INJ; +VITACAP7 PO
[2016-12-13 00:04] VITALS: BP 121/75; PULSE 70; RESP 15; TEMP 98.7; O2SAT 96
[2016-12-13] MEDS ORDERED: SODIUM CHLOR 0.9% 1000 ML INJ 1,000 ML IV ONE (00:30)
[2016-12-13 00:40] LABS: AUTOMATED NEUTROPHIL # 3.5 TH/MM3 (1.8-7.7); BASOPHIL # 0.1 TH/MM3 (0-0.2); BASOPHIL % 0.9 % (0.0-2.0); EOSINOPHIL # 0.3 TH/MM3 (0-0.4); EOSINOPHIL % 4.8 % (0.0-4.0); HEMATOCRIT 32.9 % (39.0-51.0); HEMO FLAGS DIFF FINAL; LYMPH % 27.5 % (9.0-44.0); LYMPHOCYTE # 1.8 TH/MM3 (1.0-4.8); MEAN CELL VOLUME 81.4 FL (80.0-100.0); MEAN CORPUSCULAR HEMOGLOBIN 25.9 PG (27.0-34.0); MEAN CORPUSCULAR HGB CONC 31.8 % (32.0-36.0); MONO % 11.4 % (0.0-8.0); NEUT % 55.4 % (16.0-70.0); PLATELET COUNT 169 TH/MM3 (150-450); RED BLOOD COUNT 4.04 MIL/MM3 (4.50-5.90); RED CELL DISTRIBUTION WIDTH 15.2 % (11.6-17.2); WHITE BLOOD COUNT 6.4 TH/MM3 (4.0-11.0)
--- NOTE | 2016-12-13 00:45 | RADRPT ---
EXAM DATE/TIME: 12/13/2016 00:28 [place] COMPARISON: CHEST SINGLE AP, September 25, 2016, 3:42. INDICATIONS : Hyperglycemia and confusion. MEDICAL HISTORY : Cardiovascular disease. Hypertension SURGICAL HISTORY : CABG. ENCOUNTER: Initial ACUITY: 1 day PAIN SCORE: 0/10 LOCATION: Bilateral chest FINDINGS: The lungs are clear without infiltrate, nodule, or mass. There is no appreciable pleural effusion fo r technique. Heart and mediastinum are unremarkable. There is evidence for prior median sternotomy. CONCLUSION: No acute cardiopulmonary disease. Odalis Doe MD on December 13, 2016 at 0:43 Board Certified Radiologist. This report was verified electronically.
[2016-12-13 00:49] LABS: APTT (PATIENT) 25.6 SEC (24.3-30.1); INTERNATIONAL NORMALIZED RATIO 0.9 RATIO
[2016-12-13 00:53] VITALS: BP 132/77; PULSE 70; RESP 15; O2SAT 95
[2016-12-13 00:56] LABS: BLOOD GAS BASE EXCESS 0.8 mmol/L (-2-2); BLOOD GAS CARBOXYHEMOGLOBIN 1.1 % (0-4); BLOOD GAS HCO3 25 mmol/L (22-26); BLOOD GAS METHEMOGLOBIN 0.2 % (0-2); BLOOD GAS O2 HGB SATURATION 94 % (90-100); BLOOD GAS OXYGEN CONTENT 15.2 Vol % (12.0-20.0); BLOOD GAS PCO2 42 mmHg (38-42); BLOOD GAS PO2 75 mmHG (61-120); BLOOD GAS TOTAL HGB 11.4 G/DL (12.0-16.0); CRITICAL VALUE NO; DRAW SITE RT RADIAL; FIO2 21 %; NUMBER OF ARTERIAL PUNCTURES 1; OXYGEN DEVICE ROOM AIR; STAT YES; TEMP CORR TO 98.6; ULNAR PULSE PRESENT
[2016-12-13] MEDS ORDERED: INSULIN HUMAN REGULAR 1,000 UNITS/10 ML VIAL SQ ONE ×2 (01:15→02:45)
[2016-12-13 01:28] LABS: BLOOD, URINE NEG (NEG); GLUCOSE,URINE 1000 mg/dL (NEG); KETONE, URINE NEG (NEG); NITRITE,URINE NEG (NEG); PH, URINE 6.5 (5.0-8.5); SQUAMOUS EPITHELIAL CELL URINE <1 /hpf (0-5); URINE COLOR LIGHT-YELLOW (YELLW/STRAW)
[2016-12-13 01:29] LABS: COMMENT (UR) CULT NOT INDICATED; CULTURE IF INDICATED CULT NOT INDICATED
[2016-12-13 02:02] LABS: ALKALINE PHOSPHATASE 99 U/L (45-117); ALT (GPT) 37 U/L (12-78); ANION GAP 8 MEQ/L (5-15); AST (GOT) 26 U/L (15-37); BICARBONATE 28.8 MEQ/L (21.0-32.0); BLOOD UREA NITROGEN 19 MG/DL (7-18); CHLORIDE 97 MEQ/L (98-107); GLOMERULAR FILTRATION RATE 57 ML/MIN (>89); MAGNESIUM 1.7 MG/DL (1.5-2.5); POTASSIUM 4.3 MEQ/L (3.5-5.1); SODIUM (NA) 134 MEQ/L (136-145); TOTAL BILIRUBIN ADULT 0.2 MG/DL (0.2-1.0)
[2016-12-13 02:03] LABS: CREATINE KINASE 87 U/L (39-308)
[2016-12-13] MEDS ORDERED: SODIUM CHLORID 0.9% 500 ML INJ 500 ML IV ONE (02:15)
[2016-12-13 02:30] VITALS: BP 111/69; PULSE 77; RESP 15; O2SAT 98
--- NOTE | 2016-12-13 03:00 | PD ---
HPI Chief Complaint: Diabetic Time Seen by Provider: 00:22 Travel History International Travel<30 days: No Contact w/Intl Traveler<30days: No Traveled to known affect area: No History of Present Illness HPI The patient is a 66 year old male who presents to the [facility] emergency department with a history of reportedly having generalized weakness with urinary frequency a began approximately a month ago. The patient reports that he went to his urologist and had a PSA done that was slightly elevated. He was started on antibiotic for a suspected prostate infection. He completed the ciprofloxacin yesterday. The patient's other recent history is, located by having coronary artery disease recently diagnosed after he had a non-STEMI, status post 2 vessel coronary artery bypass grafting in September 2016. The patient reports that over the last 2 days he continues to have urinary frequency but no urgency or dysuria. The patient reports that while he was in the hospital and being treated related to his myocardial infarction and subsequent coronary artery bypass grafting he developed episodes of hyperglycemia. He reports that he had been told in the past that he was prediabetic, however his last hemoglobin A1c was 6.3. The patient's significant other reports that his blood sugar went as high as into the 220s during his hospitalization and he did get subcutaneous insulin. When he was discharged home he was not sent home with any medications. His significant other reports that she did check his blood sugar this evening and it was in the 500s, that she brought him in for evaluation and treatment. The patient denies any recent fevers, cough, congestion, neck pain, chest pain, shortness of breath , abdominal pain, vomiting, diarrhea, or neurologic symptoms. [facility] Past Medical History Narrative Medical The patient's past medical history is significant for hypertension, history of bladder cancer, anxiety disorder, depression, history of sleep apnea, history of erectile dysfunction, history of tobacco abuse, chronic back pain, coronary artery disease status post non-STEMI, status post coronary artery bypass grafting, history of paroxysmal atrial fibrillation, history of an aortic aneurysm identified during his hospitalization, history of previously being diagnosed as prediabetic Arthritis: Yes Anxiety: Yes Depression: Yes Cancer: Yes (BLADDER, SKIN ) Cardiovascular Problems: Yes (ARRHYTHMIA) Diabetes: No Diminished Hearing: No Diverticulitis: Yes (LYMPHOCITIC CHOLITIS) Endocrine: No Gastrointestinal Disorders: Yes (LYMPHOCYTIC COLITIS) Glaucoma: No Genitourinary: No Hepatitis: No Hiatal Hernia: No Hypertension: Yes Immune Disorder: No Musculoskeletal: Yes (BACK PAIN) Neurologic: Yes (CHRONIC FATIGUE) Psychiatric: No Reproductive: No Respiratory: Yes (SLEEP APNEA (NO CPAP)) Thyroid Disease: No Past Surgical History Narrative Surgical The patient's past surgical history is significant for coronary artery bypass grafting 2 vessels, tonsillectomy, right knee surgery. AICD: No Coronary Artery Bypass Graft: Yes Genitourinary Surgery: Yes (CYSTO, TURBT) Joint Replacement: No Oral Surgery: Yes (TONSILLECTOMY) Pacemaker: No Tonsillectomy: Yes Other Surgery: Yes Social History Alcohol Use: Yes (OCCAS. BEER) Tobacco Use: Yes (quit aug 2016) Substance Use: No Allergies-Medications (Allergen,Severity, Reaction): Coded Allergies: Dilaudid (Unverified Adverse Reaction, Severe, N & V, 12/13/16) Atorvastatin (Verified Adverse Reaction, Intermediate, Cramping, 12/13/16) Pt. said he could not walk at home because the cramping was so bad after taking Atorvastatin. Reported Meds & Prescriptions Reported Meds & Active Scripts Active Metformin (Metformin HCl) 500 Mg Tab 500 Mg PO BIDPC With meals Metoprolol Tartrate 25 Mg Tab 25 Mg PO BID Aspirin EC (Aspirin) 81 Mg Tabdr 81 Mg PO DAILY Eliquis (Apixaban) 5 Mg Tab 5 Mg PO BID Onetouch Ultra 2 Glucose System (Device) 1 Kit Kit 1 Kit .ROUTE DIRECTED Reported Ritalin IR (Methylphenidate HCl) 20 Mg Tab 20 Mg PO TIDAC Modafinil 100 Mg Tab 100 Mg PO BID B Complex (B-Complex Vitamins) 1 Cap 1 Cap PO DAILY Levothyroxine (Levothyroxine Sodium) 25 Mcg Tab 25 Mcg PO DAILY Review of Systems Except as stated in HPI: all other systems reviewed are Neg General / Constitutional: No: Fever Eyes: No: Visual changes HENT: No: Headaches Cardiovascular: No: Chest Pain or Discomfort Respiratory: No: Shortness of Breath Gastrointestinal: No: Nausea, Vomiting, Diarrhea, Abdominal Pain Genitourinary: Positive: Frequency, No: Urgency, Dysuria Musculoskeletal: No: Pain Skin: No Rash Neurologic: Positive: Weakness (generalized weakness and fatigue), No: Focal Abnormalities, Coordination Problem, Change in Mentation, Slurred Speech, Sensory Disturbance Psychiatric: No: Depression Endocrine: No: Polydipsia Hematologic/Lymphatic: No: Easy Bruising Physical Exam Narrative General: The patient is a well-developed well-nourished male in no acute distress. Head and Neck exam: Head is normocephalic atraumatic. Eyes: EOMI, pupils are equal round and reactive to light. Nose: Midline septum with pink mucous membranes Mouth: Dentition unremarkable. Moist mucus membranes. Posterior oropharynx is not erythematous. No tonsillar hypertrophy. Uvula midline. Airway patent. Neck: No palpable lymphadenopathy. No nuchal rigidity. No thyromegaly. Cardiovascular: Regular rate and rhythm without murmurs, gallops, or rubs. Lungs: Clear to auscultation bilaterally. No wheezes, rhonchi, or rales. Abdomen: Soft, without tenderness to palpation in all 4 quadrants of the abdomen. No guarding, rebound, or rigidity. Normal bowel sounds are audible. No tenderness on palpation of McBurney's point. Extremities: No clubbing, cyanosis, or edema. 2+ pulses in all 4 extremities. No calf tenderness on palpation. Back: No costovertebral angle tenderness to palpation. Neurologic Exam: Grossly nonfocal. Skin Exam: No rash noted. Intact skin that is warm and dry. Data Data Last Documented VS Vital Signs Date Time Temp Pulse Resp B/P Pulse Ox O2 Delivery O2 Flow Rate FiO2 12/13/16 02:30 77 15 111/69 98 Room Air 12/13/16 00:04 98.7 Orders Electrocardiogram (12/13/16:) Complete Blood Count With Diff (12/13/16:) Comprehensive Metabolic Panel (12/13/16) Creatine Kinase (Cpk) (12/13/16:) Ckmb (Isoenzyme) Profile (12/13/16:) Troponin I (12/13/16:) B-Type Natriuretic Peptide (12/13/16:) Prothrombin Time / Inr (Pt) (12/13/16) Act Partial Throm Time (Ptt) (12/13/16:) Arterial Blood Gas (Abg) (12/13/16:) Lipase (12/13/16:) Urinalysis - C+S If Indicated (5/22/17 00:22) Magnesium (Mg) (12/13/16 00:22) Beta Hydroxybutyrate (Acetone) (12/13/16 00:22) Chest, Single Ap (12/13/16 00:22) Iv Access Insert/Monitor (12/13/16 00:22) Ecg Monitoring (12/13/16 00:22) Oximetry (12/13/16 00:22) Sodium Chlor 0.9% 1000 Ml Inj (Ns 1000 M (12/13/16 00:30) Insulin Human Regular Inj (Novolin R Inj (12/13/16 01:15) Sodium Chlorid 0.9% 500 Ml Inj (Ns 500 M (12/13/16 02:15) Insulin Human Regular Inj (Novolin R Inj (12/13/16 02:45) Labs Laboratory Tests Test 12/13/16 12/13/16 12/13/16 00:20 00:45 00:46 White Blood Count 6.4 TH/MM3 Red Blood Count 4.04 MIL/MM3 Hemoglobin 10.5 GM/DL Hematocrit 32.9 % Mean Corpuscular Volume 81.4 FL Mean Corpuscular Hemoglobin 25.9 PG Mean Corpuscular Hemoglobin 31.8 % Concent Red Cell Distribution Width 15.2 % Platelet Count 169 TH/MM3 Mean Platelet Volume 8.9 FL Neutrophils (%) (Auto) 55.4 % Lymphocytes (%) (Auto) 27.5 % Monocytes (%) (Auto) 11.4 % Eosinophils (%) (Auto) 4.8 % Basophils (%) (Auto) 0.9 % Neutrophils # (Auto) 3.5 TH/MM3 Lymphocytes # (Auto) 1.8 TH/MM3 Monocytes # (Auto) 0.7 TH/MM3 Eosinophils # (Auto) 0.3 TH/MM3 Basophils # (Auto) 0.1 TH/MM3 CBC Comment DIFF FINAL Differential Comment Prothrombin Time 10.0 SEC Prothromb Time International 0.9 RATIO Ratio Activated Partial 25.6 SEC Thromboplast Time Sodium Level 134 MEQ/L Potassium Level 4.3 MEQ/L Chloride Level 97 MEQ/L Carbon Dioxide Level 28.8 MEQ/L Anion Gap 8 MEQ/L Blood Urea Nitrogen 19 MG/DL Creatinine 1.27 MG/DL Estimat Glomerular Filtration 57 ML/MIN Rate Random Glucose 530 MG/DL Calcium Level 8.8 MG/DL Magnesium Level 1.7 MG/DL Total Bilirubin 0.2 MG/DL Aspartate Amino Transf 26 U/L (AST/SGOT) Alanine Aminotransferase 37 U/L (ALT/SGPT) Alkaline Phosphatase 99 U/L Total Creatine Kinase 87 U/L Troponin I LESS THAN 0.02 NG/ML B-Type Natriuretic Peptide 35 PG/ML Total Protein 6.3 GM/DL Albumin 2.9 GM/DL Lipase 121 U/L B-Hydroxybutyrate 0.10 MMOL/L Urine Color LIGHT-YELLOW Urine Turbidity CLEAR Urine pH 6.5 Urine Specific [place] 1.028 Urine Protein NEG mg/dL Urine Glucose (UA) 1000 mg/dL Urine Ketones NEG mg/dL Urine Occult Blood NEG Urine Nitrite NEG Urine Bilirubin NEG Urine Urobilinogen LESS THAN 2.0 MG/DL Urine Leukocyte Esterase NEG Urine WBC LESS THAN 1 /hpf Urine Squamous Epithelial <1 /hpf Cells Microscopic Urinalysis Comment CULT NOT INDICATED Blood Gas Puncture Site RT RADIAL Blood Gas Patient Temperature 98.6 Blood Gas HCO3 25 mmol/L Blood Gas Base Excess 0.8 mmol/L Blood Gas Oxygen Saturation 94 % Arterial Blood pH 7.40 Arterial Blood Partial 42 mmHg Pressure CO2 Arterial Blood Partial 75 mmHG Pressure O2 Arterial Blood Oxygen Content 15.2 Vol % Arterial Blood 1.1 % Carboxyhemoglobin Arterial Blood Methemoglobin 0.2 % Blood Gas Hemoglobin 11.4 G/DL Oxygen Delivery Device ROOM AIR Blood Gas Inspired Oxygen 21 % [facility] Medical Decision Making Medical Screen Exam Complete: Yes Emergency Medical Condition: Yes Medical Record Reviewed: Yes Interpretation(s) Last Impressions Chest X-Ray 12/13/16 0022 Signed Impressions: Service Date/Time: Tuesday, December 13, 2016 00:28 - CONCLUSION: No acute cardiopulmonary disease. Odalis Doe MD Differential Diagnosis DKA, versus hyperglycemia related to new onset type 2 diabetes mellitus, versus urinary tract infection Narrative Course During the course of the patients emergency department visit, the patients history, examination, and differential diagnosis were reviewed with the patient. The patient had IV access obtained and blood work sent for analysis. The patient was placed on a director of archives with oximetry and blood pressure monitoring. An EKG was done on arrival, the patient had an EKG that shows a sinus rhythm heart rate of 65, no acute ST segment elevation or depression, T waves inverted in V1. The patient was initially provided normal saline 1 L IV fluid bolus. The patient was given regular insulin 12 units subcutaneously 1 after DKA was ruled out. The patient was given an additional normal saline 500 mL bolus 1. The patient's blood sugar was rechecked and improved down to in the 400s the patient was given regular insulin 10 units subcutaneously 1. The patients laboratory studies were reviewed and remarkable for white count 6.4, hemoglobin 10.5, platelets 169 with 11.4 monocytes, CMP is remarkable for sodium of 134, chloride 97, BUN 19, glucose 530, CPK 87, troponin I less than 0.02, BNP 35, lipase 121, ABG shows a pH of 7.40, PCO2 42, PO2 75, base excess 0.8, bicarbonate 25, urinalysis shows 2000 glucose otherwise unremarkable. Beta hydroxybutyrate is 0.10 Radiology studies were reviewed and remarkable for a chest x-ray that shows no acute abnormality. The patient was offered admission due to the degree of hyperglycemia, however the patient reports that he was just recently in the hospital for a prolonged period of time and prefers to follow-up as an outpatient with his primary care physician in the morning. The patient was treated with multiple doses of insulin and the patient's blood sugar began to improve. The patient will be discharged home with a prescription for metformin with close follow-up with his primary care physician tomorrow. The patient is resting comfortably and feels better, is alert and in no distress. The patients results and examination findings were discussed with the patient. The repeat examination is unremarkable and benign. The history, exam, diagnostic testing, and current condition do not suggest any significant pathology to warrant further testing, continued ED treatment, admission, or surgical evaluation at this point. The vital signs have been stable. The patient does not have uncontrollable pain, intractable vomiting, or other significant symptoms. The patient's condition is stable and appropriate for discharge. The patient will pursue further outpatient evaluation with a primary care physician or other designated or consulting physician as indicated in the discharge instructions. The patient expressed understanding and was agreeable with this plan. Diagnosis Primary Impression: Hyperglycemia due to type 2 diabetes mellitus Qualified Code: E11.65 - Type 2 diabetes mellitus with hyperglycemia, without long-term current use of insulin Referrals: Primary Care Physician 1 day Patient Instructions: Diabetic Hyperglycemia (ED), General Instructions Med/Other Pt SpecificInfo: Prescription(s) given Scripts Metformin 500 Mg [id number] Mg PO BIDPC #60 TAB Ref 0 With meals Prov:Nadya Leong MD 12/13/16 Disposition: 01 DISCHARGE HOME Condition: Stable Nadya Leong MD December 13, 2016 03:00
[2016-12-13] MEDS ORDERED: METF500T PO (03:46)
--- NOTE | 2016-12-13 13:13 | EKG ---
Date Performed: 12/13/2016 Time Performed: 00:50:52 PTAGE: 66 years EKG: Sinus rhythm NORMAL ECG T-wave inversions markedly improved since prior tracing PREVIOUS TRACING : 09/22/2016 04.16 DOCTOR: Jimi Leong Interpretating Date/Time 12/13/2016 13:10:52
[2017-01-13] MEDS ORDERED: VITA100T65 PO (13:23)
[2017-01-13] MEDS ORDERED: MODA200T12 PO (13:23)
[2017-01-13] MEDS ORDERED: LEVO50TA4 PO (13:23)
[2017-01-13] MEDS ORDERED: APIX2.5T PO (13:23)
[2017-01-13] MEDS ORDERED: RITA10CA PO (13:23)
[2017-01-13] MEDS ORDERED: METF500T4 PO (13:23)
[2017-01-13] MEDS ORDERED: MAGN400T2 PO (13:23)
[2017-01-13] MEDS ORDERED: VITA1000 PO (13:24)
[2017-01-13] MEDS ORDERED: CHOL5000 PO (13:24)
[2017-01-13] MEDS ORDERED: VIAG100T PO (14:13)
== END 2016-12-13 04:31 | disposition home or self-care (01) ==
LOC: NEPE 23:57
DX: R73.9 Hyperglycemia, unspecified (principal); R73.03 Prediabetes; R53.1 Weakness; R35.0 Frequency of micturition; I10 Essential (primary) hypertension; G47.30 Sleep apnea, unspecified; I25.2 Old myocardial infarction; Z95.1 Presence of aortocoronary bypass graft; I48.0 Paroxysmal atrial fibrillation; Z79.01 Long term (current) use of anticoagulants; Z79.82 Long term (current) use of aspirin
CPT/HCPCS: 36600; 71010; 80053; 81001; 82010; 82550; 82805; 83690; 83735; 83880; 84484; 85025; 85610; 85730; 93005; 96360; 96361; 96372; 99285; J1815; J7030; J7040

== ENCOUNTER 2017-01-14 16:23 | Emergency (ER) | payer OTHER ==
[~2017-01-14] VITALS: Ht 177.8 cm; Wt 79.0 kg
[~2017-01-14 16:23] MED LIST changes: -AMIO200T PO; +APIX2.5T PO; -APIX5TAB PO; -ASPI81TA11 PO; +CHOL5000 PO; -FURO1TAB62 PO; -LEVO25TA4 PO; +LEVO50TA4 PO; +MAGN400T2 PO; +METF500T4 PO; -MODA100T9 PO; +MODA200T12 PO; -OXYC1TAB36 PO; -POTA10CA PO; +RITA10CA PO; -RITA20TA PO; -TEST-55 INJ; +VITA1000 PO; +VITA100T65 PO
[2017-01-14 16:31] VITALS: BP 113/90; PULSE 120; RESP 18; TEMP 98.2; O2SAT 96
[2017-01-14 16:43] VITALS: RESP 18; O2SAT 96
[2017-01-14] MEDS ORDERED: DILTIAZEM HCL 25 MG/5 ML VIAL IV PUSH ONE (16:45)
[2017-01-14] MEDS ORDERED: SODIUM CHLORIDE 0.9% FLUSH 10 ML FLUSH IVF PRN (16:45)
[2017-01-14 16:47] LABS: AUTOMATED NEUTROPHIL # 7.3 TH/MM3 (1.8-7.7); BASOPHIL # 0.1 TH/MM3 (0-0.2); BASOPHIL % 0.8 % (0.0-2.0); EOSINOPHIL # 0.4 TH/MM3 (0-0.4); HEMO FLAGS DIFF FINAL; LYMPH % 18.6 % (9.0-44.0); MEAN CELL VOLUME 79.4 FL (80.0-100.0); MEAN CORPUSCULAR HEMOGLOBIN 26.7 PG (27.0-34.0); MEAN CORPUSCULAR HGB CONC 33.6 % (32.0-36.0); MONO % 7.9 % (0.0-8.0); NEUT % 68.7 % (16.0-70.0); PLATELET COUNT 235 TH/MM3 (150-450); RED BLOOD COUNT 4.78 MIL/MM3 (4.50-5.90); RED CELL DISTRIBUTION WIDTH 14.6 % (11.6-17.2); WHITE BLOOD COUNT 10.6 TH/MM3 (4.0-11.0)
--- NOTE | 2017-01-14 16:55 | PD ---
HPI . Atrial fibrillation Chief Complaint: Cardiac Complaint Time Seen by Provider: 16:27 Travel History International Travel<30 days: No Contact w/Intl Traveler<30days: No Traveled to known affect area: No History of Present Illness HPI Patient presents complaining with the acute onset of atrial fibrillation. He states it started about an hour ago. He states that he feels nervous and anxious and median dizzy but does not have any chest pain or shortness of breath. Patient reports a positive previous similar history. This was associated with bypass surgery. He had been on Eliquis 5 mg twice a day because of intermittent atrial fibrillation. However, he has not had atrial fibrillation several months so his Eliquis has been reduced to 2.5 mg twice a day. He states that his previous episodes of atrial fibrillation spontaneously resolved. He and his state that they were given instructions to present to the hospital for sustained rapid ventricular response greater than 120. His heart rate was around 150 which prompted them to present to the emergency department. The patient is unaware of any factor that caused the atrial fibrillation today. PFSH Past Medical History Arthritis: Yes Anxiety: Yes Depression: Yes Cancer: Yes (BLADDER, SKIN ) Cardiovascular Problems: Yes (A FIB; TRIPLE BYPASS) Diabetes: Yes (METFORMIN) Patient Takes Glucophage: Yes Diminished Hearing: No Diverticulitis: Yes (LYMPHOCITIC CHOLITIS) Endocrine: No Gastrointestinal Disorders: Yes (LYMPHOCYTIC COLITIS) Glaucoma: No Genitourinary: No Hepatitis: No Hiatal Hernia: No Hypertension: Yes Immune Disorder: No Musculoskeletal: Yes (BACK PAIN) Neurologic: Yes (CHRONIC FATIGUE) Psychiatric: No Reproductive: No Respiratory: Yes (SLEEP APNEA (NO CPAP)) Thyroid Disease: No Influenza Vaccination: Yes Past Surgical History AICD: No Coronary Artery Bypass Graft: Yes Genitourinary Surgery: Yes (CYSTO, TURBT) Joint Replacement: No Oral Surgery: Yes (TONSILLECTOMY) Pacemaker: No Tonsillectomy: Yes Other Surgery: Yes Social History Alcohol Use: Yes (OCCAS. BEER) Tobacco Use: Yes (quit aug 2016) Substance Use: No Allergies-Medications (Allergen,Severity, Reaction): Coded Allergies: Cipro (Verified Allergy, Severe, Confusion, 01/13/17) Levaquin (Verified Allergy, Severe, 01/13/17) Dilaudid (Unverified Adverse Reaction, Severe, N & V, 01/13/17) Atorvastatin (Verified Adverse Reaction, Intermediate, Cramping, 01/13/17) Pt. said he could not walk at home because the cramping was so bad after taking Atorvastatin. Reported Meds & Prescriptions Reported Meds & Active Scripts Active Viagra (Sildenafil Citrate) 100 Mg Tab 100 Mg PO DAILY PRN Metoprolol Tartrate 25 Mg Tab 25 Mg PO BID Onetouch Ultra 2 Glucose System (Device) 1 Kit Kit 1 Kit .ROUTE DIRECTED Reported Vitamin D3 (Cholecalciferol) 5,000 Unit Cap 5,000 Units PO DAILY Vitamin D-1000 (Cholecalciferol) 1,000 Unit Tab 5,000 Units PO DAILY Vitamin E 100 Unit Tab 100 Units PO DAILY Magnesium Oxide 400 Mg Tab 400 Mg PO DAILY Modafinil 200 Mg Tab 200 Mg PO BID Ritalin LA 24 HR (Methylphenidate HCl) 10 Mg Caper 10 Mg PO DAILY 10mg bid then 20mg once daily Levothyroxine (Levothyroxine Sodium) 50 Mcg Tab 50 Mcg PO DAILY Metformin ER (Metformin HCl) 500 Mg Pedro 250 Mg PO BID With evening meal Eliquis (Apixaban) 2.5 Mg Tab 2.5 Mg PO BID B Complex (B-Complex Vitamins) 1 Cap 1 Cap PO DAILY Review of Systems Except as stated in HPI: all other systems reviewed are Neg HENT: Positive: Lightheadedness Cardiovascular: No: Chest Pain or Discomfort Respiratory: No: Shortness of Breath Gastrointestinal: No: Nausea Psychiatric: Positive: Anxiety Physical Exam Narrative GENERAL: Awake and alert in no acute distress. SKIN: Warm and dry. HEAD: Atraumatic. Normocephalic. EYES: Pupils equal and round. Extraocular movements are ENT: No nasal bleeding or discharge. Mucous membranes pink and moist. NECK: Trachea midline. Neck is supple. CARDIOVASCULAR: Irregularly irregular rate and rhythm with a rate the anywhere between 120 and 175. RESPIRATORY: No accessory muscle use. Lungs sound clear with good air movement throughout. GASTROINTESTINAL: Abdomen soft, non-tender, nondistended. MUSCULOSKELETAL: No obvious deformities. No edema. NEUROLOGICAL: Awake and alert. No obvious cranial nerve deficits. Motor grossly within normal limits. Normal speech. PSYCHIATRIC: Appropriate mood and affect; insight and judgment normal. Data Data Last Documented VS Vital Signs Date Time Temp Pulse Resp B/P Pulse Ox O2 Delivery O2 Flow Rate FiO2 01/14/17 17:00 84 18 98/68 96 Room Air 01/14/17 16:31 98.2 Orders Diltiazem Inj (Cardizem Inj) (01/14/17 16:45) Basic Metabolic Panel (Bmp) (01/14/17 16:35) Ckmb (Isoenzyme) Profile (01/14/17 16:35) Complete Blood Count With Diff (01/14/17 16:35) Magnesium (Mg) (01/14/17 16:35) Troponin I (01/14/17 16:35) Ecg Monitoring (01/14/17 16:35) Iv Access Insert/Monitor (01/14/17 16:35) Oximetry (01/14/17 16:35) Sodium Chloride 0.9% Flush (Ns Flush) (01/14/17 16:45) CKMB (01/14/17 16:35) CKMB% (01/14/17 16:35) Labs Laboratory Tests Test 01/14/17 16:35 White Blood Count 10.6 TH/MM3 Red Blood Count 4.78 MIL/MM3 Hemoglobin 12.8 GM/DL Hematocrit 38.0 % Mean Corpuscular Volume 79.4 FL Mean Corpuscular Hemoglobin 26.7 PG Mean Corpuscular Hemoglobin 33.6 % Concent Red Cell Distribution Width 14.6 % Platelet Count 235 TH/MM3 Mean Platelet Volume 8.2 FL Neutrophils (%) (Auto) 68.7 % Lymphocytes (%) (Auto) 18.6 % Monocytes (%) (Auto) 7.9 % Eosinophils (%) (Auto) 4.0 % Basophils (%) (Auto) 0.8 % Neutrophils # (Auto) 7.3 TH/MM3 Lymphocytes # (Auto) 2.0 TH/MM3 Monocytes # (Auto) 0.8 TH/MM3 Eosinophils # (Auto) 0.4 TH/MM3 Basophils # (Auto) 0.1 TH/MM3 CBC Comment DIFF FINAL Differential Comment Sodium Level 138 MEQ/L Potassium Level 4.0 MEQ/L Chloride Level 103 MEQ/L Carbon Dioxide Level 25.9 MEQ/L Anion Gap 9 MEQ/L Blood Urea Nitrogen 17 MG/DL Creatinine 1.00 MG/DL Estimat Glomerular Filtration 75 ML/MIN Rate Random Glucose 135 MG/DL Calcium Level 8.8 MG/DL Magnesium Level 2.1 MG/DL Total Creatine Kinase 185 U/L Creatine Kinase MB 3.4 NG/ML Troponin I LESS THAN 0.02 NG/ML MDM Medical Decision Making Medical Screen Exam Complete: Yes Emergency Medical Condition: Yes Differential Diagnosis Differential diagnosis of palpitations includes but is not limited to anxiety, SVT, aVF with RVR, VT, sinus tachycardia, PVCs Narrative Course Patient presents with recurrent A. fib. I will give him a dose of Cardizem 0.25 mg/kg. I will check his cardiac enzymes, CBC and electrolytes. If his rate is controlled, he will be discharged to home with instructions to increase his Eliquis to 5 mg twice a day and follow up with his residential support worker. CBC & BMP Diagram 01/14/17 16:35 Cardiac enzymes are negative. Heart rate has been consistently less than 100. This patient will be discharged home with instructions to follow up with his residential support worker. I'll increase his Eliquis from 2.5-5 mg twice a day. Diagnosis Primary Impression: Afib Qualified Code: I48.0 - Paroxysmal atrial fibrillation Med/Other Pt SpecificInfo: Existing Med Changed Scripts Apixaban (Eliquis)5 Mg Tab5 Mg PO BID #60 TAB Prov:Ernestina Burks MD 01/14/17 Disposition: 01 DISCHARGE HOME Condition: Stable Ernestina Burks MD Jan 14, 2017 16:54
[2017-01-14 16:57] LABS: CHLORIDE 103 MEQ/L (98-107); SODIUM (NA) 138 MEQ/L (136-145)
[2017-01-14 17:00] VITALS: BP 98/68; PULSE 84; RESP 18; O2SAT 96
[2017-01-14 17:00] LABS: ANION GAP 9 MEQ/L (5-15); BICARBONATE 25.9 MEQ/L (21.0-32.0); BLOOD UREA NITROGEN 17 MG/DL (7-18); MAGNESIUM 2.1 MG/DL (1.5-2.5)
[2017-01-14 17:03] LABS: GLOMERULAR FILTRATION RATE 75 ML/MIN (>89)
[2017-01-14 17:06] LABS: CREATINE KINASE 185 U/L (39-308)
[2017-01-14 17:19] LABS: CKMB 3.4 NG/ML (0.5-3.6)
[2017-01-14] MEDS ORDERED: APIX5TAB PO (17:25)
--- NOTE | 2017-01-15 12:17 | EKG ---
Date Performed: 01/14/2017 Time Performed: 16:23:35 PTAGE: 66 years EKG: ATRIAL FIBRILLATION WITH RAPID VENTRICULAR RESPONSE MINIMAL ST DEPRESSION Compared to previ ous tracing, atrial fibrillation with rapid response is now present. ABNORMAL RHYTHM ECG PREVIOUS TRACING : 12/13/2016 00.50 DOCTOR: Obdulio Rangel Interpretating Date/Time 01/15/2017 12:15:08
== END 2017-01-14 17:39 | disposition home or self-care (01) ==
LOC: PHED 16:23
DX: I48.0 Paroxysmal atrial fibrillation (principal); R94.31 Abnormal electrocardiogram [ECG] [EKG]; I10 Essential (primary) hypertension; E11.9 Type 2 diabetes mellitus without complications; Z79.01 Long term (current) use of anticoagulants; Z79.84 Long term (current) use of oral hypoglycemic drugs; Z95.1 Presence of aortocoronary bypass graft; Z86.79 Personal history of other diseases of the circulatory system; Z87.39 Personal history of other diseases of the musculoskeletal system and connective tissue; Z86.59 Personal history of other mental and behavioral disorders; Z87.19 Personal history of other diseases of the digestive system; Z86.69 Personal history of other diseases of the nervous system and sense organs; Z87.09 Personal history of other diseases of the respiratory system; Z87.891 Personal history of nicotine dependence
CPT/HCPCS: 80048; 82550; 82552; 83735; 84484; 85025; 93005; 96374